=== PATIENT | female | born 1955 | race Caucasian/White ===

== ENCOUNTER 2017-12-18 09:02 | Emergency (ER) | payer MEDICARE, OTHER ==
[2017-12-18 09:17] VITALS: BP 136/88; PULSE 81; RESP 20; TEMP 98.7; O2SAT 99; BMI 30.2
[2017-12-18] MEDS ORDERED: Naproxen 550 mg Tab PO STA (09:41)
--- NOTE | 2017-12-18 09:44 | C.PDOC ---
History Of Present Illness 62 year old female presents to the ED for evaluation of muscle tenderness to her right medial scapular area for 1 week. She has been applying heat to the area and taking hot showers, which been worsening her symptoms. Patient denies falls or recent trauma/injury to the affected area. Time Seen by Provider: 12/18/17 09:29 Chief Complaint (Nursing): Back Pain History Per: Patient History/Exam Limitations: no limitations Onset/Duration Of Symptoms: Other (1 week) Current Symptoms Are (Timing): Still Present Quality Of Discomfort: "Pain" Additional History Per: Patient Past Medical History Reviewed: Historical Data, Nursing Documentation, Vital Signs Vital Signs: Last Vital Signs Temp 98.7 F 12/18/17 09:11 Pulse 81 12/18/17 09:11 Resp 20 12/18/17 09:11 BP 136/88 12/18/17 09:11 Pulse Ox 99 12/18/17 10:46 - Medical History PMH: Anxiety, Depression, HTN, Osteoporosis, Sleep Apnea (SCHEDULED FOR SLEEP STUDY) Denies: Chronic Kidney Disease Surgical History: No Surg Hx - [facility] Procedures ENDOSC POLYPECTOMY OF LG INTEST (08/25/14) Family History: States: Unknown Family Hx - Social History Hx Tobacco Use: No Hx Alcohol Use: No Hx Substance Use: No - Immunization History Hx Tetanus Toxoid Vaccination: No Hx Influenza Vaccination: No Hx Pneumococcal Vaccination: No Review Of Systems Musculoskeletal: Positive for: Other (muscle tenderness to right medial scapular area) Physical Exam - Physical Exam Appears: Non-toxic, No Acute Distress Skin: Normal Color, Warm, Dry Neck: Supple Back: Other (mild tenderness and swelling to right medial scapular region ) Extremity: Normal ROM, Capillary Refill (less than 2 seconds ) Neurological/Psych: Oriented x3, Normal Speech, Normal Cognition, Normal Sensation Gait: Steady ED Course And Treatment O2 Sat by Pulse Oximetry: 99 (on RA) Pulse Ox Interpretation: Normal Progress Note: Naproxen PO and Motrin PO administered. Medical Decision Making Medical Decision Making: thoracic paraspinal trapezius strain no s/s of onc process worse with prior heat therapies. ibuprofen makes her feel tired, so naproxyn- better tolerated. Disposition Doctor Will See Patient In The: Office Counseled Patient/Family Regarding: Studies Performed - Disposition Referrals: Brad Whittaker MD [Staff Provider] - Disposition: HOME/ ROUTINE Disposition Time: 09:44 Condition: GOOD Additional Instructions: [place]ols[place] de hielo 1/2 hora por hora, nada caliente, no gary caliente Naproxyn 550 mg cada 12 horas ramiro necessario Sigue con [facility]- pide MRI si no esta mejor en 2 semanas. Prescriptions: Naproxen [Naprosyn] 1 tab PO BID PRN #25 tab PRN Reason: Pain Instructions: Musculoskeletal Pain (ED) Forms: [employer] (Yoruba) Print Language: POLISH - Clinical Impression Clinical Impression: Thoracic back sprain - Scribe Statement The provider has reviewed the documentation as recorded by the Scribe (Marni Dahl) Provider Attestation: All medical record entries made by the Scribe were at my direction and personally dictated by me. I have reviewed the chart and agree that the record accurately reflects my personal performance of the history, physical exam, medical decision making, and the department course for this patient. I have also personally directed, reviewed, and agree with the discharge instructions and disposition.
[2017-12-18] MEDS ORDERED: Naproxen 550 mg Tab PO ONE (09:51)
== END 2017-12-18 10:10 | disposition home or self-care (01) ==
LOC: C.ER 09:02
DX: S23.3XXA Sprain of ligaments of thoracic spine, initial encounter (principal); X58.XXXA Exposure to other specified factors, initial encounter; Y92.9 Unspecified place or not applicable

== ENCOUNTER 2018-04-28 14:39 | Emergency (ER) | payer MEDICARE, OTHER ==
[2018-04-28 14:39] VITALS: BMI 29.2
[2018-04-28 14:54] VITALS: RESP 18
[2018-04-28] MEDS ORDERED: Sodium Chloride 0.9% 1,000 ML IV ONE (15:19)
[2018-04-28 15:43] LABS: BASO % 0.4 % (0.0-2.0); EOS % 0.2 % (0.0-4.0); HEMOGLOBIN 13.2 g/dL (11.0-16.0); LYMPH # 1.3 K/uL (1.0-4.3); LYMPH % 10.3 % (20.0-40.0); MEAN CELL VOLUME 85.6 fL (81.0-99.0); MEAN CORPUSCULAR HEMOGLOBIN 28.5 pg (27.0-31.0); MEAN CORPUSCULAR HGB CONC 33.3 g/dL (33.0-37.0); MEAN PLATELET VOLUME 7.2 fL (7.2-11.7); MONO # 1.6 K/uL (0.0-0.8); MONO % 12.6 % (0.0-10.0); NEUT % 76.5 % (50.0-75.0); RBC 4.62 Mil/uL (3.80-5.20); RED CELL DISTRIBUTION WIDTH 14.4 % (11.5-14.5); WHITE BLOOD COUNT 13.1 K/uL (4.8-10.8)
[2018-04-28] MEDS ORDERED: Sodium Chloride 0.9% 1,000 ML ONE (15:43)
[2018-04-28 16:00] LABS: ALB/GLOB RATIO 1.1 (1.0-2.1); CALCIUM 8.9 mg/dl (8.6-10.4); GFR AFRICAN-AMERICAN > 60; GFR NON-AFRICAN AMERICAN > 60; LIPASE 84 U/L (23-300)
[2018-04-28 16:04] LABS: ALT/SGPT 20 U/L (9-52); AST/SGOT 33 U/L (14-36); BLOOD UREA NITROGEN 10 mg/dL (7-17)
[2018-04-28] MEDS ORDERED: Iohexol 300 100 ML IJ ONE (16:22)
--- NOTE | 2018-04-28 17:35 | CT ---
PROCEDURE: CT Abdomen and Pelvis with contrast HISTORY: abd pain COMPARISON: None. TECHNIQUE: Following the intravenous administration of iodinated contrast material, a CT examination of the abdomen and pelvis performed from the domes of the diaphragms to the symphysis pubis with reformatted datasets provided not only axial but also sagittal and coronal planes. Oral contrast was not administered as per referring physician request. Contrast dose: Omnipaque 300, 100 cc Radiation dose: Total exam DLP = 643.46 mGy-cm. This CT exam was performed using one or more of the following dose reduction techniques: Automated exposure control, adjustment of the mA and/or kV according to patient size, and/or use of iterative reconstruction technique. FINDINGS: LOWER THORAX: Cardiomegaly Trace bilateral basilar dependent atelectasis identified. LIVER: Diffusely diminished attenuation is seen throughout the liver without focal mass or biliary tree dilatation, compatible hepatic steatosis. Liver also appears upper limits normal size. GALLBLADDER AND BILE DUCTS: Unremarkable. PANCREAS: Unremarkable. No gross lesion or ductal dilatation. SPLEEN: Unremarkable. ADRENALS: Unremarkable. No mass. KIDNEYS AND URETERS: Unremarkable. No hydronephrosis. No solid mass. VASCULATURE: Unremarkable. No aortic aneurysm. BOWEL: Stomach is decompressed as well as the vast majority of small bowel. No bowel obstruction is evident. Limited fecal loading is seen in various large-bowel segments. A tiny cecal diverticulum is evident as well as a few proximal sigmoid diverticula, without diverticulitis. APPENDIX: Not identified. Consider prior possible prior appendectomy. Nevertheless, no acute right lower quadrant changes are identified. PERITONEUM: Unremarkable. No free fluid. No free air. LYMPH NODES: Unremarkable. No enlarged lymph nodes. BLADDER: Unremarkable. REPRODUCTIVE: Questionable prior hysterectomy. The correlate further. BONES: No acute fracture. OTHER FINDINGS: None. IMPRESSION: 1. Hepatic steatosis and borderline hepatomegaly. 2. Infrequent colonic diverticular without acute changes. 3. No bowel obstruction, measure edema, ascites or free intraperitoneal gas appreciable. 4. Questionable prior hysterectomy. Clinically correlate.
[2018-04-28 18:13] VITALS: O2SAT 97
--- NOTE | 2018-04-28 18:16 | C.PDOC ---
History Of Present Illness 62 y/o female presents to ED with c/o abdominal pain associated with nausea and vomiting since last night. At ED patient is febrile and reports pain is worse of epigastric area. Patient denies diarrhea, dysuria, hematuria, back pain or any other complaints at this time. Time Seen by Provider: 04/28/18 14:47 Chief Complaint (Nursing): Abdominal Pain History Per: Patient History/Exam Limitations: no limitations Onset/Duration Of Symptoms: Days Current Symptoms Are (Timing): Still Present Location Of Pain/Discomfort: Epigastric Radiation Of Pain To:: None Quality Of Discomfort: "Pain" Past Medical History Reviewed: Historical Data, Nursing Documentation, Vital Signs Vital Signs: Last Vital Signs Temp 99.7 F H 04/28/18 18:54 Pulse 102 H 04/28/18 18:54 Resp 18 04/28/18 18:54 BP 111/66 04/28/18 18:54 Pulse Ox 97 04/28/18 20:11 - Medical History PMH: Anxiety, Depression, HTN, Osteoporosis, Chronic Kidney Disease, Sleep Apnea (SCHEDULED FOR SLEEP STUDY) Surgical History: No Surg Hx - [facility] Procedures ENDOSC POLYPECTOMY OF LG INTEST (08/25/14) Family History: States: No Known Family Hx - Social History Hx Tobacco Use: No Hx Alcohol Use: No Hx Substance Use: No - Immunization History Hx Tetanus Toxoid Vaccination: No Hx Influenza Vaccination: No Hx Pneumococcal Vaccination: No Review Of Systems Constitutional: Negative for: Fever, Chills Gastrointestinal: Positive for: Abdominal Pain. Negative for: Nausea, Vomiting , Diarrhea, Constipation Genitourinary: Negative for: Dysuria, Hematuria Musculoskeletal: Negative for: Back Pain Skin: Negative for: Rash Neurological: Negative for: Weakness, Numbness Physical Exam - Physical Exam Appears: Non-toxic, No Acute Distress Skin: Warm, Dry, No Rash Head: Atraumatic, Normacephalic Eye(s): bilateral: Normal Inspection Oral Mucosa: Moist Neck: Normal ROM, Supple Cardiovascular: Rhythm Regular Respiratory: Normal Breath Sounds, No Rales, No Rhonchi, No Wheezing Gastrointestinal/Abdominal: Soft, Tenderness (Epigastric), No Guarding, No Rebound Extremity: Normal ROM, Capillary Refill (<2 seconds) Neurological/Psych: Oriented x3, Normal Speech, Normal Cognition ED Course And Treatment - Laboratory Results Result Diagrams: 04/28/18 15:33 04/28/18 15:33 O2 Sat by Pulse Oximetry: 97 (RA) Pulse Ox Interpretation: Normal Medical Decision Making Medical Decision Making: ro gastroenteitits, gastritis, pud, gallbladder disease ct neg. mild non specific luekoctyosis. bedsdie us neg for cholecystitis. pt states she feels well for dc. tolerating po bedside. abd soft no ttp. b/p incorrectly documented 86 systolci. immediate subsequent b/p 107 systolci. Disposition - Disposition Referrals: [facility] [Outside] [facility] [Outside] Doris Loya [Staff Provider] - Disposition: HOME/ ROUTINE Disposition Time: 20:00 Condition: STABLE Additional Instructions: please follow up with your doctor. return to er with worsening symptoms or concerns. Prescriptions: Famotidine [Pepcid] 20 mg PO DAILY #20 tab Instructions: Nausea and Vomiting, Adult, Viral Gastroenteritis, Adult (DC) Forms: [employer] (Slovak) - Clinical Impression Clinical Impression: Abdominal pain - Scribe Statement The provider has reviewed the documentation as recorded by the Scribkerry Lebron All medical record entries made by the Scribe were at my direction and personally dictated by me. I have reviewed the chart and agree that the record accurately reflects my personal performance of the history, physical exam, medical decision making, and the department course for this patient. I have also personally directed, reviewed, and agree with the discharge instructions and disposition.
[2018-04-28 18:18] LABS: SQUAMOUS EPITHIAL 1 /hpf (0-5); URINE BILIRUBIN NEGATIVE (NEGATIVE); URINE BLOOD 1+ (NEGATIVE); URINE CLARITY Clear (Clear); URINE COLOR Straw (YELLOW); URINE GLUCOSE (UA) NORMAL (Normal); URINE LEUKOCYTE ESTERASE TRACE Leu/uL (Negative); URINE PROTEIN NEGATIVE (NEGATIVE); URINE UROBILINOGEN NORMAL mg/dL (0.2-1.0)
[2018-04-28 18:21] LABS: URINE BACTERIA RARE (<OCC)
[2018-04-28 18:55] VITALS: BP 111/66; PULSE 102; TEMP 99.7
== END 2018-04-28 18:55 | disposition home or self-care (01) ==
LOC: C.ER 14:39
DX: R10.9 Unspecified abdominal pain (principal); I12.9 Hypertensive chronic kidney disease with stage 1 through stage 4 chronic kidney disease, or unspecified chronic kidney disease; N18.9 Chronic kidney disease, unspecified
CPT/HCPCS: 74177; 80053; 81001; 83690; 85025; 96361; 96374; 96375; 99285; C9113; J2405; J7030; Q9967

== ENCOUNTER 2018-07-07 15:20 | Inpatient (IN) | payer MEDICARE, OTHER ==
[2018-07-07 15:21] VITALS: BMI 29.2
--- NOTE | 2018-07-07 15:39 | C.PDOC ---
History Of Present Illness <Felicitas Swartz - Last Filed: 07/07/18 15:38> <Caridad Brewster - Last Filed: 07/07/18 16:58> 62 year old female presents to ED complaining of fever associated with nausea, vomiting, and chills since 04:00 today. Patient reports she had something similar to this a few months ago and went to a hospital and got a work up. Patient is a poor historian and does not remember what hospital she went to, or what the diagnosis was. Patient offers no other medical complaints at this time. (Ney,Caridad) <Felicitas Swartz - Last Filed: 07/07/18 15:38> History Per: Patient History/Exam Limitations: no limitations Onset/Duration Of Symptoms: Hrs Current Symptoms Are (Timing): Still Present <Caridad Brewster - Last Filed: 07/07/18 16:58> Time Seen by Provider: 07/07/18 15:37 Chief Complaint (Nursing): Abdominal Pain Past Medical History - Medical History PMH: Anxiety, Depression, HTN, Osteoporosis, Chronic Kidney Disease, Sleep Apnea (SCHEDULED FOR SLEEP STUDY) - Social History Hx Tobacco Use: No Hx Alcohol Use: No Hx Substance Use: No - Immunization History Hx Tetanus Toxoid Vaccination: No Hx Influenza Vaccination: No Hx Pneumococcal Vaccination: No <Felicitas Swartz - Last Filed: 07/07/18 15:38> Reviewed: Historical Data, Nursing Documentation, Vital Signs Surgical History: No Surg Hx Family History: States: No Known Family Hx <Caridad Brewster - Last Filed: 07/07/18 16:58> Vital Signs: Last Vital Signs Temp 102.8 F H 07/07/18 15:27 Pulse 110 H 07/07/18 15:27 Resp 21 07/07/18 15:27 BP 147/90 07/07/18 15:27 Pulse Ox 98 07/07/18 15:39 - [facility] Procedures ENDOSC POLYPECTOMY OF LG INTEST (08/25/14) Review Of Systems Except As Marked, All Systems Reviewed And Found Negative. Constitutional: Positive for: Fever, Chills Gastrointestinal: Positive for: Nausea, Vomiting Neurological: Negative for: Weakness, Numbness <Caridad Brewster - Last Filed: 07/07/18 16:58> Physical Exam - Physical Exam Appears: Well, Non-toxic, No Acute Distress Skin: Warm, Dry Head: Atraumatic, Normacephalic Eye(s): bilateral: Normal Inspection Oral Mucosa: Moist Neck: Supple Chest: Symmetrical Cardiovascular: Rhythm Regular (tachycardic) Respiratory: Normal Breath Sounds, No Rales, No Rhonchi, No Wheezing Gastrointestinal/Abdominal: Soft, Tenderness (epigastric), No Guarding, No Rebound Neurological/Psych: Oriented x3 Gait: Steady <Cairdad Brewster - Last Filed: 07/07/18 16:58> ED Course And Treatment O2 Sat by Pulse Oximetry: 98 <Felicitas Swartz - Last Filed: 07/07/18 15:38> - Laboratory Results Result Diagrams: 07/07/18 16:03 07/07/18 16:03 O2 Sat by Pulse Oximetry: 98 (RA) Pulse Ox Interpretation: Normal <Caridad Brewster - Last Filed: 07/07/18 16:58> Disposition <Felicitas Swartz - Last Filed: 07/07/18 15:38> <Caridad Brewster - Last Filed: 07/07/18 16:58> - Disposition Forms: [employer] (Monegasque)
[2018-07-07] MEDS ORDERED: Sodium Chloride 0.9% 1,000 ML IV STA (15:43)
[2018-07-07 16:12] LABS: BASO % 0.4 % (0.0-2.0); EOS % 0.3 % (0.0-4.0); HEMOGLOBIN 12.6 g/dL (11.0-16.0); LYMPH # 1.7 K/uL (1.0-4.3); LYMPH % 18.3 % (20.0-40.0); MEAN CELL VOLUME 84.1 fL (81.0-99.0); MEAN CORPUSCULAR HEMOGLOBIN 28.2 pg (27.0-31.0); MEAN CORPUSCULAR HGB CONC 33.5 g/dL (33.0-37.0); MEAN PLATELET VOLUME 7.2 fL (7.2-11.7); MONO # 0.9 K/uL (0.0-0.8); MONO % 10.2 % (0.0-10.0); NEUT # 6.4 K/uL (1.8-7.0); NEUT % 70.8 % (50.0-75.0); NRBC % 0.2 % (0.0-2.0); RBC 4.46 Mil/uL (3.80-5.20); WHITE BLOOD COUNT 9.1 K/uL (4.8-10.8)
[2018-07-07 16:14] LABS: SQUAMOUS EPITHIAL 16 /hpf (0-5); URINE BACTERIA RARE (<OCC); URINE BILIRUBIN NEGATIVE (NEGATIVE); URINE BLOOD 1+ (NEGATIVE); URINE CLARITY Hazy (Clear); URINE COLOR Yellow (YELLOW); URINE GLUCOSE (UA) NORMAL (Normal); URINE LEUKOCYTE ESTERASE 3+ Leu/uL (Negative); URINE PROTEIN NEGATIVE (NEGATIVE); URINE UROBILINOGEN NORMAL mg/dL (0.2-1.0)
[2018-07-07 16:22] LABS: ALB/GLOB RATIO 1.3 (1.0-2.1); ALBUMIN 4.2 g/dL (3.5-5.0); ALT/SGPT 35 U/L (9-52); AST/SGOT 24 U/L (14-36); BLOOD UREA NITROGEN 10 mg/dL (7-17); CALCIUM 9.2 mg/dl (8.6-10.4); GFR AFRICAN-AMERICAN > 60; GFR NON-AFRICAN AMERICAN > 60; LIPASE 81 U/L (23-300)
--- NOTE | 2018-07-07 16:24 | RAD ---
Date of service: 07/07/2018 PROCEDURE: CHEST RADIOGRAPH, 1 VIEW HISTORY: abd pain, fever COMPARISON: Chest radiographs 12/06/2015. FINDINGS: LUNGS: Reticular markings are somewhat increased at the bases appears unclear with this is a function of crowding of bronchovascular markings from limited inspiratory volume or possible early bibasilar interstitial pneumonitis. Consider possible reactive airways disease or other infectious or inflammatory process. PLEURA: No pneumothorax or pleural fluid seen. CARDIOVASCULAR: Stable cardiomediastinal silhouette. No pulmonary vascular congestion. OSSEOUS STRUCTURES: No significant abnormalities. VISUALIZED UPPER ABDOMEN: Normal. OTHER FINDINGS: None. IMPRESSION: Potential limited interstitial pneumonitis of the bilateral bases though this is not definite. Pattern may be a function of crowding of bronchovascular markings do through diminished inspiratory volume. No alveolitis, pleural effusion or pneumothorax bilaterally. Stable prominent cardiac silhouette.
--- NOTE | 2018-07-07 17:03 | C.PDOC ---
History Of Present Illness 62 year old female presents to ED complaining of fever associated with nausea, vomiting, and chills since 04:00 today. Patient reports she had something similar to this a few months ago and went to a hospital and got a work up. Patient is a poor historian and does not remember what hospital she went to, or what the diagnosis was. Patient offers no other medical complaints at this time. Time Seen by Provider: 07/07/18 15:37 Chief Complaint (Nursing): Abdominal Pain History Per: Patient History/Exam Limitations: no limitations Onset/Duration Of Symptoms: Hrs Current Symptoms Are (Timing): Still Present Associated Symptoms: Fever, Chills, Nausea, Vomiting Recent travel outside of the [place]: No Past Medical History Reviewed: Historical Data, Nursing Documentation, Vital Signs Vital Signs: Last Vital Signs Temp 100.2 F H 07/07/18 17:03 Pulse 111 H 07/07/18 17:03 Resp 20 07/07/18 17:03 BP 116/79 07/07/18 17:03 Pulse Ox 98 07/07/18 17:57 - Medical History PMH: Anxiety, Depression, HTN, Osteoporosis, Chronic Kidney Disease, Sleep Apnea (SCHEDULED FOR SLEEP STUDY) Surgical History: No Surg Hx - [facility] Procedures ENDOSC POLYPECTOMY OF LG INTEST (08/25/14) Family History: States: No Known Family Hx - Social History Hx Tobacco Use: No Hx Alcohol Use: No Hx Substance Use: No - Immunization History Hx Tetanus Toxoid Vaccination: No Hx Influenza Vaccination: No Hx Pneumococcal Vaccination: No Review Of Systems Constitutional: Positive for: Fever, Chills Gastrointestinal: Positive for: Nausea, Vomiting Neurological: Negative for: Weakness, Numbness Physical Exam - Physical Exam Appears: Well, Non-toxic, No Acute Distress Skin: Warm, Dry Head: Atraumatic, Normacephalic Eye(s): bilateral: Normal Inspection Neck: Supple Chest: Symmetrical Cardiovascular: Rhythm Regular (tachycardic) Respiratory: Normal Breath Sounds, No Rales, No Rhonchi, No Wheezing Gastrointestinal/Abdominal: Soft, Tenderness (epigastric ), No Guarding, No Rebound Neurological/Psych: Oriented x3 Gait: Steady ED Course And Treatment - Laboratory Results Result Diagrams: 07/07/18 16:03 07/07/18 16:03 O2 Sat by Pulse Oximetry: 98 (RA) Pulse Ox Interpretation: Normal - Other Rad CXR X-Ray: Read By Radiologist Interpretation: FINDINGS: LUNGS: Reticular markings are somewhat increased at the bases appears unclear with this is a function of crowding of bronchovascular markings from limited inspiratory volume or possible early bibasilar interstitial pneumonitis. Consider possible reactive airways disease or other infectious or inflammatory process. PLEURA: No pneumothorax or pleural fluid seen. CARDIOVASCULAR: Stable cardiomediastinal silhouette. No pulmonary vascular congestion. OSSEOUS STRUCTURES: No significant abnormalities. VISUALIZED UPPER ABDOMEN: Normal. OTHER FINDINGS: None. IMPRESSION: Potential limited interstitial pneumonitis of the bilateral bases though this is not definite. Pattern may be a function of crowding of bronchovascular markings do through diminished inspiratory volume. No alveolitis , pleural effusion or pneumothorax bilaterally. Stable prominent cardiac silhouette. - CT Scan/US US Abdomen Other Rad Studies (CT/US): Radiology Report Reviewed CT/US Interpretation: FINDINGS: LIVER: Measures 17.8 cm in length. Hepatopedal blood flow. Fatty infiltration manifest ultrasonographically as increased echogenicity of the liver parenchyma. No mass. No intrahepatic bile duct dilatation. GALLBLADDER: Unremarkable. No gallstones. COMMON BILE DUCT: Measures 4.2 mm. No stones. No dilatation. PANCREAS: Unremarkable as visualized. No mass. No ductal dilatation. RIGHT KIDNEY: Measures 4 x 10.5 cm in length. Normal echogenicity. No calculus, mass, or hydronephrosis. AORTA: No aneurysmal dilatation. IVC: Unremarkable. OTHER FINDINGS: None . IMPRESSION: No acute findings related to/accounting for the clinical presentation. Additional benign and/or incidental findings described above. Progress Note: Labs, US of abdomen ordered. Patient given tylenol 975 mg PO, zofran, and IV fluids. Case was d/w who requested CT abdomen with po and IV contrast and accepted patient to [place] for observation. Disposition - Disposition Disposition: HOSPITALIZED Disposition Time: 18:36 Condition: FAIR Forms: [facility] (Belarusian) - Clinical Impression Clinical Impression: Vomiting, Abdominal pain, UTI (urinary tract infection), Pneumonitis - PA / WELFARE ANALYST / Resident Statement MD/DO has reviewed & agrees with the documentation as recorded. - Scribe Statement The provider has reviewed the documentation as recorded by the Romarioibe Venkatesh Ludwig All medical record entries made by the Hany were at my direction and personally dictated by me. I have reviewed the chart and agree that the record accurately reflects my personal performance of the history, physical exam, medical decision making, and the department course for this patient. I have also personally directed, reviewed, and agree with the discharge instructions and disposition. Decision To Admit - Pt Status Changed To: Hospital Disposition Of: Observation - . Bed Request Type: Regular Admitting Physician: Jamarcus Hudson Patient Diagnosis: Vomiting, Abdominal pain, UTI (urinary tract infection), Pneumonitis
--- NOTE | 2018-07-07 17:15 | US ---
Date of service: 07/07/2018 HISTORY: epigastric pain/fever COMPARISON: None. TECHNIQUE: Sonographic evaluation of the right upper quadrant of the abdomen. FINDINGS: LIVER: Measures 17.8 cm in length. Hepatopedal blood flow. Fatty infiltration manifest ultrasonographically as increased echogenicity of the liver parenchyma. No mass. No intrahepatic bile duct dilatation. GALLBLADDER: Unremarkable. No gallstones. COMMON BILE DUCT: Measures 4.2 mm. No stones. No dilatation. PANCREAS: Unremarkable as visualized. No mass. No ductal dilatation. RIGHT KIDNEY: Measures 4 x 10.5 cm in length. Normal echogenicity. No calculus, mass, or hydronephrosis. AORTA: No aneurysmal dilatation. IVC: Unremarkable. OTHER FINDINGS: None . IMPRESSION: No acute findings related to/accounting for the clinical presentation. Additional benign and/or incidental findings described above.
[2018-07-07] MEDS ORDERED: cefTRIAXone IV 1 gm in Dextros 50 ML IVPB ONE (17:59)
[2018-07-07] MEDS ORDERED: Iohexol 240 (50 ml) PO STA (18:33)
[2018-07-07] MEDS ORDERED: Iohexol 240 (50 ml) ONE (18:41)
[2018-07-07] MEDS ORDERED: Iohexol 300 100 ML IJ ONE (19:03)
[2018-07-07 22:11] LABS: SQUAMOUS EPITHIAL 5 /hpf (0-5); URINE BILIRUBIN NEGATIVE (NEGATIVE); URINE BLOOD 1+ (NEGATIVE); URINE CLARITY Clear (Clear); URINE COLOR Yellow (YELLOW); URINE GLUCOSE (UA) NORMAL (Normal); URINE LEUKOCYTE ESTERASE 3+ Leu/uL (Negative); URINE PROTEIN NEGATIVE (NEGATIVE); URINE UROBILINOGEN NORMAL mg/dL (0.2-1.0)
--- NOTE | 2018-07-07 23:03 | CP.PCM.HP ---
<Delfina Morales - Last Filed: 07/07/18 23:19> History of Present Illness - History of Present Illness History of Present Illness: CC: Abdominal pain HPI: Patient is a 62 year old female with past medical history of hypertension, depression, gastritis, arthritis, osteoporosis, sleep apnea ( on Bipap at home), who presents to the ED with complaint of epigastric pain> lower abdominal pain with associated symptoms of subjective fever, nausea, non- bilious vomiting(x2) and urinary frequency x1-2 days. Patient reports that she was diagnosed with UTI 3 months ago and was seen by a Urologist, who prescribed a course of antibiotics for 10 days. Patient was suppose to follow up with the urologist but she never did. Patient admits to subjective fever, chills, nausea , vomiting, abdominal pain (epigastric> lower region), urinary frequency but denies hematuria, hematochezia, recent sickness, sick contact. Code Status: Full code PMD: Dr. Whittaker PMHx: hypertension, depression, gastritis, arthritis, osteoporosis, sleep apnea ( on Bipap at home) PSHx: X1, Hysterectomy and Fibroid removal FHx: Father ( alive, cardiomyopathy), Paternal Uncle ( Cardiomyopathy), Mother ( alive, lymphoma, DM and Osteoporosis) Medications: Atenolol 50mg PO daily, Alendronate 150mg PO daily, Ca2+ Carbonate 150mg PO QD, Protonix 40mg PO daily Allergies: NKDA Social Hx: Lives alone on disability. Denies current or former use of tobacco, ETOH and illicit drugs Present on Admission - Present on Admission Any Indicators Present on Admission: No Review of Systems - Constitutional Constitutional: Chills, Fever, Weakness. absent: Excessive Sweating, Headache, Increased Appetite, Night Sweats - EENT Eyes: absent: Blurred Vision, Change in Vision Ears: absent: Ear Discharge, Dizziness Nose/Mouth/Throat: absent: Nasal Congestion, Nasal Discharge - Cardiovascular Cardiovascular: absent: Chest Pain, Diaphoresis, Dyspnea, Dyspnea on Exertion, Lightheadedness, Palpitations - Respiratory Respiratory: absent: Dyspnea - Gastrointestinal Gastrointestinal: Abdominal Pain, Nausea, Vomiting. absent: Bloating, Change in Stool Character, Cramping, Dysphagia, Fecal Incontinence - Genitourinary Genitourinary: Flank Pain, Nocturia, Urinary Frequency. absent: Difficulty Urinating, Dysuria, Hematuria, Pyuria - Reproductive: Female Reproductive:Female: S/P Hysterectomy - Musculoskeletal Musculoskeletal: Back Pain. absent: Arthralgias, Limited Range of Motion, Numbness, Tingling - Integumentary Integumentary: absent: Rash - Neurological Neurological: absent: Dizziness, Headaches, Tingling, Weakness - Psychiatric Psychiatric: Change in Appetite - Endocrine Endocrine: absent: Fatigue, Palpitations Past Patient History - Past Medical History & Family History Past Medical History?: Yes - Past Social History Smoking Status: Never Smoked - CARDIAC Hx Hypertension: Yes - PULMONARY Hx Sleep Apnea: Yes (SCHEDULED FOR SLEEP STUDY) - NEUROLOGICAL Hx Neurological Disorder: No - HEENT Hx HEENT Problems: Yes Hx Glaucoma: Yes - RENAL Hx Chronic Kidney Disease: Yes - ENDOCRINE/METABOLIC Hx Endocrine Disorders: No - HEMATOLOGICAL/ONCOLOGICAL Hx Blood Disorders: No - INTEGUMENTARY Hx Dermatological Problems: No - MUSCULOSKELETAL/RHEUMATOLOGICAL Hx Osteoporosis: Yes - GASTROINTESTINAL Hx Gastrointestinal Disorders: Yes Hx Gastroesophageal Reflux: Yes - GENITOURINARY/GYNECOLOGICAL Hx Genitourinary Disorders: No - PSYCHIATRIC Hx Anxiety: Yes Hx Depression: Yes Hx Substance Use: No - SURGICAL HISTORY Hx Surgeries: Yes Hx Eye Surgery: Yes Hx Hysterectomy: Yes - ANESTHESIA Hx Anesthesia: Yes Hx Anesthesia Reactions: No Hx Malignant Hyperthermia: No Meds Allergies/Adverse Reactions: Allergies Allergy/AdvReac Type Severity Reaction Status Date / Time No Known Allergies Allergy Verified 07/07/18 15:32 Physical Exam - Constitutional Appears: No Acute Distress - Head Exam Head Exam: ATRAUMATIC, NORMAL INSPECTION - Eye Exam Eye Exam: EOMI, Normal appearance, PERRL Pupil Exam: NORMAL ACCOMODATION - ENT Exam ENT Exam: Mucous Membranes Moist - Respiratory Exam Respiratory Exam: Clear to Auscultation Bilateral, NORMAL BREATHING PATTERN. absent: Decreased Breath Sounds, Prolonged Expiratory Phase, Rhonchi, Wheezes - Cardiovascular Exam Cardiovascular Exam: REGULAR RHYTHM, +S1, +S2. absent: Tachycardia - GI/Abdominal Exam GI & Abdominal Exam: Normal Bowel Sounds, Soft, Tenderness Additional comments: Epigastric tenderness and lower abdominal pressure on palpation - Extremities Exam Extremities exam: Positive for: normal inspection. Negative for: calf tenderness, pedal edema, tenderness - Back Exam Back exam: CVA tenderness (R). absent: CVA tenderness (L), NORMAL INSPECTION - Neurological Exam Neurological exam: Alert, Oriented x3, Reflexes Normal - Psychiatric Exam Psychiatric exam: Normal Affect - Skin Skin Exam: Normal Color Results - Vital Signs Recent Vital Signs: Last Vital Signs Temp 98.7 F 07/07/18 22:42 Pulse 101 H 07/07/18 22:42 Resp 18 07/07/18 22:42 BP 128/82 07/07/18 22:42 Pulse Ox 98 07/07/18 22:42 - Labs Result Diagrams: 07/07/18 16:03 07/07/18 16:03 Labs: Laboratory Results - last 24 hr 07/07/18 07/07/18 07/07/18 16:03 16:03 16:03 WBC 9.1 RBC 4.46 Hgb 12.6 Hct 37.5 MCV 84.1 MCH 28.2 MCHC 33.5 RDW 14.0 Plt Count 255 MPV 7.2 Neut % (Auto) 70.8 Lymph % (Auto) 18.3 L [place] % (Auto) 10.2 H Eos % (Auto) 0.3 Baso % (Auto) 0.4 Neut # (Auto) 6.4 Lymph # (Auto) 1.7 [place] # (Auto) 0.9 H Eos # (Auto) 0.0 Baso # (Auto) 0.0 Sodium 141 Potassium 4.0 Chloride 105 Carbon Dioxide 22 Anion Gap 18 BUN 10 Creatinine 0.6 L Est GFR ( Amer) > 60 Est GFR (Non-Af Amer) > 60 Random Glucose 119 H Lactic Acid 2.2 H Calcium 9.2 Total Bilirubin 0.7 AST 24 ALT 35 Alkaline Phosphatase 61 Total Protein 7.5 Albumin 4.2 Globulin 3.3 Albumin/Globulin Ratio 1.3 Lipase 81 Urine Color Urine Clarity Urine pH Ur Specific [place] Urine Protein Urine Glucose (UA) Urine Ketones Urine Blood Urine Nitrate Urine Bilirubin Urine Urobilinogen Ur Leukocyte Esterase Urine WBC (Auto) Urine RBC (Auto) Ur Squamous Epith Cells Urine Bacteria 07/07/18 07/07/18 16:04 22:00 WBC RBC Hgb Hct MCV MCH MCHC RDW Plt Count MPV Neut % (Auto) Lymph % (Auto) [place] % (Auto) Eos % (Auto) Baso % (Auto) Neut # (Auto) Lymph # (Auto) [place] # (Auto) Eos # (Auto) Baso # (Auto) Sodium Potassium Chloride Carbon Dioxide Anion Gap BUN Creatinine Est GFR ( Amer) Est GFR (Non-Af Amer) Random Glucose Lactic Acid Calcium Total Bilirubin AST ALT Alkaline Phosphatase Total Protein Albumin Globulin Albumin/Globulin Ratio Lipase Urine Color Yellow Yellow Urine Clarity Hazy Clear Urine pH 5.0 5.0 Ur Specific [place] 1.015 > 1.060 H Urine Protein Negative Negative Urine Glucose (UA) Normal Normal Urine Ketones Negative Negative Urine Blood 1+ H 1+ H Urine Nitrate Negative Negative Urine Bilirubin Negative Negative Urine Urobilinogen Normal Normal Ur Leukocyte Esterase 3+ H 3+ H Urine WBC (Auto) 22 H 32 H Urine RBC (Auto) 4 H 13 H Ur Squamous Epith Cells 16 H 5 Urine Bacteria Rare Assessment & Plan (1) Sepsis Assessment and Plan: Secondary to UTI On admission: Tmax: 102.8 HR: 110 UA: ( 3+ LE) and Urine WBC: 3 Chest X-ray (07/07/18): Potential limited interstitial pneumonitis of the bilateral bases though this is not definite. Pattern may be a function of crowding of bronchovascular markings do through diminished inspiratory volume. No alveolitis, pleural effusion or pneumothorax bilaterally. Stable prominent cardiac silhouette. Management: * NS @ 100mls/hr * Tylenol 650mg PO Q6H PRN (Fever> 100.6) * Rocephin 1gm IV daily * Florastor 250mg PO BID * F/u urine culture and sensitivity, blood culture Status: Acute (2) UTI (urinary tract infection) Assessment and Plan: On admission: Tmax: 102.8 HR: 110 UA: ( 3+ LE) and Urine WBC: 3 Imaging: Abdomen/Pelvis CT: F/u official report Management: * NS @ 100mls/hr * Tylenol 650mg PO Q6H PRN (Fever> 100.6) * Rocephin 1gm IV daily * Florastor 250mg PO BID * F/u urine culture and sensitivity Status: Acute (3) Abdominal pain Assessment and Plan: Resolving Imaging: * Abdomen US (07/07/18): No acute findings related to/accounting for the clinical presentation. Additional benign and/or incidental findings described above. Measures 17.8 cm in length. Hepatopedal blood flow. Fatty infiltration manifest ultrasonographically as increased echogenicity of the liver parenchyma. No mass. No intrahepatic bile duct dilatation. * Abdomen/Pelvis CT: F/u official report Status: Acute (4) History of gastritis Assessment and Plan: Protonix 40mg IV daily Status: Acute (5) Vomiting Assessment and Plan: Zofran 4mg IV Q6H PRN Status: Acute (6) History of osteoporosis Assessment and Plan: Continue home medications: * Alendronate 150mg PO daily ( Held, due to possible GI side effects with patient's present presentation of epigastric pain) * Calcium Carbonate 1 tab PO BID Status: Acute (7) History of hypertension Assessment and Plan: Continue home medication: * Atenolol 50mg PO QD Status: Acute (8) Prophylactic measure Assessment and Plan: GI: Protonix 40mg IV daily DVT: Score of 2 (Age < 61 and BMI > 30): SCDs and Lovenox 40mg SC daily All plans and management discussed with Dr. Hudson Status: Acute <Jamarcus Hudson - Last Filed: 07/08/18 02:18> Results - Vital Signs Recent Vital Signs: Last Vital Signs Temp 99.2 F 07/07/18 23:00 Pulse 100 H 07/08/18 00:58 Resp 20 07/07/18 23:00 BP 129/82 07/07/18 23:00 Pulse Ox 98 07/08/18 00:01 - Labs Result Diagrams: 07/07/18 16:03 07/07/18 16:03 Labs: Laboratory Results - last 24 hr 07/07/18 07/07/18 07/07/18 16:03 16:03 16:03 WBC 9.1 RBC 4.46 Hgb 12.6 Hct 37.5 MCV 84.1 MCH 28.2 MCHC 33.5 RDW 14.0 Plt Count 255 MPV 7.2 Neut % (Auto) 70.8 Lymph % (Auto) 18.3 L [place] % (Auto) 10.2 H Eos % (Auto) 0.3 Baso % (Auto) 0.4 Neut # (Auto) 6.4 Lymph # (Auto) 1.7 [place] # (Auto) 0.9 H Eos # (Auto) 0.0 Baso # (Auto) 0.0 Sodium 141 Potassium 4.0 Chloride 105 Carbon Dioxide 22 Anion Gap 18 BUN 10 Creatinine 0.6 L Est GFR ( Amer) > 60 Est GFR (Non-Af Amer) > 60 Random Glucose 119 H Lactic Acid 2.2 H Calcium 9.2 Total Bilirubin 0.7 AST 24 ALT 35 Alkaline Phosphatase 61 Total Protein 7.5 Albumin 4.2 Globulin 3.3 Albumin/Globulin Ratio 1.3 Lipase 81 Urine Color Urine Clarity Urine pH Ur Specific [place] Urine Protein Urine Glucose (UA) Urine Ketones Urine Blood Urine Nitrate Urine Bilirubin Urine Urobilinogen Ur Leukocyte Esterase Urine WBC (Auto) Urine RBC (Auto) Ur Squamous Epith Cells Urine Bacteria 07/07/18 07/07/18 16:04 22:00 WBC RBC Hgb Hct MCV MCH MCHC RDW Plt Count MPV Neut % (Auto) Lymph % (Auto) [place] % (Auto) Eos % (Auto) Baso % (Auto) Neut # (Auto) Lymph # (Auto) [place] # (Auto) Eos # (Auto) Baso # (Auto) Sodium Potassium Chloride Carbon Dioxide Anion Gap BUN Creatinine Est GFR ( Amer) Est GFR (Non-Af Amer) Random Glucose Lactic Acid Calcium Total Bilirubin AST ALT Alkaline Phosphatase Total Protein Albumin Globulin Albumin/Globulin Ratio Lipase Urine Color Yellow Yellow Urine Clarity Hazy Clear Urine pH 5.0 5.0 Ur Specific [place] 1.015 > 1.060 H Urine Protein Negative Negative Urine Glucose (UA) Normal Normal Urine Ketones Negative Negative Urine Blood 1+ H 1+ H Urine Nitrate Negative Negative Urine Bilirubin Negative Negative Urine Urobilinogen Normal Normal Ur Leukocyte Esterase 3+ H 3+ H Urine WBC (Auto) 22 H 32 H Urine RBC (Auto) 4 H 13 H Ur Squamous Epith Cells 16 H 5 Urine Bacteria Rare Attending/Attestation - Attestation I have personally seen and examined this patient.: Yes I have fully participated in the care of the patient.: Yes I have reviewed all pertinent clinical information: Yes Notes (Text): 07/08/18 02:14 Patient presented with epigastric pain and fever for 1.5 days, temp spike noted in ER, no urinary symptoms but abnormal infected looking picture. Epigasrium tender. CT as per radiology no acute changes, no clear separation noticed between duodenal wall and pancreas, suspecious for some inflammation and fat stranding. Exposure to Motrin for OA. Plan NPO except meds ICE chips GI consult for probably endoscopy PPI iv. Counselled about NSAIDS. Gi/dvt prophylaxis See orders for detail.
[2018-07-07] MEDS: Sodium Chloride 0.9% 1,000 ML IV SCH (23:10)
[2018-07-08 08:40] LABS: BASO % 0.7 % (0.0-2.0); EOS % 0.7 % (0.0-4.0); HEMOGLOBIN 12.3 g/dL (11.0-16.0); LYMPH # 1.3 K/uL (1.0-4.3); LYMPH % 32.2 % (20.0-40.0); MEAN CELL VOLUME 84.1 fL (81.0-99.0); MEAN CORPUSCULAR HEMOGLOBIN 29.3 pg (27.0-31.0); MEAN CORPUSCULAR HGB CONC 34.9 g/dL (33.0-37.0); MEAN PLATELET VOLUME 7.2 fL (7.2-11.7); MONO # 0.3 K/uL (0.0-0.8); MONO % 8.8 % (0.0-10.0); NEUT # 2.3 K/uL (1.8-7.0); NEUT % 57.6 % (50.0-75.0); RBC 4.2 Mil/uL (3.80-5.20); RED CELL DISTRIBUTION WIDTH 14.3 % (11.5-14.5)
[2018-07-08 08:58] LABS: ALB/GLOB RATIO 1.4 (1.0-2.1); ALBUMIN 4.1 g/dL (3.5-5.0); ALT/SGPT 28 U/L (9-52); AST/SGOT 21 U/L (14-36); BLOOD UREA NITROGEN 6 mg/dL (7-17); CALCIUM 8.8 mg/dl (8.6-10.4); GFR AFRICAN-AMERICAN > 60; GFR NON-AFRICAN AMERICAN > 60
--- NOTE | 2018-07-08 09:20 | CT ---
Date of service: 07/07/2018 PROCEDURE: CT Abdomen and Pelvis without intravenous contrast HISTORY: pain, nausea, fever COMPARISON: Ultrasound dated 07/07/2018 TECHNIQUE: Multiple contiguous axial images were performed through the abdomen and pelvis with the use of intravenous contrast. Subsequently, sagittal and coronal reformatted images were obtained. Radiation dose: Total exam DLP = 739 mGy-cm. This CT exam was performed using one or more of the following dose reduction techniques: Automated exposure control, adjustment of the mA and/or kV according to patient size, and/or use of iterative reconstruction technique. FINDINGS: LOWER THORAX: Atelectasis at the lung bases. LIVER: Fatty infiltration of the liver. GALLBLADDER AND BILE DUCTS: Unremarkable. PANCREAS: Unremarkable. No gross lesion or ductal dilatation. SPLEEN: Unremarkable. ADRENALS: Unremarkable. No mass. KIDNEYS AND URETERS: Punctate hypodensity in the midpole of the right kidney, too small to adequately characterize. VASCULATURE: Atherosclerotic disease in the aorta. BOWEL: Diverticulosis in the colon without evidence of diverticulitis. APPENDIX: Unremarkable. Normal appendix. PERITONEUM: Unremarkable. No free fluid. No free air. LYMPH NODES: Unremarkable. No enlarged lymph nodes. BLADDER: Unremarkable. REPRODUCTIVE: Unremarkable. BONES: No acute fracture. OTHER FINDINGS: None. IMPRESSION: Negative acute. Additional findings as above. These findings were preliminarily reported at 8:17 p.m. on 07/07/[address] Chaz Villatoro from [facility].
[2018-07-08] MEDS: Enoxaparin 30 mg Syringe SC SCH (09:39)
[2018-07-08] MEDS: Saccharomyces Boulardi 250 mg Cap PO SCH ×2 (09:39→18:00)
[2018-07-08] MEDS: Calcium-Vit D 250 mg-125 Units Tab UD PO SCH ×2 (09:39→18:00)
[2018-07-08] MEDS: Sodium Chloride 0.9% 1,000 ML IV SCH (09:40)
[2018-07-08] MEDS ORDERED: ALENDRONATE PO SCH (10:00)
[2018-07-08] MEDS ORDERED: Pantoprazole 40 mg EC Tab PO SCH (10:00)
[2018-07-08] MEDS ORDERED: Propofol 10 mg/ml Inj (20 ML) ONE (12:01)
[2018-07-08] MEDS ORDERED: Albuterol-Ipratrop 3 mg / 0.5 (3 ml) UD INH STA (12:26)
[2018-07-08] MEDS ORDERED: Albuterol-Ipratrop 3 mg / 0.5 (3 ml) UD ONE (12:39)
--- NOTE | 2018-07-08 13:17 | CP.PCM.PN ---
<Bouchra Haywood - Last Filed: 07/08/18 15:00> Subjective - Date & Time of Evaluation Date of Evaluation: 07/08/18 Time of Evaluation: 08:50 - Subjective Subjective: PGY-1 Bouchra Haywood D.O. Medicine service note for Dr. Antonio Batista's service : Patient seen and examined this morning. She was not in any acute distress. With the help of a sign artist, we explained to her that the CT was normal and we were pending further evaluation by GI. She was complaining of some mild epigastric pain. ?Possibly her diet is contributing to severe gastritis. Later in the day, patient underwent EGD by GI showing gastric polyp. Pending colonoscopy for tomorrow. Objective - Vital Signs/Intake and Output Vital Signs (last 24 hours): Temp Pulse Resp BP Pulse Ox 98.0 F 89 18 150/91 H 96 07/08/18 11:54 07/08/18 11:54 07/08/18 11:54 07/08/18 11:54 07/08/18 11:54 Intake and Output: 07/08/18 07/08/18 06:59 18:59 Intake Total 900 200 Balance 900 200 - Medications Medications: Current Medications Acetaminophen (Tylenol 325mg Tab) 650 mg PO Q6 PRN PRN Reason: Fever >100.4 F Atenolol (Tenormin) 50 mg PO DAILY [facility] Last Admin: 07/08/18 09:39 Dose: 50 mg Bisacodyl (Dulcolax) 10 mg PO ONCE ONE Stop: 07/08/18 17:01 Calcium/Vitamin D (Oscal-D 250 Mg-125 Units Tab) 1 tab PO BID [facility] Last Admin: 07/08/18 09:39 Dose: 1 tab Enoxaparin Sodium (Lovenox) 30 mg SC DAILY [facility] Last Admin: 07/08/18 09:39 Dose: 30 mg Sodium Chloride (Sodium Chloride 0.9%) 1,000 mls @ 100 mls/hr IV .Q10H [facility] Last Admin: 07/08/18 09:40 Dose: 100 mls/hr Ceftriaxone Sodium 1 gm/ (Sodium Chloride) 100 mls @ 100 mls/hr IVPB DAILY [facility] PRN Reason: Protocol Last Admin: 07/08/18 09:39 Dose: 100 mls/hr Metoclopramide HCl (Reglan) 5 mg IVP Q6H [facility] Ondansetron HCl (Zofran Inj) 4 mg IVP Q6H PRN PRN Reason: Nausea/Vomiting Pantoprazole Sodium (Protonix Inj) 40 mg IVP DAILY [facility] Last Admin: 07/08/18 09:39 Dose: 40 mg Polyethylene Glycol/Electrolytes (Golytely) 4,000 ml PO ONCE ONE Stop: 07/08/18 14:01 Saccharomyces Boulardii (Florastor) 250 mg PO BID [facility] Last Admin: 07/08/18 09:39 Dose: 250 mg - Labs Labs: 07/08/18 08:34 07/08/18 08:34 - Constitutional Appears: Well, No Acute Distress - Head Exam Head Exam: ATRAUMATIC, NORMAL INSPECTION, NORMOCEPHALIC - Eye Exam Eye Exam: EOMI, Normal appearance - ENT Exam ENT Exam: Mucous Membranes Moist, Normal Exam - Neck Exam Neck Exam: Full ROM, Normal Inspection - Respiratory Exam Respiratory Exam: Clear to Ausculation Bilateral, NORMAL BREATHING PATTERN - Cardiovascular Exam Cardiovascular Exam: REGULAR RHYTHM, +S1, +S2 - GI/Abdominal Exam GI & Abdominal Exam: Tenderness (mild, epigastric), Normal Bowel Sounds. absent : Guarding - Rectal Exam Rectal Exam: Deferred - Extremities Exam Extremities Exam: Full ROM, Normal Inspection - Back Exam Back Exam: NORMAL INSPECTION. absent: tenderness - Neurological Exam Neurological Exam: Alert, Awake, Oriented x3 - Psychiatric Exam Psychiatric exam: Anxious - Skin Skin Exam: Dry, Intact, Normal Color, Warm Assessment and Plan - Assessment and Plan (Free Text) Assessment: (1) Sepsis- 2/2 UTI 07/08: Not in any acute distress. Continuing IV Rocephin. Pending blood and urine cultures. BP and HR stable. Not having elevated temperatures at this time. On admission: Tmax: 102.8 HR: 110 UA: (3+ LE) and Urine WBC: 3 Chest X-ray (07/07/18): Potential limited interstitial pneumonitis of the bilateral bases though this is not definite. Pattern may be a function of crowding of bronchovascular markings do through diminished inspiratory volume. No alveolitis, pleural effusion or pneumothorax bilaterally. Stable prominent cardiac silhouette. Management: NS @ 100mls/hr Tylenol 650mg PO Q6H PRN (Fever> 100.6) Rocephin 1gm IV daily Florastor 250mg PO BID F/u urine culture and sensitivity, blood culture Status: Acute (2) UTI (urinary tract infection) 07/08: Continue with Rocephin. Pending cultures. Will repeat UA and urine culture tomorrow. Assessment and Plan: On admission: Tmax: 102.8 HR: 110 UA: ( 3+ LE) and Urine WBC: 3 Imaging: Abdomen/Pelvis CT: F/u official report Management: NS @ 100mls/hr Tylenol 650mg PO Q6H PRN (Fever> 100.6) Rocephin 1gm IV daily Florastor 250mg PO BID F/u urine culture and sensitivity Status: Acute (3) Abdominal pain 07/08: Patient is s/p EGD by GI showing a large gastric polyp. Pending colonoscopy for tomorrow. On bowel prep tonight. Assessment and Plan: Resolving Imaging: Abdomen US (07/07/18): No acute findings related to/accounting for the clinical presentation. Additional benign and/or incidental findings described above. Measures 17.8 cm in length. Hepatopedal blood flow. Fatty infiltration manifest ultrasonographically as increased echogenicity of the liver parenchyma. No mass. No intrahepatic bile duct dilatation. Abdomen/Pelvis CT: F/u official report Status: Acute (4) History of gastritis 07/08: S/p EGD, pending biopsies. EGD showed gastric polyp. Assessment and Plan: Protonix 40mg IV daily Status: Acute (5) Vomiting Assessment and Plan: Zofran 4mg IV Q6H PRN Status: Acute (6) History of osteoporosis Assessment and Plan: Continue home medications: Alendronate 150mg PO daily (Held, due to possible GI side effects with patient's present presentation of epigastric pain) Calcium Carbonate 1 tab PO BID (7) History of hypertension- stable Assessment and Plan: Continue home medication: Atenolol 50mg PO QD (8) Prophylactic measure Assessment and Plan: GI: Protonix 40mg IV daily DVT: Score of 2 (Age < 61 and BMI > 30): SCDs and Lovenox 40mg SC daily <Antonio Batista - Last Filed: 07/08/18 16:55> Objective - Vital Signs/Intake and Output Vital Signs (last 24 hours): Temp Pulse Resp BP Pulse Ox 98.3 F 81 20 138/82 95 07/08/18 15:14 07/08/18 15:14 07/08/18 15:14 07/08/18 15:14 07/08/18 15:14 Intake and Output: 07/08/18 07/08/18 06:59 18:59 Intake Total 900 200 Balance 900 200 - Medications Medications: Current Medications Acetaminophen (Tylenol 325mg Tab) 650 mg PO Q6 PRN PRN Reason: Fever >100.4 F Alprazolam (Xanax) 0.5 mg PO BID PRN PRN Reason: Anxiety Atenolol (Tenormin) 50 mg PO DAILY [facility] Last Admin: 07/08/18 09:39 Dose: 50 mg Bisacodyl (Dulcolax) 10 mg PO ONCE ONE Stop: 07/08/18 17:01 Calcium/Vitamin D (Oscal-D 250 Mg-125 Units Tab) 1 tab PO BID [facility] Last Admin: 07/08/18 09:39 Dose: 1 tab Enoxaparin Sodium (Lovenox) 30 mg SC DAILY [facility] Last Admin: 07/08/18 09:39 Dose: 30 mg Sodium Chloride (Sodium Chloride 0.9%) 1,000 mls @ 100 mls/hr IV .Q10H [facility] Last Admin: 07/08/18 09:40 Dose: 100 mls/hr Ceftriaxone Sodium 1 gm/ (Sodium Chloride) 100 mls @ 100 mls/hr IVPB DAILY [facility] PRN Reason: Protocol Last Admin: 07/08/18 09:39 Dose: 100 mls/hr Metoclopramide HCl (Reglan) 5 mg IVP Q6H [facility] Last Admin: 07/08/18 14:18 Dose: 5 mg Ondansetron HCl (Zofran Inj) 4 mg IVP Q6H PRN PRN Reason: Nausea/Vomiting Pantoprazole Sodium (Protonix Inj) 40 mg IVP DAILY [facility] Last Admin: 07/08/18 09:39 Dose: 40 mg Saccharomyces Boulardii (Florastor) 250 mg PO BID [facility] Last Admin: 07/08/18 09:39 Dose: 250 mg - Labs Labs: 07/08/18 08:34 07/08/18 08:34 Attending/Attestation - Attestation I have personally seen and examined this patient.: Yes I have fully participated in the care of the patient.: Yes I have reviewed all pertinent clinical information, including history, physical exam and plan: Yes Notes (Text): 07/08/18 16:53 Medical attending: Patient was seen and examined by me. Agree with the above note by the resident The patient was not in any acute distress when I came and saw her. She had a CT scan last night which was stable. GI later in the day did an EGD which was suggestive of a gastric polyp and area planning colonscopy tommorrow. Also continue with the IV rocpehin for the time being until further urine studies return Antonio Batista 07/08/18 16:54
--- NOTE | 2018-07-08 13:24 | CP.PCM.CON ---
History of Present Illness - History of Present Illness History of Present Illness: PGY-4 GI Fellow Consult Note Pt is a 62 yo Hisp Female with Gastritis, HTN, Depression, OA, ADRIANA presenting with abdominal pain. She states over the last few days has had some generalized abdominal pain, worse in epigastrum than lower abd, associated with N/V. Emesis is nb/nb emesis. She also reported some polyruria and fever. She reports having a colonoscopy about 6-7 years ago but does not recall results; she reports it was done here but there are no records in [place]. States that she normally has yellowish stool nearly every day but states might be going more frequently. She also reports that she has been on antibiotics in the last few months for a UTI. Denies any hematemesis, melena, hematochezia, change in diet or sick contacts. 12 point ROS negative other than stated above PMHx: hypertension, depression, gastritis, arthritis, osteoporosis, sleep apnea (on Bipap at home) PSHx: X1, Hysterectomy and Fibroid removal Medications: Atenolol 50mg PO daily, Alendronate 150mg PO daily, Ca2+ Carbonate 150mg PO QD, Protonix 40mg PO daily FHx: Father ( alive, cardiomyopathy), Paternal Uncle (Cardiomyopathy), Mother ( alive, lymphoma, DM and Osteoporosis) SocHx: Denied etoh, tob, ill Allergies: NKDA Past Patient History - Past Medical History & Family History Past Medical History?: Yes - Past Social History Smoking Status: Never Smoked - CARDIAC Hx Hypertension: Yes - PULMONARY Hx Sleep Apnea: Yes (SCHEDULED FOR SLEEP STUDY) - NEUROLOGICAL Hx Neurological Disorder: No - HEENT Hx HEENT Problems: Yes Hx Glaucoma: Yes - RENAL Hx Chronic Kidney Disease: Yes - ENDOCRINE/METABOLIC Hx Endocrine Disorders: No - HEMATOLOGICAL/ONCOLOGICAL Hx Blood Disorders: No - INTEGUMENTARY Hx Dermatological Problems: No - MUSCULOSKELETAL/RHEUMATOLOGICAL Hx Osteoporosis: Yes - GASTROINTESTINAL Hx Gastrointestinal Disorders: Yes Hx Gastroesophageal Reflux: Yes - GENITOURINARY/GYNECOLOGICAL Hx Genitourinary Disorders: No - PSYCHIATRIC Hx Anxiety: Yes Hx Depression: Yes Hx Substance Use: No - SURGICAL HISTORY Hx Surgeries: Yes Hx Eye Surgery: Yes Hx Hysterectomy: Yes - ANESTHESIA Hx Anesthesia: Yes Hx Anesthesia Reactions: No Hx Malignant Hyperthermia: No Meds Allergies/Adverse Reactions: Allergies Allergy/AdvReac Type Severity Reaction Status Date / Time No Known Allergies Allergy Verified 07/07/18 15:32 - Medications Medications: Current Medications Acetaminophen (Tylenol 325mg Tab) 650 mg PO Q6 PRN PRN Reason: Fever >100.4 F Atenolol (Tenormin) 50 mg PO DAILY [facility] Last Admin: 07/08/18 09:39 Dose: 50 mg Bisacodyl (Dulcolax) 10 mg PO ONCE ONE Stop: 07/08/18 17:01 Calcium/Vitamin D (Oscal-D 250 Mg-125 Units Tab) 1 tab PO BID [facility] Last Admin: 07/08/18 09:39 Dose: 1 tab Enoxaparin Sodium (Lovenox) 30 mg SC DAILY [facility] Last Admin: 07/08/18 09:39 Dose: 30 mg Sodium Chloride (Sodium Chloride 0.9%) 1,000 mls @ 100 mls/hr IV .Q10H [facility] Last Admin: 07/08/18 09:40 Dose: 100 mls/hr Ceftriaxone Sodium 1 gm/ (Sodium Chloride) 100 mls @ 100 mls/hr IVPB DAILY [facility] PRN Reason: Protocol Last Admin: 07/08/18 09:39 Dose: 100 mls/hr Metoclopramide HCl (Reglan) 5 mg IVP Q6H [facility] Ondansetron HCl (Zofran Inj) 4 mg IVP Q6H PRN PRN Reason: Nausea/Vomiting Pantoprazole Sodium (Protonix Inj) 40 mg IVP DAILY [facility] Last Admin: 07/08/18 09:39 Dose: 40 mg Polyethylene Glycol/Electrolytes (Golytely) 4,000 ml PO ONCE ONE Stop: 07/08/18 14:01 Saccharomyces Boulardii (Florastor) 250 mg PO BID [facility] Last Admin: 07/08/18 09:39 Dose: 250 mg Physical Exam - Constitutional Appears: Well, Non-toxic, No Acute Distress - Head Exam Head Exam: ATRAUMATIC, NORMAL INSPECTION - Eye Exam Eye Exam: Conjunctival injection, EOMI. absent: Scleral icterus - ENT Exam ENT Exam: Mucous Membranes Moist, Normal External Ear Exam. absent: Mucous Membranes Dry - Neck Exam Neck exam: Positive for: Normal Inspection Additional comments: large neck - Respiratory Exam Respiratory Exam: Clear to Auscultation Bilateral, NORMAL BREATHING PATTERN - Cardiovascular Exam Cardiovascular Exam: REGULAR RHYTHM. absent: Systolic Murmur - GI/Abdominal Exam GI & Abdominal Exam: Normal Bowel Sounds, Soft, Tenderness (mild, in epigastrum w/o guarding). absent: Bruit, Diminished Bowel Sounds, Distended, Firm, Guarding, Hernia, Hyperactive Bowel Sounds, Hypoactive Bowel Sounds, Mass, Organomegaly, Pulsatile Mass, Rebound, Rigid - Rectal Exam Rectal Exam: Deferred - Extremities Exam Extremities exam: Positive for: normal inspection, pedal pulses present - Neurological Exam Neurological exam: Alert, CN II-XII Intact, Oriented x3 - Psychiatric Exam Psychiatric exam: Anxious, Normal Affect - Skin Skin Exam: Normal Color, Warm Results - Vital Signs Recent Vital Signs: Last Vital Signs Temp 98.0 F 07/08/18 11:54 Pulse 89 07/08/18 11:54 Resp 18 07/08/18 11:54 BP 150/91 H 07/08/18 11:54 Pulse Ox 96 07/08/18 11:54 - Labs Result Diagrams: 07/08/18 08:34 07/08/18 08:34 Labs: Laboratory Results - last 24 hr 07/07/18 07/07/18 07/07/18 16:03 16:03 16:03 WBC 9.1 RBC 4.46 Hgb 12.6 Hct 37.5 MCV 84.1 MCH 28.2 MCHC 33.5 RDW 14.0 Plt Count 255 MPV 7.2 Neut % (Auto) 70.8 Lymph % (Auto) 18.3 L [place] % (Auto) 10.2 H Eos % (Auto) 0.3 Baso % (Auto) 0.4 Neut # (Auto) 6.4 Lymph # (Auto) 1.7 [place] # (Auto) 0.9 H Eos # (Auto) 0.0 Baso # (Auto) 0.0 Sodium 141 Potassium 4.0 Chloride 105 Carbon Dioxide 22 Anion Gap 18 BUN 10 Creatinine 0.6 L Est GFR ( Amer) > 60 Est GFR (Non-Af Amer) > 60 Random Glucose 119 H Lactic Acid 2.2 H Calcium 9.2 Total Bilirubin 0.7 AST 24 ALT 35 Alkaline Phosphatase 61 Total Protein 7.5 Albumin 4.2 Globulin 3.3 Albumin/Globulin Ratio 1.3 Lipase 81 Urine Color Urine Clarity Urine pH Ur Specific [place] Urine Protein Urine Glucose (UA) Urine Ketones Urine Blood Urine Nitrate Urine Bilirubin Urine Urobilinogen Ur Leukocyte Esterase Urine WBC (Auto) Urine RBC (Auto) Ur Squamous Epith Cells Urine Bacteria C. difficile Ag & Toxin 07/07/18 07/07/18 07/08/18 16:04 22:00 05:20 WBC RBC Hgb Hct MCV MCH MCHC RDW Plt Count MPV Neut % (Auto) Lymph % (Auto) [place] % (Auto) Eos % (Auto) Baso % (Auto) Neut # (Auto) Lymph # (Auto) [place] # (Auto) Eos # (Auto) Baso # (Auto) Sodium Potassium Chloride Carbon Dioxide Anion Gap BUN Creatinine Est GFR ( Amer) Est GFR (Non-Af Amer) Random Glucose Lactic Acid Calcium Total Bilirubin AST ALT Alkaline Phosphatase Total Protein Albumin Globulin Albumin/Globulin Ratio Lipase Urine Color Yellow Yellow Urine Clarity Hazy Clear Urine pH 5.0 5.0 Ur Specific [place] 1.015 > 1.060 H Urine Protein Negative Negative Urine Glucose (UA) Normal Normal Urine Ketones Negative Negative Urine Blood 1+ H 1+ H Urine Nitrate Negative Negative Urine Bilirubin Negative Negative Urine Urobilinogen Normal Normal Ur Leukocyte Esterase 3+ H 3+ H Urine WBC (Auto) 22 H 32 H Urine RBC (Auto) 4 H 13 H Ur Squamous Epith Cells 16 H 5 Urine Bacteria Rare C. difficile Ag & Toxin Negative 07/08/18 07/08/18 07/08/18 08:34 08:34 11:24 WBC 4.0 L D RBC 4.20 Hgb 12.3 Hct 35.3 MCV 84.1 MCH 29.3 MCHC 34.9 RDW 14.3 Plt Count 236 MPV 7.2 Neut % (Auto) 57.6 Lymph % (Auto) 32.2 [place] % (Auto) 8.8 Eos % (Auto) 0.7 Baso % (Auto) 0.7 Neut # (Auto) 2.3 Lymph # (Auto) 1.3 [place] # (Auto) 0.3 Eos # (Auto) 0.0 Baso # (Auto) 0.0 Sodium 142 Potassium 4.0 Chloride 108 H Carbon Dioxide 26 Anion Gap 13 BUN 6 L Creatinine 0.6 L Est GFR ( Amer) > 60 Est GFR (Non-Af Amer) > 60 Random Glucose 134 H Lactic Acid 1.0 Calcium 8.8 Total Bilirubin 0.6 AST 21 ALT 28 Alkaline Phosphatase 60 Total Protein 7.0 Albumin 4.1 Globulin 2.9 Albumin/Globulin Ratio 1.4 Lipase Urine Color Urine Clarity Urine pH Ur Specific [place] Urine Protein Urine Glucose (UA) Urine Ketones Urine Blood Urine Nitrate Urine Bilirubin Urine Urobilinogen Ur Leukocyte Esterase Urine WBC (Auto) Urine RBC (Auto) Ur Squamous Epith Cells Urine Bacteria C. difficile Ag & Toxin Assessment & Plan - Assessment and Plan (Free Text) Assessment: 62 yo Hisp Female presenting with Abd pain. # Abd Pain: Perhaps related to patients gastritis as some seen on EGD today. Also had large gastric polyp (nearly 2 cm, see EGD report) which could contribute though less likely. Symptoms also could be related to UTI. Of note , pt did become hypoxic shortly after administration of anesthesia and procedure commencement requiring intubation for oxygenation support. Fortunately, pt was only intubated for few minutes for procedure completion and was awake, alert, conversive post procedure. Plan: - Plan for Colonoscopy tomorrow, prep tonight, NPO at [place] (other than prep and meds) - F/u stomach biopsies - Cont PPI for now - Trt of UTI per primary Pt seen and examined with Dr. Loya. See his note for further recs/changes.
[2018-07-08] MEDS ORDERED: Peg-Electrolyte Oral Soln 4L (Golytely) PO ONE (14:00)
[2018-07-08] MEDS ORDERED: Bisacodyl 5mg EC Tab PO ONE (17:00)
[2018-07-09 07:38] LABS: ALB/GLOB RATIO 1.1 (1.0-2.1); ALBUMIN 3.7 g/dL (3.5-5.0); ALT/SGPT 26 U/L (9-52); AST/SGOT 49 U/L (14-36); BLOOD UREA NITROGEN 5 mg/dL (7-17); CALCIUM 8.4 mg/dl (8.6-10.4); GFR AFRICAN-AMERICAN > 60; GFR NON-AFRICAN AMERICAN > 60
[2018-07-09] MEDS: Calcium-Vit D 250 mg-125 Units Tab UD PO SCH ×2 (09:20→17:37)
[2018-07-09] MEDS: Saccharomyces Boulardi 250 mg Cap PO SCH ×2 (09:20→17:36)
[2018-07-09] MEDS: Enoxaparin 30 mg Syringe SC SCH (09:23)
[2018-07-09 09:38] LABS: SQUAMOUS EPITHIAL 1 /hpf (0-5); URINE BACTERIA RARE (<OCC); URINE BILIRUBIN NEGATIVE (NEGATIVE); URINE BLOOD NEGATIVE (NEGATIVE); URINE CLARITY Clear (Clear); URINE COLOR Straw (YELLOW); URINE GLUCOSE (UA) NORMAL (Normal); URINE LEUKOCYTE ESTERASE 1+ Leu/uL (Negative); URINE PROTEIN NEGATIVE (NEGATIVE); URINE UROBILINOGEN NORMAL mg/dL (0.2-1.0)
[2018-07-09] MEDS ORDERED: Lactated Ringer's 1,000 ML IV ONE (11:21)
[2018-07-09] MEDS ORDERED: Propofol 10 mg/ml Inj (20 ML) ONE (11:31)
[2018-07-09] MEDS ORDERED: Midazolam 2 MG/2 ML VIAL ONE (11:32)
[2018-07-09 11:42] LABS: BASO % 0.5 % (0.0-2.0); EOS % 0.5 % (0.0-4.0); LYMPH # 1.5 K/uL (1.0-4.3); LYMPH % 30.1 % (20.0-40.0); MEAN CELL VOLUME 84.6 fL (81.0-99.0); MEAN CORPUSCULAR HGB CONC 34.2 g/dL (33.0-37.0); MEAN PLATELET VOLUME 7.5 fL (7.2-11.7); MONO # 0.4 K/uL (0.0-0.8); MONO % 7.2 % (0.0-10.0); NEUT # 3.1 K/uL (1.8-7.0); NEUT % 61.7 % (50.0-75.0); NRBC % 0.4 % (0.0-2.0); RBC 4.15 Mil/uL (3.80-5.20)
--- NOTE | 2018-07-09 12:14 | CP.PCM.PN ---
<Bouchra Haywood - Last Filed: 07/09/18 16:22> Subjective - Date & Time of Evaluation Date of Evaluation: 07/09/18 Time of Evaluation: 09:30 - Subjective Subjective: PGY-1 Bouchra Haywood D.O. Medicine service note for Dr. Antonio Batista's service : Patient seen and examined this morning. She was not in any acute distress. She still complains of some mild epigastric and L-sided abdominal tenderness. She is NPO and completed bowel prep for colonoscopy later today. Patient continues to be very anxious about potential GI pathologies. Patient was repeatedly reassured that nothing is emergently problematic thus far. Gastric polyp was biopsied yesterday and pathology has not yet resulted. Denies N/V. Endorses diarrhea, but likely 2/2 NPO and bowel prep at this time. Denies fevers at this time. Denies urinary symptoms. Objective - Vital Signs/Intake and Output Vital Signs (last 24 hours): Temp Pulse Resp BP Pulse Ox 98.5 F 83 18 143/85 94 L 07/09/18 07:40 07/09/18 07:40 07/09/18 07:40 07/09/18 07:40 07/09/18 07:40 - Medications Medications: Current Medications Acetaminophen (Tylenol 325mg Tab) 650 mg PO Q6 PRN PRN Reason: Fever >100.4 F Last Admin: 07/08/18 20:33 Dose: 650 mg Alprazolam (Xanax) 0.5 mg PO BID PRN PRN Reason: Anxiety Last Admin: 07/08/18 22:01 Dose: 0.5 mg Atenolol (Tenormin) 50 mg PO DAILY [facility] Last Admin: 07/09/18 09:20 Dose: Not Given Calcium/Vitamin D (Oscal-D 250 Mg-125 Units Tab) 1 tab PO BID [facility] Last Admin: 07/09/18 09:20 Dose: Not Given Enoxaparin Sodium (Lovenox) 30 mg SC DAILY [facility] Last Admin: 07/09/18 09:23 Dose: Not Given Sodium Chloride (Sodium Chloride 0.9%) 1,000 mls @ 100 mls/hr IV .Q10H [facility] Last Admin: 07/08/18 09:40 Dose: 100 mls/hr Ceftriaxone Sodium 1 gm/ (Sodium Chloride) 100 mls @ 100 mls/hr IVPB DAILY [facility] PRN Reason: Protocol Last Admin: 07/09/18 09:15 Dose: 100 mls/hr Metoclopramide HCl (Reglan) 5 mg IVP Q6H [facility] Last Admin: 07/09/18 06:22 Dose: 5 mg Ondansetron HCl (Zofran Inj) 4 mg IVP Q6H PRN PRN Reason: Nausea/Vomiting Pantoprazole Sodium (Protonix Inj) 40 mg IVP DAILY [facility] Last Admin: 07/09/18 09:18 Dose: 40 mg Saccharomyces Boulardii (Florastor) 250 mg PO BID [facility] Last Admin: 07/09/18 09:20 Dose: Not Given - Labs Labs: 07/09/18 11:33 07/09/18 06:21 - Constitutional Appears: Well, No Acute Distress - Head Exam Head Exam: ATRAUMATIC, NORMAL INSPECTION, NORMOCEPHALIC - Eye Exam Eye Exam: EOMI, Normal appearance - ENT Exam ENT Exam: Mucous Membranes Moist, Normal Exam - Neck Exam Neck Exam: Normal Inspection. absent: Lymphadenopathy - Respiratory Exam Respiratory Exam: Clear to Ausculation Bilateral, NORMAL BREATHING PATTERN. absent: Rhonchi, Wheezes - Cardiovascular Exam Cardiovascular Exam: REGULAR RHYTHM. absent: Murmur - GI/Abdominal Exam GI & Abdominal Exam: Tenderness (L-sided, mild), Normal Bowel Sounds. absent: Mass, Rebound - Rectal Exam Rectal Exam: Deferred - Extremities Exam Extremities Exam: Normal Inspection - Back Exam Back Exam: NORMAL INSPECTION - Neurological Exam Neurological Exam: Alert, Awake, CN II-XII Intact, Oriented x3 - Psychiatric Exam Psychiatric exam: Anxious - Skin Skin Exam: Dry, Intact, Normal Color, Warm Assessment and Plan - Assessment and Plan (Free Text) Assessment: Patient is a 62 yo female with past medical history of hypertension, depression, gastritis, arthritis, osteoporosis, sleep apnea on Bipap who presented with epigastric/lower abdominal pain with associated symptoms of fever , nausea, non-bilious vomiting, diarrhea, and urinary frequency x1-2 days. EGD found gastric polyp. Colonoscopy revealed colitis and spastic colon. Plan: Sepsis, acute, resolved- 2/2 gastritis/colitis - On admission: temp 102.8, HR 110 - Most recent fever 101.2 on 07/08 @ 8:30 PM - Repeat clean catch UA negative - Tylenol 650mg PO q6hrs PRN - Discontinue Rocephin 1gm IV- no UTI - Start Cipro 400 mg IV BID (07/09) - Start Flagyl 500 mg IV q8hrs (07/09) - Urine Cx- contaminants - Blood Cx negative >24 hrs - F/u stool Cx - CT A/P 07/07: no acute findings Gastritis and colitis, acute - EGD 07/08: Bx gastric polyp negative for H. pylori - Colonoscopy 07/09: colitis, spastic colon - Reglan 5 mg IV q6hrs - Start Cipro 400 mg IV BID (07/09) - Start Flagyl 500 mg IV q8hrs (07/09) Vomiting, acute, resolved - Zofran 4mg IV Q6H PRN - NS @ 100 mL/hr Osteoporosis, chronic, stable - Continue home Calcium Carbonate 1 tab PO BID - Hold Alendronate 150mg PO daily due to possible GI side effects HTN, chronic, stable - Continue home Atenolol 50mg PO daily IVF: NS @ 100 GI ppx: Protonix 40mg IV daily VTE ppx: SCDs and Lovenox 40mg SC daily Diet: heart healthy Code status: full code <Antonio Batista H - Last Filed: 07/09/18 17:38> Objective - Vital Signs/Intake and Output Vital Signs (last 24 hours): Temp Pulse Resp BP Pulse Ox 99 F 86 20 145/89 95 07/09/18 15:40 07/09/18 15:40 07/09/18 15:40 07/09/18 15:40 07/09/18 15:40 - Medications Medications: Current Medications Acetaminophen (Tylenol 325mg Tab) 650 mg PO Q6 PRN PRN Reason: Fever >100.4 F Last Admin: 07/08/18 20:33 Dose: 650 mg Alprazolam (Xanax) 0.5 mg PO BID PRN PRN Reason: Anxiety Last Admin: 07/08/18 22:01 Dose: 0.5 mg Atenolol (Tenormin) 50 mg PO DAILY [facility] Last Admin: 07/09/18 09:20 Dose: Not Given Calcium/Vitamin D (Oscal-D 250 Mg-125 Units Tab) 1 tab PO BID [facility] Last Admin: 08/09/18 09:20 Dose: Not Given Enoxaparin Sodium (Lovenox) 30 mg SC DAILY [facility] Last Admin: 07/09/18 09:23 Dose: Not Given Sodium Chloride (Sodium Chloride 0.9%) 1,000 mls @ 100 mls/hr IV .Q10H [facility] Last Admin: 07/09/18 14:25 Dose: Not Given Ciprofloxacin (Cipro 400mg/200ml Dsw) 400 mg in 200 mls @ 133 mls/hr IVPB Q12H [facility] PRN Reason: Protocol Metronidazole (Flagyl) 500 mg in 100 mls @ 100 mls/hr IVPB Q8H [facility] PRN Reason: Protocol Metoclopramide HCl (Reglan) 5 mg IVP Q6H [facility] Last Admin: 07/09/18 13:27 Dose: 5 mg Ondansetron HCl (Zofran Inj) 4 mg IVP Q6H PRN PRN Reason: Nausea/Vomiting Pantoprazole Sodium (Protonix Inj) 40 mg IVP DAILY [facility] Last Admin: 07/09/18 09:18 Dose: 40 mg Saccharomyces Boulardii (Florastor) 250 mg PO BID [facility] Last Admin: 07/09/18 09:20 Dose: Not Given - Labs Labs: 07/09/18 11:33 07/09/18 06:21 Attending/Attestation - Attestation I have personally seen and examined this patient.: Yes I have fully participated in the care of the patient.: Yes I have reviewed all pertinent clinical information, including history, physical exam and plan: Yes Notes (Text): 07/09/18 17:36 Medical attending: Patient was seen and evaluated by me with the medical laboratory technicians before the patient went to colonscopy today. She was feeling well this morning with minimal abdominal discomfort. The patient later had colonscopy and it suggested she probabbly has colitis as well as a spastic colon. For the time being will place on short course of Cipro and Flagyll continue to see how she is doing. Her diet was advanced to heart healthy after procedure today Antonio Batista
[2018-07-09] MEDS: Sodium Chloride 0.9% 1,000 ML IV SCH (14:25)
[2018-07-09] MEDS: Ciprofloxacin 400mg/200ml D5W 400 MG/200 ML BAG IVPB SCH (17:35)
[2018-07-09] MEDS: metroNIDAZOLE IV 500 mg/100 ml 500 MG/100 ML BAG IVPB SCH (21:08)
[2018-07-10] MEDS: metroNIDAZOLE IV 500 mg/100 ml 500 MG/100 ML BAG IVPB SCH ×3 (05:26→21:40)
[2018-07-10] MEDS: Ciprofloxacin 400mg/200ml D5W 400 MG/200 ML BAG IVPB SCH ×2 (06:30→17:42)
--- NOTE | 2018-07-10 07:16 | CP.PCM.PN ---
<Bouchra Haywood - Last Filed: 07/10/18 18:00> Subjective - Date & Time of Evaluation Date of Evaluation: 07/10/18 Time of Evaluation: 10:20 - Subjective Subjective: PGY-1 Bouchra Haywood D.O. Medicine service note for Dr. Antonio Batista's service : Patient seen and examined this morning. She was not in any acute distress. With the help of a personal fitness trainer, we explained to her that the biopsy of the gastric poly was negative, but we are consulting general surgery to remove the polyp due to its size (2 cm). Patient reports mild epigastric pain. She also states she feels gassy. She says her stools are loose but more formed than before. She states she occasionally feels feverish- patient has been noted to have low grade fevers rectally that resolve with Tylenol (patient states she does not like the oral thermometer). She denies nausea and vomiting. Objective - Vital Signs/Intake and Output Vital Signs (last 24 hours): Temp Pulse Resp BP Pulse Ox 99 F 87 20 148/90 96 07/10/18 04:00 07/10/18 04:00 07/10/18 04:00 07/10/18 04:00 07/10/18 04:00 - Medications Medications: Current Medications Acetaminophen (Tylenol 325mg Tab) 650 mg PO Q6 PRN PRN Reason: Fever >100.4 F Last Admin: 07/09/18 17:36 Dose: 650 mg Alprazolam (Xanax) 0.5 mg PO BID PRN PRN Reason: Anxiety Last Admin: 07/09/18 21:08 Dose: 0.5 mg Atenolol (Tenormin) 50 mg PO DAILY [facility] Last Admin: 07/09/18 09:20 Dose: Not Given Calcium/Vitamin D (Oscal-D 250 Mg-125 Units Tab) 1 tab PO BID [facility] Last Admin: 07/09/18 17:37 Dose: 1 tab Enoxaparin Sodium (Lovenox) 30 mg SC DAILY [facility] Last Admin: 07/09/18 09:23 Dose: Not Given Sodium Chloride (Sodium Chloride 0.9%) 1,000 mls @ 100 mls/hr IV .Q10H [facility] Last Admin: 07/09/18 14:25 Dose: Not Given Ciprofloxacin (Cipro 400mg/200ml Dsw) 400 mg in 200 mls @ 133 mls/hr IVPB Q12H [facility] PRN Reason: Protocol Last Admin: 07/10/18 06:30 Dose: 133 mls/hr Metronidazole (Flagyl) 500 mg in 100 mls @ 100 mls/hr IVPB Q8H [facility] PRN Reason: Protocol Last Admin: 07/10/18 05:26 Dose: 100 mls/hr Metoclopramide HCl (Reglan) 5 mg IVP Q6H [facility] Last Admin: 07/10/18 06:00 Dose: 5 mg Ondansetron HCl (Zofran Inj) 4 mg IVP Q6H PRN PRN Reason: Nausea/Vomiting Pantoprazole Sodium (Protonix Inj) 40 mg IVP DAILY [facility] Last Admin: 07/09/18 09:18 Dose: 40 mg Saccharomyces Boulardii (Florastor) 250 mg PO BID [facility] Last Admin: 07/09/18 17:36 Dose: 250 mg - Labs Labs: 07/09/18 11:33 07/09/18 06:21 - Constitutional Appears: Well, No Acute Distress - Head Exam Head Exam: ATRAUMATIC, NORMAL INSPECTION, NORMOCEPHALIC - Eye Exam Eye Exam: EOMI, Normal appearance - ENT Exam ENT Exam: Mucous Membranes Moist, Normal Exam - Neck Exam Neck Exam: Normal Inspection - Respiratory Exam Respiratory Exam: Clear to Ausculation Bilateral, NORMAL BREATHING PATTERN - Cardiovascular Exam Cardiovascular Exam: REGULAR RHYTHM, +S1, +S2 - GI/Abdominal Exam GI & Abdominal Exam: Soft, Normal Bowel Sounds - Rectal Exam Rectal Exam: Deferred - Extremities Exam Extremities Exam: Full ROM, Normal Inspection - Back Exam Back Exam: NORMAL INSPECTION - Neurological Exam Neurological Exam: Alert, Awake, Oriented x3 - Psychiatric Exam Psychiatric exam: Anxious - Skin Skin Exam: Dry, Intact, Normal Color, Warm Assessment and Plan - Assessment and Plan (Free Text) Assessment: Patient is a 62 yo female with past medical history of hypertension, depression, gastritis, arthritis, osteoporosis, sleep apnea on Bipap who presented with epigastric/lower abdominal pain with associated symptoms of fever , nausea, non-bilious vomiting, diarrhea, and urinary frequency x1-2 days. EGD found gastric polyp. Colonoscopy revealed colitis and spastic colon. Plan: Gastric polyp- 2 cm - Biopsied during EGD- negative, no H. pylori - Gen surg consulted (Dr. Velazquez)- polypectomy scheduled for Friday 07/13 Gastritis and colitis, acute - EGD 07/08: Bx gastric polyp negative for H. pylori - Colonoscopy 07/09: colitis, spastic colon - Reglan 5 mg IV q6hrs - Simethicone 80 mg PO QID - Start Cipro 400 mg IV BID (07/09) - Start Flagyl 500 mg IV q8hrs (07/09) Sepsis, acute, resolved- 2/2 gastritis/colitis - On admission: temp 102.8, HR 110 - Most recent fever 101.2 on 07/08 @ 8:30 PM - Repeat clean catch UA negative - Tylenol 650mg PO q6hrs PRN - Discontinue Rocephin 1gm IV- no UTI - Start Cipro 400 mg IV BID (07/09) - Start Flagyl 500 mg IV q8hrs (07/09) - Urine Cx- contaminants - Blood Cx negative >48 hrs - Stool Cx negative - CT A/P 07/07: no acute findings Vomiting, acute, resolved - Zofran 4mg IV Q6H PRN - NS @ 100 mL/hr Osteoporosis, chronic, stable - Continue home Calcium Carbonate 1 tab PO BID - Hold Alendronate 150mg PO daily due to possible GI side effects HTN, chronic, stable - Continue home Atenolol 50mg PO daily Anxiety - Trintellix 10 mg PO qhs - Xanax 0.5 mg BID prn IVF: NS @ 100 GI ppx: Protonix 40mg IV daily, Florastor 250 mg PO BID VTE ppx: SCDs and Lovenox 40mg SC daily Diet: heart healthy Code status: full code <BatistaAntonio ovalle H - Last Filed: 07/10/18 19:35> Objective - Vital Signs/Intake and Output Vital Signs (last 24 hours): Temp Pulse Resp BP Pulse Ox 99.4 F 75 20 172/99 H 96 07/10/18 15:00 07/10/18 15:00 07/10/18 15:00 07/10/18 15:00 07/10/18 15:00 - Medications Medications: Current Medications Acetaminophen (Tylenol 325mg Tab) 650 mg PO Q6 PRN PRN Reason: Fever >100.4 F Last Admin: 07/10/18 11:32 Dose: 650 mg Alprazolam (Xanax) 0.5 mg PO BID PRN PRN Reason: Anxiety Last Admin: 07/09/18 21:08 Dose: 0.5 mg Atenolol (Tenormin) 50 mg PO DAILY [facility] Last Admin: 07/10/18 09:18 Dose: 50 mg Calcium/Vitamin D (Oscal-D 250 Mg-125 Units Tab) 1 tab PO BID [facility] Last Admin: 07/10/18 17:43 Dose: 1 tab Enoxaparin Sodium (Lovenox) 30 mg SC DAILY [facility] Last Admin: 07/10/18 09:21 Dose: 30 mg Home Med (Patient's Own Medication) 1 tab PO Q24H [facility] Last Admin: 07/10/18 17:42 Dose: 1 tab Sodium Chloride (Sodium Chloride 0.9%) 1,000 mls @ 100 mls/hr IV .Q10H [facility] Last Admin: 07/10/18 11:26 Dose: Not Given Ciprofloxacin (Cipro 400mg/200ml Dsw) 400 mg in 200 mls @ 133 mls/hr IVPB Q12H [facility] PRN Reason: Protocol Last Admin: 07/10/18 17:42 Dose: 133 mls/hr Metronidazole (Flagyl) 500 mg in 100 mls @ 100 mls/hr IVPB Q8H [facility] PRN Reason: Protocol Last Admin: 07/10/18 13:56 Dose: 100 mls/hr Metoclopramide HCl (Reglan) 5 mg IVP Q6H [facility] Last Admin: 07/10/18 17:46 Dose: 5 mg Ondansetron HCl (Zofran Inj) 4 mg IVP Q6H PRN PRN Reason: Nausea/Vomiting Pantoprazole Sodium (Protonix Inj) 40 mg IVP DAILY [facility] Last Admin: 07/10/18 09:21 Dose: 40 mg Saccharomyces Boulardii (Florastor) 250 mg PO BID [facility] Last Admin: 07/10/18 17:43 Dose: 250 mg Simethicone (Mylicon Chew Tab) 80 mg PO QID [facility] Last Admin: 07/10/18 17:43 Dose: 80 mg - Labs Labs: 07/10/18 07:41 07/10/18 07:41 Attending/Attestation - Attestation I have personally seen and examined this patient.: Yes I have fully participated in the care of the patient.: Yes I have reviewed all pertinent clinical information, including history, physical exam and plan: Yes Notes (Text): 07/10/18 19:31 Medical attending: Patient was seen and examined by me. Agree with the above note by the resident The patient was not in any acute distress. As previously mentioned daniel she has undergone a EGD as well as colonscopy. Per the advice of GI the size of the the gastric polyup is 2 cm in size and likley is contributing to her abdominal discomfort. Lab work is stable today. Hgb is 11.7 The patient was also evaluated by surgery later today as well. Hopefully there are plans for intervention this comming Friday. Antonio Batista 07/10/18 19:34 07/10/18 19:34
[2018-07-10 07:52] LABS: BASO # 0.1 K/uL (0.0-0.2); BASO % 1.7 % (0.0-2.0); EOS % 0.5 % (0.0-4.0); HEMOGLOBIN 11.7 g/dL (11.0-16.0); LYMPH # 1.2 K/uL (1.0-4.3); MEAN CELL VOLUME 84.5 fL (81.0-99.0); MEAN CORPUSCULAR HEMOGLOBIN 29.3 pg (27.0-31.0); MEAN CORPUSCULAR HGB CONC 34.7 g/dL (33.0-37.0); MEAN PLATELET VOLUME 7.1 fL (7.2-11.7); MONO # 0.4 K/uL (0.0-0.8); MONO % 7.8 % (0.0-10.0); NEUT # 3.1 K/uL (1.8-7.0); NRBC % 0.2 % (0.0-2.0); RBC 4.01 Mil/uL (3.80-5.20); RED CELL DISTRIBUTION WIDTH 14.1 % (11.5-14.5); WHITE BLOOD COUNT 4.8 K/uL (4.8-10.8)
[2018-07-10 08:07] LABS: BLOOD UREA NITROGEN 3 mg/dL (7-17); CALCIUM 8.8 mg/dl (8.6-10.4); GFR AFRICAN-AMERICAN > 60; GFR NON-AFRICAN AMERICAN > 60
[2018-07-10] MEDS: Calcium-Vit D 250 mg-125 Units Tab UD PO SCH ×2 (09:18→17:43)
[2018-07-10] MEDS: Saccharomyces Boulardi 250 mg Cap PO SCH ×2 (09:18→17:43)
[2018-07-10] MEDS: Enoxaparin 30 mg Syringe SC SCH (09:21)
[2018-07-10] MEDS: Sodium Chloride 0.9% 1,000 ML IV SCH ×2 (11:26→21:31)
--- NOTE | 2018-07-10 13:59 | CP.PCM.PN ---
Subjective - Date & Time of Evaluation Date of Evaluation: 07/10/18 Time of Evaluation: 12:35 - Subjective Subjective: PGY-4 GI Fellow Prog Note Pt lying in bed when seen this afternoon. Still with some abd pain. Anxious about gastric polyp. Reassured her that it is highly unlikely to be malignant. 5 point ROS negative other than stated above Objective - Vital Signs/Intake and Output Vital Signs (last 24 hours): Temp Pulse Resp BP Pulse Ox 100.5 F H 75 18 162/91 H 97 07/10/18 11:32 07/10/18 07:25 07/10/18 07:25 07/10/18 07:25 07/10/18 07:25 Intake and Output: 07/10/18 07/10/18 06:59 18:59 Intake Total 1000 Output Total 800 Balance 200 - Medications Medications: Current Medications Acetaminophen (Tylenol 325mg Tab) 650 mg PO Q6 PRN PRN Reason: Fever >100.4 F Last Admin: 07/10/18 11:32 Dose: 650 mg Alprazolam (Xanax) 0.5 mg PO BID PRN PRN Reason: Anxiety Last Admin: 07/09/18 21:08 Dose: 0.5 mg Atenolol (Tenormin) 50 mg PO DAILY [facility] Last Admin: 07/10/18 09:18 Dose: 50 mg Calcium/Vitamin D (Oscal-D 250 Mg-125 Units Tab) 1 tab PO BID [facility] Last Admin: 07/10/18 09:18 Dose: 1 tab Enoxaparin Sodium (Lovenox) 30 mg SC DAILY [facility] Last Admin: 07/10/18 09:21 Dose: 30 mg Sodium Chloride (Sodium Chloride 0.9%) 1,000 mls @ 100 mls/hr IV .Q10H [facility] Last Admin: 07/10/18 11:26 Dose: Not Given Ciprofloxacin (Cipro 400mg/200ml Dsw) 400 mg in 200 mls @ 133 mls/hr IVPB Q12H [facility] PRN Reason: Protocol Last Admin: 07/10/18 06:30 Dose: 133 mls/hr Metronidazole (Flagyl) 500 mg in 100 mls @ 100 mls/hr IVPB Q8H [facility] PRN Reason: Protocol Last Admin: 07/10/18 05:26 Dose: 100 mls/hr Metoclopramide HCl (Reglan) 5 mg IVP Q6H [facility] Last Admin: 07/10/18 12:22 Dose: 5 mg Ondansetron HCl (Zofran Inj) 4 mg IVP Q6H PRN PRN Reason: Nausea/Vomiting Pantoprazole Sodium (Protonix Inj) 40 mg IVP DAILY [facility] Last Admin: 07/10/18 09:21 Dose: 40 mg Saccharomyces Boulardii (Florastor) 250 mg PO BID [facility] Last Admin: 07/10/18 09:18 Dose: 250 mg - Labs Labs: 07/10/18 07:41 07/10/18 07:41 - Constitutional Appears: Well, Non-toxic - Head Exam Head Exam: ATRAUMATIC, NORMAL INSPECTION - Eye Exam Eye Exam: EOMI. absent: Conjunctival injection, Scleral icterus - Respiratory Exam Respiratory Exam: NORMAL BREATHING PATTERN. absent: Accessory Muscle Use, Respiratory Distress - GI/Abdominal Exam GI & Abdominal Exam: Soft, Tenderness (mildly in epigastrum w/o guarding). absent: Firm, Guarding, Rigid Assessment and Plan - Assessment and Plan (Free Text) Assessment: 62 yo Hisp Female presenting with Abd pain. # Abd Pain: Perhaps related to patients gastritis as some seen on EGD. Also had large gastric polyp (nearly 2 cm, see EGD report) which could contribute though less likely. Symptoms also could be related to UTI. Of note, pt did become hypoxic shortly after administration of anesthesia and procedure commencement requiring intubation for oxygenation support. Fortunately, pt was only intubated for few minutes for procedure completion and was awake, alert, conversive post procedure. CSPY done on 07/09 report not uploaded, biopsies from EGD and CSPY unremarkable. Plan: - Recommend Gen Surg eval of large gastric polyp - Cont PPI for now - Trt of UTI per primary Pt seen and examined with Dr. Loya. See his note for further recs/changes.
[2018-07-10] MEDS ORDERED: Potassium Chloride 20 mEq ER Tab PO ONE (14:15)
[2018-07-10] MEDS: Simethicone 80 mg Chewtab PO SCH ×2 (17:43→21:40)
--- NOTE | 2018-07-10 17:44 | CP.PCM.CON ---
History of Present Illness - History of Present Illness History of Present Illness: GENERAL SURGERY CONSULT NOTE FOR DR. MOSS 62yo F with PMHx of HTN, gastritis, sleep apnea on BIPAP presented to the ED on 07/07 for nausea, vomiting, epigastric pain and fevers. She states over the last few days has had some generalized abdominal pain, worse in epigastrum than lower abd, associated with N/V. Emesis is nb/nb emesis. She also reported some polyruria and fever. She reports having a colonoscopy about 6-7 years ago but does not recall results. States that she normally has yellowish stool nearly every day but states might be going more frequently. She also reports that she has been on antibiotics in the last few months for a UTI. Denies any hematemesis, melena, hematochezia, change in diet or sick contacts. On 07/08, pt had EGD which showed hiatal herina and a single 19mm pedunculated and sessile polyp w/o any bleeding located in the greater curvature of stomach. On 07/09 pt had colonoscopy which showed colitis, diverticulosis and spastic colon. PMHx: hypertension, depression, gastritis, arthritis, osteoporosis, sleep apnea (on Bipap at home) PSHx: X1, Hysterectomy and Fibroid removal Medications: Atenolol, Alendronate, Ca2+ Carbonate, Protonix FHx: Father ( cardiomyopathy), Paternal Uncle (Cardiomyopathy), Mother (lymphoma , DM and Osteoporosis) SocHx: Denied etoh, tob, ill Allergies: NKDA Review of Systems - Review of Systems All systems: reviewed and no additional remarkable complaints except (as per hpi ) Past Patient History - Past Medical History & Family History Past Medical History?: Yes - Past Social History Smoking Status: Never Smoked - CARDIAC Hx Hypertension: Yes - PULMONARY Hx Sleep Apnea: Yes (SCHEDULED FOR SLEEP STUDY) - NEUROLOGICAL Hx Neurological Disorder: No - HEENT Hx HEENT Problems: Yes Hx Glaucoma: Yes - RENAL Hx Chronic Kidney Disease: Yes - ENDOCRINE/METABOLIC Hx Endocrine Disorders: No - HEMATOLOGICAL/ONCOLOGICAL Hx Blood Disorders: No - INTEGUMENTARY Hx Dermatological Problems: No - MUSCULOSKELETAL/RHEUMATOLOGICAL Hx Falls: No Hx Osteoporosis: Yes - GASTROINTESTINAL Hx Gastrointestinal Disorders: Yes Hx Gastroesophageal Reflux: Yes - GENITOURINARY/GYNECOLOGICAL Hx Genitourinary Disorders: No - PSYCHIATRIC Hx Anxiety: Yes Hx Depression: Yes Hx Substance Use: No - SURGICAL HISTORY Hx Surgeries: Yes Hx Eye Surgery: Yes Hx Hysterectomy: Yes - ANESTHESIA Hx Anesthesia: Yes Hx Anesthesia Reactions: No Hx Malignant Hyperthermia: No Meds Allergies/Adverse Reactions: Allergies Allergy/AdvReac Type Severity Reaction Status Date / Time No Known Allergies Allergy Verified 07/07/18 15:32 - Medications Medications: Current Medications Acetaminophen (Tylenol 325mg Tab) 650 mg PO Q6 PRN PRN Reason: Fever >100.4 F Last Admin: 07/10/18 11:32 Dose: 650 mg Alprazolam (Xanax) 0.5 mg PO BID PRN PRN Reason: Anxiety Last Admin: 07/09/18 21:08 Dose: 0.5 mg Atenolol (Tenormin) 50 mg PO DAILY [facility] Last Admin: 07/10/18 09:18 Dose: 50 mg Calcium/Vitamin D (Oscal-D 250 Mg-125 Units Tab) 1 tab PO BID [facility] Last Admin: 07/10/18 09:18 Dose: 1 tab Enoxaparin Sodium (Lovenox) 30 mg SC DAILY [facility] Last Admin: 07/10/18 09:21 Dose: 30 mg Home Med (Patient's Own Medication) 1 tab PO Q24H [facility] Sodium Chloride (Sodium Chloride 0.9%) 1,000 mls @ 100 mls/hr IV .Q10H [facility] Last Admin: 07/10/18 11:26 Dose: Not Given Ciprofloxacin (Cipro 400mg/200ml Dsw) 400 mg in 200 mls @ 133 mls/hr IVPB Q12H [facility] PRN Reason: Protocol Last Admin: 07/10/18 06:30 Dose: 133 mls/hr Metronidazole (Flagyl) 500 mg in 100 mls @ 100 mls/hr IVPB Q8H [facility] PRN Reason: Protocol Last Admin: 07/10/18 13:56 Dose: 100 mls/hr Metoclopramide HCl (Reglan) 5 mg IVP Q6H [facility] Last Admin: 07/10/18 12:22 Dose: 5 mg Ondansetron HCl (Zofran Inj) 4 mg IVP Q6H PRN PRN Reason: Nausea/Vomiting Pantoprazole Sodium (Protonix Inj) 40 mg IVP DAILY [facility] Last Admin: 07/10/18 09:21 Dose: 40 mg Saccharomyces Boulardii (Florastor) 250 mg PO BID [facility] Last Admin: 07/10/18 09:18 Dose: 250 mg Simethicone (Mylicon Chew Tab) 80 mg PO QID [facility] Physical Exam - Constitutional Appears: Non-toxic, No Acute Distress - Head Exam Head Exam: ATRAUMATIC, NORMAL INSPECTION - Eye Exam Eye Exam: EOMI, Normal appearance - Respiratory Exam Respiratory Exam: NORMAL BREATHING PATTERN. absent: Respiratory Distress - Cardiovascular Exam Cardiovascular Exam: +S1, +S2 - GI/Abdominal Exam GI & Abdominal Exam: Soft. absent: Tenderness - Neurological Exam Neurological exam: Alert, CN II-XII Intact, Oriented x3 - Psychiatric Exam Psychiatric exam: Normal Affect, Normal Mood - Skin Skin Exam: Dry, Normal Color, Warm Results - Vital Signs Recent Vital Signs: Last Vital Signs Temp 99.4 F 07/10/18 15:00 Pulse 75 07/10/18 15:00 Resp 20 07/10/18 15:00 BP 172/99 H 07/10/18 15:00 Pulse Ox 96 07/10/18 15:00 - Labs Result Diagrams: 07/10/18 07:41 07/10/18 07:41 Labs: Laboratory Results - last 24 hr 07/10/18 07/10/18 07:41 07:41 WBC 4.8 RBC 4.01 Hgb 11.7 Hct 33.8 L MCV 84.5 MCH 29.3 MCHC 34.7 RDW 14.1 Plt Count 266 MPV 7.1 L Neut % (Auto) 65.0 Lymph % (Auto) 25.0 [place] % (Auto) 7.8 Eos % (Auto) 0.5 Baso % (Auto) 1.7 Neut # (Auto) 3.1 Lymph # (Auto) 1.2 [place] # (Auto) 0.4 Eos # (Auto) 0.0 Baso # (Auto) 0.1 Sodium 143 Potassium 3.5 L Chloride 108 H Carbon Dioxide 23 Anion Gap 15 BUN 3 L Creatinine 0.6 L Est GFR ( Amer) > 60 Est GFR (Non-Af Amer) > 60 Random Glucose 142 H Calcium 8.8 Phosphorus 2.5 Magnesium 1.9 Assessment & Plan - Assessment and Plan (Free Text) Assessment: 62yo F with PMHx of HTN, gastritis, sleep apnea on BIPAP found to have unresectable gastric polyp on EGD - Plan for partial gastrectomy on Friday - Needs medical clearance - Discussed plan with Dr. Caroline Pike PGY-4
[2018-07-11] MEDS: metroNIDAZOLE IV 500 mg/100 ml 500 MG/100 ML BAG IVPB SCH ×3 (05:30→21:21)
[2018-07-11] MEDS: Ciprofloxacin 400mg/200ml D5W 400 MG/200 ML BAG IVPB SCH ×2 (06:50→17:42)
[2018-07-11 07:26] LABS: ALB/GLOB RATIO 1.4 (1.0-2.1); ALBUMIN 4.1 g/dL (3.5-5.0); ALT/SGPT 39 U/L (9-52); AST/SGOT 28 U/L (14-36); BLOOD UREA NITROGEN 4 mg/dL (7-17); GFR AFRICAN-AMERICAN > 60; GFR NON-AFRICAN AMERICAN > 60
[2018-07-11 07:27] LABS: BASO % 0.7 % (0.0-2.0); EOS # 0.1 K/uL (0.0-0.7); EOS % 1.1 % (0.0-4.0); HEMOGLOBIN 12.4 g/dL (11.0-16.0); LYMPH # 1.8 K/uL (1.0-4.3); LYMPH % 29.7 % (20.0-40.0); MEAN CELL VOLUME 84.1 fL (81.0-99.0); MEAN CORPUSCULAR HEMOGLOBIN 29.1 pg (27.0-31.0); MEAN CORPUSCULAR HGB CONC 34.7 g/dL (33.0-37.0); MEAN PLATELET VOLUME 7.2 fL (7.2-11.7); MONO # 0.4 K/uL (0.0-0.8); MONO % 7.4 % (0.0-10.0); NEUT # 3.6 K/uL (1.8-7.0); NEUT % 61.1 % (50.0-75.0); NRBC % 0.2 % (0.0-2.0); RBC 4.27 Mil/uL (3.80-5.20); WHITE BLOOD COUNT 5.9 K/uL (4.8-10.8)
--- NOTE | 2018-07-11 08:15 | CP.PCM.PN ---
Subjective - Date & Time of Evaluation Date of Evaluation: 07/11/18 Time of Evaluation: 08:12 - Subjective Subjective: Pt seen and examined at bedside. Pt laying comfortably. pt complains of a headache overnight. Pt experienced a normal bowel movement. pt denies f/c, n/v, chest pain sob Objective - Vital Signs/Intake and Output Vital Signs (last 24 hours): Temp Pulse Resp BP Pulse Ox 98.5 F 77 20 164/97 H 95 07/10/18 23:40 07/10/18 23:40 07/10/18 23:40 07/10/18 23:40 07/10/18 23:40 Intake and Output: 07/11/18 07/11/18 06:59 18:59 Intake Total 1040 Balance 1040 - Medications Medications: Current Medications Acetaminophen (Tylenol 325mg Tab) 650 mg PO Q6 PRN PRN Reason: Fever >100.4 F Last Admin: 07/10/18 11:32 Dose: 650 mg Alprazolam (Xanax) 0.5 mg PO BID PRN PRN Reason: Anxiety Last Admin: 07/10/18 21:40 Dose: 0.5 mg Atenolol (Tenormin) 50 mg PO DAILY [facility] Last Admin: 07/10/18 09:18 Dose: 50 mg Calcium/Vitamin D (Oscal-D 250 Mg-125 Units Tab) 1 tab PO BID [facility] Last Admin: 07/10/18 17:43 Dose: 1 tab Enoxaparin Sodium (Lovenox) 30 mg SC DAILY [facility] Last Admin: 07/10/18 09:21 Dose: 30 mg Home Med (Patient's Own Medication) 1 tab PO Q24H [facility] Last Admin: 07/10/18 17:42 Dose: 1 tab Ciprofloxacin (Cipro 400mg/200ml Dsw) 400 mg in 200 mls @ 133 mls/hr IVPB Q12H [facility] PRN Reason: Protocol Last Admin: 07/11/18 06:50 Dose: 133 mls/hr Metronidazole (Flagyl) 500 mg in 100 mls @ 100 mls/hr IVPB Q8H [facility] PRN Reason: Protocol Last Admin: 07/11/18 05:30 Dose: 100 mls/hr Metoclopramide HCl (Reglan) 5 mg IVP Q6H [facility] Last Admin: 07/11/18 06:05 Dose: 5 mg Ondansetron HCl (Zofran Inj) 4 mg IVP Q6H PRN PRN Reason: Nausea/Vomiting Last Admin: 07/11/18 07:58 Dose: 4 mg Pantoprazole Sodium (Protonix Inj) 40 mg IVP DAILY [facility] Last Admin: 07/10/18 09:21 Dose: 40 mg Saccharomyces Boulardii (Florastor) 250 mg PO BID [facility] Last Admin: 07/10/18 17:43 Dose: 250 mg Simethicone (Mylicon Chew Tab) 80 mg PO QID [facility] Last Admin: 07/10/18 21:40 Dose: 80 mg - Labs Labs: 07/11/18 07:09 07/11/18 07:09 Assessment and Plan - Assessment and Plan (Free Text) Assessment: - Constitutional Appears: Well, No Acute Distress - Head Exam Head Exam: ATRAUMATIC, NORMAL INSPECTION, NORMOCEPHALIC - Eye Exam Eye Exam: EOMI, Normal appearance - ENT Exam ENT Exam: Mucous Membranes Moist, Normal Exam - Neck Exam Neck Exam: Normal Inspection - Respiratory Exam Respiratory Exam: Clear to Ausculation Bilateral, NORMAL BREATHING PATTERN - Cardiovascular Exam Cardiovascular Exam: REGULAR RHYTHM, +S1, +S2 - GI/Abdominal Exam GI & Abdominal Exam: Soft, Normal Bowel Sounds - Rectal Exam Rectal Exam: Deferred - Extremities Exam Extremities Exam: Full ROM, Normal Inspection - Back Exam Back Exam: NORMAL INSPECTION - Neurological Exam Neurological Exam: Alert, Awake, Oriented x3 - Psychiatric Exam Psychiatric exam: Anxious - Skin Skin Exam: Dry, Intact, Normal Color, Warm Assessment and Plan - Assessment and Plan (Free Text) Assessment: Patient is a 62 yo female with past medical history of hypertension, depression, gastritis, arthritis, osteoporosis, sleep apnea on Bipap who presented with epigastric/lower abdominal pain with associated symptoms of fever , nausea, non-bilious vomiting, diarrhea, and urinary frequency x1-2 days. EGD found gastric polyp. Colonoscopy revealed colitis and spastic colon. Plan: Gastric polyp- 2 cm - Biopsied during EGD- negative, no H. pylori - Gen surg consulted (Dr. Velazquez)- polypectomy scheduled for Friday 07/13 Gastritis and colitis, acute - EGD 07/08: Bx gastric polyp negative for H. pylori - Colonoscopy 07/09: colitis, spastic colon - Reglan 5 mg IV q6hrs - Simethicone 80 mg PO QID - Start Cipro 400 mg IV BID (07/09) - Start Flagyl 500 mg IV q8hrs (07/09) Sepsis, acute, resolved- 2/2 gastritis/colitis - On admission: temp 102.8, HR 110 - Most recent fever 101.2 on 07/08 @ 8:30 PM - Repeat clean catch UA negative - Tylenol 650mg PO q6hrs PRN - Discontinue Rocephin 1gm IV- no UTI - Start Cipro 400 mg IV BID (07/09) - Start Flagyl 500 mg IV q8hrs (07/09) - Urine Cx- contaminants - Blood Cx negative >48 hrs - Stool Cx negative - CT A/P 07/07: no acute findings Vomiting, acute, resolved - Zofran 4mg IV Q6H PRN - NS @ 100 mL/hr Osteoporosis, chronic, stable - Continue home Calcium Carbonate 1 tab PO BID - Hold Alendronate 150mg PO daily due to possible GI side effects HTN, chronic, stable - Continue home Atenolol 50mg PO daily Anxiety - Trintellix 10 mg PO qhs - Xanax 0.5 mg BID prn IVF: NS @ 100 GI ppx: Protonix 40mg IV daily, Florastor 250 mg PO BID VTE ppx: SCDs and Lovenox 40mg SC daily Diet: heart healthy Code status: full code
[2018-07-11] MEDS: Saccharomyces Boulardi 250 mg Cap PO SCH ×2 (09:20→17:42)
[2018-07-11] MEDS: Calcium-Vit D 250 mg-125 Units Tab UD PO SCH ×2 (09:20→17:42)
[2018-07-11] MEDS: Simethicone 80 mg Chewtab PO SCH ×4 (09:21→21:21)
[2018-07-11] MEDS: Enoxaparin 30 mg Syringe SC SCH (09:21)
[2018-07-11] MEDS ORDERED: Potassium Chloride 20 mEq ER Tab PO ONE ×2 (10:25→12:34)
--- NOTE | 2018-07-11 10:29 | CP.PCM.PN ---
Subjective - Date & Time of Evaluation Date of Evaluation: 07/11/18 Time of Evaluation: 07:00 - Subjective Subjective: GENERAL SURGERY PROGRESS NOTE FOR DR. MOSS Patient seen and examined at bedside. Reports mild epigastric pain. Denies nausea or vomiting. Reports feeling "gassy" and "full" so hasn't eaten much. Fever 100.4 this AM. Objective - Vital Signs/Intake and Output Vital Signs (last 24 hours): Temp Pulse Resp BP Pulse Ox 100.4 F H 77 20 164/97 H 95 07/11/18 09:20 07/10/18 23:40 07/10/18 23:40 07/10/18 23:40 07/10/18 23:40 Intake and Output: 07/11/18 07/11/18 06:59 18:59 Intake Total 1040 Balance 1040 - Medications Medications: Current Medications Acetaminophen (Tylenol 325mg Tab) 650 mg PO Q6 PRN PRN Reason: Fever >100.4 F Last Admin: 07/11/18 09:20 Dose: 650 mg Alprazolam (Xanax) 0.5 mg PO BID PRN PRN Reason: Anxiety Last Admin: 07/10/18 21:40 Dose: 0.5 mg Atenolol (Tenormin) 50 mg PO DAILY [facility] Last Admin: 07/11/18 09:20 Dose: 50 mg Calcium/Vitamin D (Oscal-D 250 Mg-125 Units Tab) 1 tab PO BID [facility] Last Admin: 07/11/18 09:20 Dose: 1 tab Enoxaparin Sodium (Lovenox) 30 mg SC DAILY [facility] Last Admin: 07/11/18 09:21 Dose: 30 mg Home Med (Patient's Own Medication) 1 tab PO Q24H [facility] Last Admin: 07/10/18 17:42 Dose: 1 tab Ciprofloxacin (Cipro 400mg/200ml Dsw) 400 mg in 200 mls @ 133 mls/hr IVPB Q12H [facility] PRN Reason: Protocol Last Admin: 07/11/18 06:50 Dose: 133 mls/hr Metronidazole (Flagyl) 500 mg in 100 mls @ 100 mls/hr IVPB Q8H [facility] PRN Reason: Protocol Last Admin: 07/11/18 05:30 Dose: 100 mls/hr Metoclopramide HCl (Reglan) 5 mg IVP Q6H [facility] Last Admin: 07/11/18 06:05 Dose: 5 mg Ondansetron HCl (Zofran Inj) 4 mg IVP Q6H PRN PRN Reason: Nausea/Vomiting Last Admin: 07/11/18 07:58 Dose: 4 mg Pantoprazole Sodium (Protonix Inj) 40 mg IVP DAILY [facility] Last Admin: 07/11/18 09:21 Dose: 40 mg Potassium Chloride (K-Dur 20 Meq Er Tab) 20 meq PO ONCE ONE Stop: 07/11/18 10:26 Saccharomyces Boulardii (Florastor) 250 mg PO BID [facility] Last Admin: 07/11/18 09:20 Dose: 250 mg Simethicone (Mylicon Chew Tab) 80 mg PO QID [facility] Last Admin: 07/11/18 09:21 Dose: 80 mg - Labs Labs: 07/11/18 07:09 07/11/18 07:09 - Constitutional Appears: Non-toxic, No Acute Distress - Head Exam Head Exam: ATRAUMATIC, NORMAL INSPECTION - Respiratory Exam Respiratory Exam: NORMAL BREATHING PATTERN. absent: Respiratory Distress - Cardiovascular Exam Cardiovascular Exam: +S1, +S2 - GI/Abdominal Exam GI & Abdominal Exam: Soft, Tenderness (mild tenderness in epigastric area). absent: Distended, Firm, Guarding, Rigid, Rebound - Neurological Exam Neurological Exam: Alert, Awake, Oriented x3 - Psychiatric Exam Psychiatric exam: Normal Affect, Normal Mood - Skin Skin Exam: Dry, Normal Color, Warm Assessment and Plan - Assessment and Plan (Free Text) Assessment: 62yo F with PMHx of HTN, gastritis, sleep apnea on BIPAP found to have unresectable gastric polyp on EGD - Plan for polypectomy vs partial gastrectomy on Friday - Needs medical clearance - NPO past midnight on Friday - Hold Lovenox Friday AM - Discussed plan with Dr. Caroline Pike PGY-4
[2018-07-11 13:12] LABS: VENOUS BLOOD GAS BASE EXCESS -1.7 mmol/L (0.0-2.0); VENOUS BLOOD GAS PCO2 38 mmHg (40-60); VENOUS BLOOD GAS PO2 44 mm/Hg (30-55); VENOUS BLOOD PH 7.39 (7.32-7.43)
--- NOTE | 2018-07-11 13:24 | PN ---
Copied To: Doris Yin MD Attending MD: Doris Yin MD DATE: 07/11/2018 LOCATION: Room 664, bed B. SUBJECTIVE: This 62-year-old female seen and examined in rounds with a complaint of midepigastric pain believed to be secondary to her large gastric polyp but no reported actual chest pain, palpitation, evidence of active bleeding, chills, or fever. The entire chart is reviewed including but not limited to the most recent lab and radiology study results, current and the previous medication list, current and the previous medical events. This case discussed at length with the staff on daily basis, and the patient reported no diarrhea or active bleeding this morning. PHYSICAL EXAMINATION: GENERAL: A 62-year-old female, awake, alert, and oriented. VITAL SIGNS: Afebrile with pulse of 74, respiratory rate 20 to 22 with blood pressure of 160/90. HEENT: Showed pale, dry oral mucous membranes. Nonicteric sclerae. LUNGS: A few scattered crepitation. Decreased air entry at bases. HEART: Positive S1 and S2. ABDOMEN: Soft with mild generalized tenderness. No mass or organomegaly. No rebound tenderness or guarding. EXTREMITIES: Without edema, clubbing, or cyanosis. NEUROLOGIC: No reported neurological deficits, sensory or motor. IMPRESSION: 1. Large gastric polypoid lesion, most likely benign. It is very hypervascular and very wide base, surgical consultation performed. 2. Recurrent urinary tract infection. 3. Left-sided colitis. SUGGESTIONS: 1. Continue current management. 2. The patient may need repeat upper endoscopy with tattooing the site of the previously seen gastric polyp, that to be discussed at length with the end user consultant team. 3. Due to the patient's recently diagnosed diverticulosis with probably early phase of acute diverticulitis and diarrhea, no seeds to be given. 4. Further recommendation to follow. Doris Yin MD
[2018-07-11 14:50] LABS: SQUAMOUS EPITHIAL 1 /hpf (0-5); URINE BILIRUBIN NEGATIVE (NEGATIVE); URINE BLOOD NEGATIVE (NEGATIVE); URINE CLARITY Clear (Clear); URINE COLOR Yellow (YELLOW); URINE GLUCOSE (UA) NORMAL (Normal); URINE LEUKOCYTE ESTERASE TRACE Leu/uL (Negative); URINE PROTEIN NEGATIVE (NEGATIVE); URINE UROBILINOGEN NORMAL mg/dL (0.2-1.0)
--- NOTE | 2018-07-11 17:22 | CP.PCM.CON ---
History of Present Illness - History of Present Illness History of Present Illness: dictated Past Patient History - Past Medical History & Family History Past Medical History?: Yes - Past Social History Smoking Status: Never Smoked - CARDIAC Hx Hypertension: Yes - PULMONARY Hx Sleep Apnea: Yes (SCHEDULED FOR SLEEP STUDY) - NEUROLOGICAL Hx Neurological Disorder: No - HEENT Hx HEENT Problems: Yes Hx Glaucoma: Yes - RENAL Hx Chronic Kidney Disease: Yes - ENDOCRINE/METABOLIC Hx Endocrine Disorders: No - HEMATOLOGICAL/ONCOLOGICAL Hx Blood Disorders: No - INTEGUMENTARY Hx Dermatological Problems: No - MUSCULOSKELETAL/RHEUMATOLOGICAL Hx Falls: No Hx Osteoporosis: Yes - GASTROINTESTINAL Hx Gastrointestinal Disorders: Yes Hx Gastroesophageal Reflux: Yes - GENITOURINARY/GYNECOLOGICAL Hx Genitourinary Disorders: No - PSYCHIATRIC Hx Anxiety: Yes Hx Depression: Yes Hx Substance Use: No - SURGICAL HISTORY Hx Surgeries: Yes Hx Eye Surgery: Yes Hx Hysterectomy: Yes - ANESTHESIA Hx Anesthesia: Yes Hx Anesthesia Reactions: No Hx Malignant Hyperthermia: No Meds Allergies/Adverse Reactions: Allergies Allergy/AdvReac Type Severity Reaction Status Date / Time No Known Allergies Allergy Verified 07/07/18 15:32 - Medications Medications: Current Medications Acetaminophen (Tylenol 325mg Tab) 650 mg PO Q6 PRN PRN Reason: Fever >100.4 F Last Admin: 07/11/18 09:20 Dose: 650 mg Alprazolam (Xanax) 0.5 mg PO BID PRN PRN Reason: Anxiety Last Admin: 07/10/18 21:40 Dose: 0.5 mg Atenolol (Tenormin) 50 mg PO DAILY [facility] Last Admin: 07/11/18 09:20 Dose: 50 mg Calcium/Vitamin D (Oscal-D 250 Mg-125 Units Tab) 1 tab PO BID [facility] Last Admin: 07/11/18 09:20 Dose: 1 tab Enoxaparin Sodium (Lovenox) 30 mg SC DAILY [facility] Last Admin: 07/11/18 09:21 Dose: 30 mg Home Med (Patient's Own Medication) 1 tab PO Q24H [facility] Last Admin: 07/10/18 17:42 Dose: 1 tab Ciprofloxacin (Cipro 400mg/200ml Dsw) 400 mg in 200 mls @ 133 mls/hr IVPB Q12H [facility] PRN Reason: Protocol Last Admin: 07/11/18 06:50 Dose: 133 mls/hr Metronidazole (Flagyl) 500 mg in 100 mls @ 100 mls/hr IVPB Q8H [facility] PRN Reason: Protocol Last Admin: 07/11/18 13:50 Dose: 100 mls/hr Metoclopramide HCl (Reglan) 5 mg IVP Q6H [facility] Last Admin: 07/11/18 13:50 Dose: 5 mg Ondansetron HCl (Zofran Inj) 4 mg IVP Q6H PRN PRN Reason: Nausea/Vomiting Last Admin: 07/11/18 07:58 Dose: 4 mg Pantoprazole Sodium (Protonix Inj) 40 mg IVP DAILY [facility] Last Admin: 07/11/18 09:21 Dose: 40 mg Saccharomyces Boulardii (Florastor) 250 mg PO BID [facility] Last Admin: 07/11/18 09:20 Dose: 250 mg Simethicone (Mylicon Chew Tab) 80 mg PO QID [facility] Last Admin: 07/11/18 13:50 Dose: 80 mg Results - Vital Signs Recent Vital Signs: Last Vital Signs Temp 98.8 F 07/11/18 15:10 Pulse 67 07/11/18 15:10 Resp 20 07/11/18 15:10 BP 178/103 H 07/11/18 15:10 Pulse Ox 96 07/11/18 15:10 - Labs Result Diagrams: 07/11/18 07:09 07/11/18 07:09 Labs: Laboratory Results - last 24 hr 07/11/18 07/11/18 07/11/18 07:09 07:09 13:09 WBC 5.9 RBC 4.27 Hgb 12.4 Hct 35.9 MCV 84.1 MCH 29.1 MCHC 34.7 RDW 14.0 Plt Count 281 MPV 7.2 Neut % (Auto) 61.1 Lymph % (Auto) 29.7 [place] % (Auto) 7.4 Eos % (Auto) 1.1 Baso % (Auto) 0.7 Neut # (Auto) 3.6 Lymph # (Auto) 1.8 [place] # (Auto) 0.4 Eos # (Auto) 0.1 Baso # (Auto) 0.0 pO2 44 VBG pH 7.39 VBG pCO2 38 L VBG HCO3 23.1 VBG Total CO2 24.2 VBG O2 Sat (Calc) 83.4 H VBG Base Excess -1.7 L VBG Potassium 3.2 L Glucose 124 H Lactate 1.9 Sodium 144 142.0 Potassium 3.5 L Chloride 108 H 109.0 H Carbon Dioxide 24 Anion Gap 16 BUN 4 L Creatinine 0.6 L Est GFR ( Amer) > 60 Est GFR (Non-Af Amer) > 60 Random Glucose 128 H Calcium 9.0 Phosphorus 2.8 Magnesium 1.9 Total Bilirubin 0.7 AST 28 ALT 39 Alkaline Phosphatase 55 Total Protein 7.1 Albumin 4.1 Globulin 3.0 Albumin/Globulin Ratio 1.4 Venous Blood Potassium 3.2 L Urine Color Urine Clarity Urine pH Ur Specific [place] Urine Protein Urine Glucose (UA) Urine Ketones Urine Blood Urine Nitrate Urine Bilirubin Urine Urobilinogen Ur Leukocyte Esterase Urine WBC (Auto) Urine RBC (Auto) Ur Squamous Epith Cells 07/11/18 14:43 WBC RBC Hgb Hct MCV MCH MCHC RDW Plt Count MPV Neut % (Auto) Lymph % (Auto) [place] % (Auto) Eos % (Auto) Baso % (Auto) Neut # (Auto) Lymph # (Auto) [place] # (Auto) Eos # (Auto) Baso # (Auto) pO2 VBG pH VBG pCO2 VBG HCO3 VBG Total CO2 VBG O2 Sat (Calc) VBG Base Excess VBG Potassium Glucose Lactate Sodium Potassium Chloride Carbon Dioxide Anion Gap BUN Creatinine Est GFR ( Amer) Est GFR (Non-Af Amer) Random Glucose Calcium Phosphorus Magnesium Total Bilirubin AST ALT Alkaline Phosphatase Total Protein Albumin Globulin Albumin/Globulin Ratio Venous Blood Potassium Urine Color Yellow Urine Clarity Clear Urine pH 5.0 Ur Specific [place] 1.014 Urine Protein Negative Urine Glucose (UA) Normal Urine Ketones Negative Urine Blood Negative Urine Nitrate Negative Urine Bilirubin Negative Urine Urobilinogen Normal Ur Leukocyte Esterase Trace Urine WBC (Auto) 1 Urine RBC (Auto) 2 Ur Squamous Epith Cells 1
[2018-07-11] MEDS: Nystatin 100,000 Units/ml Oral Susp 5 ml UD PO SCH ×2 (17:46→21:21)
--- NOTE | 2018-07-12 04:39 | CON ---
Copied To: Andie Weems MD Attending MD: Andie Weems MD DATE: 07/11/2018 HISTORY OF PRESENT ILLNESS: The patient is a 62-year-old female. She has a history of hypertension, depression, gastritis, osteoporosis, and sleep apnea. She was admitted with epigastric pain, and also she was vomiting. She came in. She was admitted on 07/07/2018. The patient was admitted with subjective fever, chills, nausea, and vomiting. She had epigastric pain, and she said she was recently treated for UTI. She is Dr. Whittaker's patient. PAST MEDICAL HISTORY: Significant for hypertension, depression, gastritis, arthritis, osteoporosis. She also has sleep apnea and is on a BiPAP machine. SURGICAL HISTORY: Significant for , hysterectomy, and she also had a left hand surgery. She had a fracture and has a jennifer there, and had bilateral cataract surgeries. FAMILY HISTORY: Father has cardiomyopathy, and mother is alive with lymphoma, diabetes mellitus, and osteoporosis. MEDICATIONS: Tylenol, alprazolam, atenolol, calcium, Cipro, and she is on Lovenox. She has some home medications, which I am not sure; metoclopramide. She is on metronidazole. She is on Zofran, Protonix. She is on Florastor and Mylicon, so lot of drugs for her stomach issues at present. ALLERGIES: SHE IS NOT ALLERGIC TO ANY MEDICINE. I am asked to see because she is having low grade temps. She is disabled. She denies any current tobacco, alcohol, or drug abuse. She has been having these low-grade temps this morning, which were 100.5, 100.6, and before that she had 101.2 when she came in, and she was initially on Rocephin. Today, I see she is on Cipro and Flagyl. REVIEW OF SYSTEMS: She denies any chills now. No fever. She denies any nausea or vomiting. She does complain of epigastric pain. She denies any shortness of breath. No cough, no chest pain. She does have abdominal pain. Denies nausea or vomiting. She has lot of gas she says, but she had procedures done. She denies any diarrhea now. She did have diarrhea yesterday, and she has had CAT scans done. She denies any lower leg pains. Denies any urinary symptoms. PHYSICAL EXAMINATION: HEENT: Head is atraumatic. Pupils are reacting to light. Tongue is moist. She does have some thrush, it looks like. GENERAL: She speaks Georgian. LUNGS: Clear. CHEST: Chest wall is symmetrical. No crackles or rales present. HEART: S1, S2 are regular. No murmurs appreciated. ABDOMEN: Soft, nontender. Mild epigastric tenderness. No guarding, no rigidity. EXTREMITIES: Have no edema, clubbing, or cyanosis. LABORATORY DATA: Labs show white count is 5.9, hemoglobin 12.4, hematocrit 35.9, platelet count is 281. She had an ABG done, which is unremarkable, pH 7.39, CO2 of 38, pO2 of 83.4. Lactate level is 1.9. Glucose is 124, sodium 144, potassium 3.5, chloride of 108, CO2 is 24, BUN is 16, creatinine 0.8. Sugars are okay. UA is also negative. Initially, when she came, she had 1+ leukocytes. Now the leukocytes are trace, wbc is only 1, and she had abdominal CT done, and abdominal CT is negative for any acute problems. There is only diverticulosis without evidence of diverticulitis. She underwent a chest x-ray report which is pending at this time. IMPRESSION: Etiology of her fevers are very unclear at this time. She has had antibiotics before. If she continues to have diarrhea, I will do a stool for Clostridium difficile. She is right now on Cipro and Flagyl. I may continue that until blood culture and chest x-ray reports and urine culture report are available. The last blood cultures and urine cultures are negative. At this time, I am just going to put her on some Nystatin as I do see some whitish tongue, and we will follow. She does have some thrush in. I would just make sure I get an HIV test done also if not done in the morning. Andie Weems MD
[2018-07-12] MEDS: metroNIDAZOLE IV 500 mg/100 ml 500 MG/100 ML BAG IVPB SCH ×3 (05:26→21:59)
[2018-07-12] MEDS: Ciprofloxacin 400mg/200ml D5W 400 MG/200 ML BAG IVPB SCH ×2 (06:36→20:06)
--- NOTE | 2018-07-12 08:10 | CP.PCM.PN ---
Subjective - Date & Time of Evaluation Date of Evaluation: 07/12/18 Time of Evaluation: 08:05 - Subjective Subjective: Pt seen and examined at bedside. Pt reports feeling hot overnight. no fevers recorded. Pt otherwise has no complaints. denies n/v sob chest pain Objective - Vital Signs/Intake and Output Vital Signs (last 24 hours): Temp Pulse Resp BP Pulse Ox 98.9 F 79 20 178/103 H 96 07/12/18 06:30 07/12/18 00:00 07/12/18 00:00 07/11/18 15:10 07/12/18 00:00 Intake and Output: 07/12/18 07/12/18 06:59 18:59 Intake Total 1300 Balance 1300 - Medications Medications: Current Medications Acetaminophen (Tylenol 325mg Tab) 650 mg PO Q6 PRN PRN Reason: Fever >100.4 F Last Admin: 07/11/18 09:20 Dose: 650 mg Alprazolam (Xanax) 0.5 mg PO BID PRN PRN Reason: Anxiety Last Admin: 07/11/18 22:23 Dose: 0.5 mg Atenolol (Tenormin) 50 mg PO DAILY [facility] Last Admin: 07/11/18 09:20 Dose: 50 mg Calcium/Vitamin D (Oscal-D 250 Mg-125 Units Tab) 1 tab PO BID [facility] Last Admin: 07/11/18 17:42 Dose: 1 tab Enoxaparin Sodium (Lovenox) 30 mg SC DAILY [facility] Last Admin: 07/11/18 09:21 Dose: 30 mg Home Med (Patient's Own Medication) 1 tab PO Q24H [facility] Last Admin: 07/11/18 17:42 Dose: 1 tab Ciprofloxacin (Cipro 400mg/200ml Dsw) 400 mg in 200 mls @ 133 mls/hr IVPB Q12H [facility] PRN Reason: Protocol Last Admin: 07/12/18 06:36 Dose: 133 mls/hr Metronidazole (Flagyl) 500 mg in 100 mls @ 100 mls/hr IVPB Q8H [facility] PRN Reason: Protocol Last Admin: 07/12/18 05:26 Dose: 100 mls/hr Metoclopramide HCl (Reglan) 5 mg IVP Q6H [facility] Last Admin: 07/12/18 06:05 Dose: 5 mg Nystatin (Nystatin Oral Susp) 5 ml PO QID [facility] Last Admin: 07/11/18 21:21 Dose: 5 ml Ondansetron HCl (Zofran Inj) 4 mg IVP Q6H PRN PRN Reason: Nausea/Vomiting Last Admin: 07/12/18 07:53 Dose: 4 mg Pantoprazole Sodium (Protonix Inj) 40 mg IVP DAILY [facility] Last Admin: 07/11/18 09:21 Dose: 40 mg Saccharomyces Boulardii (Florastor) 250 mg PO BID [facility] Last Admin: 07/11/18 17:42 Dose: 250 mg Simethicone (Mylicon Chew Tab) 80 mg PO QID [facility] Last Admin: 07/11/18 21:21 Dose: 80 mg - Labs Labs: 07/11/18 07:09 07/11/18 07:09 Assessment and Plan - Assessment and Plan (Free Text) Assessment: - Constitutional Appears: Well, No Acute Distress - Head Exam Head Exam: ATRAUMATIC, NORMAL INSPECTION, NORMOCEPHALIC - Eye Exam Eye Exam: EOMI, Normal appearance - ENT Exam ENT Exam: Mucous Membranes Moist, Normal Exam - Neck Exam Neck Exam: Normal Inspection - Respiratory Exam Respiratory Exam: Clear to Ausculation Bilateral, NORMAL BREATHING PATTERN - Cardiovascular Exam Cardiovascular Exam: REGULAR RHYTHM, +S1, +S2 - GI/Abdominal Exam GI & Abdominal Exam: Soft, Normal Bowel Sounds - Rectal Exam Rectal Exam: Deferred - Extremities Exam Extremities Exam: Full ROM, Normal Inspection - Back Exam Back Exam: NORMAL INSPECTION - Neurological Exam Neurological Exam: Alert, Awake, Oriented x3 - Psychiatric Exam Psychiatric exam: Anxious - Skin Skin Exam: Dry, Intact, Normal Color, Warm Assessment and Plan - Assessment and Plan (Free Text) Assessment: Patient is a 62 yo female with past medical history of hypertension, depression, gastritis, arthritis, osteoporosis, sleep apnea on Bipap who presented with epigastric/lower abdominal pain with associated symptoms of fever , nausea, non-bilious vomiting, diarrhea, and urinary frequency x1-2 days. EGD found gastric polyp. Colonoscopy revealed colitis and spastic colon. Plan: Gastric polyp- 2 cm - Biopsied during EGD- negative, no H. pylori - Gen surg consulted (Dr. Velazquez)- polypectomy scheduled for Friday 07/13 Gastritis and colitis, acute - EGD 07/08: Bx gastric polyp negative for H. pylori - Colonoscopy 07/09: colitis, spastic colon - Reglan 5 mg IV q6hrs - Simethicone 80 mg PO QID - Start Cipro 400 mg IV BID (07/09) - Start Flagyl 500 mg IV q8hrs (07/09) Sepsis, acute, resolved- 2/2 gastritis/colitis - On admission: temp 102.8, HR 110 - Most recent fever 101.2 on 07/08 @ 8:30 PM - Repeat clean catch UA negative - Tylenol 650mg PO q6hrs PRN - Discontinue Rocephin 1gm IV- no UTI - Start Cipro 400 mg IV BID (07/09) - Start Flagyl 500 mg IV q8hrs (07/09) - Urine Cx- contaminants - Blood Cx negative >48 hrs - Stool Cx negative - CT A/P 07/07: no acute findings Vomiting, acute, resolved - Zofran 4mg IV Q6H PRN - NS @ 100 mL/hr Osteoporosis, chronic, stable - Continue home Calcium Carbonate 1 tab PO BID - Hold Alendronate 150mg PO daily due to possible GI side effects HTN, chronic, stable - Continue home Atenolol 50mg PO daily Anxiety - Trintellix 10 mg PO qhs - Xanax 0.5 mg BID prn IVF: NS @ 100 GI ppx: Protonix 40mg IV daily, Florastor 250 mg PO BID VTE ppx: SCDs and Lovenox 40mg SC daily Diet: heart healthy Code status: full code
--- NOTE | 2018-07-12 08:30 | CP.PCM.PN ---
Subjective - Date & Time of Evaluation Date of Evaluation: 07/12/18 Time of Evaluation: 07:10 - Subjective Subjective: general surgery progress note for Dr. Orantes Patient seen and examined this am at bedside. No acute events overnight per nursing. patient states that she did have some mild nausea last night with dinner but denies f/c/v and abdominal pain. Objective - Vital Signs/Intake and Output Vital Signs (last 24 hours): Temp Pulse Resp BP Pulse Ox 98.9 F 79 20 178/103 H 96 07/12/18 06:30 07/12/18 00:00 07/12/18 00:00 07/11/18 15:10 07/12/18 00:00 Intake and Output: 07/12/18 07/12/18 06:59 18:59 Intake Total 1300 Balance 1300 - Medications Medications: Current Medications Acetaminophen (Tylenol 325mg Tab) 650 mg PO Q6 PRN PRN Reason: Fever >100.4 F Last Admin: 07/11/18 09:20 Dose: 650 mg Alprazolam (Xanax) 0.5 mg PO BID PRN PRN Reason: Anxiety Last Admin: 07/11/18 22:23 Dose: 0.5 mg Atenolol (Tenormin) 50 mg PO DAILY [facility] Last Admin: 07/11/18 09:20 Dose: 50 mg Calcium/Vitamin D (Oscal-D 250 Mg-125 Units Tab) 1 tab PO BID [facility] Last Admin: 07/11/18 17:42 Dose: 1 tab Enoxaparin Sodium (Lovenox) 30 mg SC DAILY [facility] Last Admin: 07/11/18 09:21 Dose: 30 mg Home Med (Patient's Own Medication) 1 tab PO Q24H [facility] Last Admin: 07/11/18 17:42 Dose: 1 tab Ciprofloxacin (Cipro 400mg/200ml Dsw) 400 mg in 200 mls @ 133 mls/hr IVPB Q12H [facility] PRN Reason: Protocol Last Admin: 07/12/18 06:36 Dose: 133 mls/hr Metronidazole (Flagyl) 500 mg in 100 mls @ 100 mls/hr IVPB Q8H [facility] PRN Reason: Protocol Last Admin: 07/12/18 05:26 Dose: 100 mls/hr Metoclopramide HCl (Reglan) 5 mg IVP Q6H [facility] Last Admin: 07/12/18 06:05 Dose: 5 mg Nystatin (Nystatin Oral Susp) 5 ml PO QID [facility] Last Admin: 07/11/18 21:21 Dose: 5 ml Ondansetron HCl (Zofran Inj) 4 mg IVP Q6H PRN PRN Reason: Nausea/Vomiting Last Admin: 07/12/18 07:53 Dose: 4 mg Pantoprazole Sodium (Protonix Inj) 40 mg IVP DAILY [facility] Last Admin: 07/11/18 09:21 Dose: 40 mg Saccharomyces Boulardii (Florastor) 250 mg PO BID [facility] Last Admin: 07/11/18 17:42 Dose: 250 mg Simethicone (Mylicon Chew Tab) 80 mg PO QID [facility] Last Admin: 07/11/18 21:21 Dose: 80 mg - Labs Labs: 07/11/18 07:09 07/11/18 07:09 - Constitutional Appears: Well, Non-toxic, No Acute Distress - ENT Exam ENT Exam: Mucous Membranes Moist - Respiratory Exam Respiratory Exam: NORMAL BREATHING PATTERN - Cardiovascular Exam Cardiovascular Exam: +S1, +S2 - GI/Abdominal Exam GI & Abdominal Exam: Soft, Tenderness. absent: Distended, Firm, Guarding, Rigid , Rebound Additional comments: mild epigastric tenderness - Neurological Exam Neurological Exam: Alert, Awake, Oriented x3 - Psychiatric Exam Psychiatric exam: Normal Affect, Normal Mood - Skin Skin Exam: Dry, Intact, Normal Color, Warm Assessment and Plan - Assessment and Plan (Free Text) Assessment: 62 yr old female with large gastric polyp Plan: - pt to be NPO after midnight - CBC, CMP, PT, PTT INR ordered - to OR in AM - d/w Dr. Orantes, all further recs per him Sofy Browne, PGY 1
[2018-07-12 08:42] LABS: BASO # 0.1 K/uL (0.0-0.2); EOS # 0.1 K/uL (0.0-0.7); LYMPH # 1.8 K/uL (1.0-4.3); LYMPH % 25.5 % (20.0-40.0); MEAN CELL VOLUME 83.7 fL (81.0-99.0); MEAN CORPUSCULAR HEMOGLOBIN 29.7 pg (27.0-31.0); MEAN CORPUSCULAR HGB CONC 35.5 g/dL (33.0-37.0); MEAN PLATELET VOLUME 7.2 fL (7.2-11.7); MONO # 0.4 K/uL (0.0-0.8); MONO % 6.5 % (0.0-10.0); NEUT # 4.6 K/uL (1.8-7.0); NRBC % 0.2 % (0.0-2.0); RBC 4.37 Mil/uL (3.80-5.20); RED CELL DISTRIBUTION WIDTH 14.2 % (11.5-14.5); WHITE BLOOD COUNT 6.9 K/uL (4.8-10.8)
[2018-07-12 09:05] LABS: ALB/GLOB RATIO 1.4 (1.0-2.1); ALBUMIN 4.2 g/dL (3.5-5.0); ALT/SGPT 47 U/L (9-52); AST/SGOT 40 U/L (14-36); BLOOD UREA NITROGEN 7 mg/dL (7-17); CALCIUM 9.3 mg/dl (8.6-10.4); GFR AFRICAN-AMERICAN > 60; GFR NON-AFRICAN AMERICAN > 60
[2018-07-12] MEDS: Enoxaparin 30 mg Syringe SC SCH (10:08)
[2018-07-12] MEDS: Calcium-Vit D 250 mg-125 Units Tab UD PO SCH ×3 (10:09→21:59)
[2018-07-12] MEDS: Nystatin 100,000 Units/ml Oral Susp 5 ml UD PO SCH ×4 (10:09→21:59)
[2018-07-12] MEDS: Simethicone 80 mg Chewtab PO SCH ×4 (10:09→21:58)
[2018-07-12] MEDS: Saccharomyces Boulardi 250 mg Cap PO SCH ×2 (10:09→18:33)
--- NOTE | 2018-07-12 17:01 | RAD ---
Date of service: 07/11/2018 HISTORY: fever COMPARISON: Chest radiograph dated 07/07/2018 TECHNIQUE: Chest PA and lateral FINDINGS: LUNGS: No active pulmonary disease. PLEURA: No significant pleural effusion identified. No pneumothorax apparent. CARDIOVASCULAR: Cardiomediastinal silhouette stably enlarged. OSSEOUS STRUCTURES: Unchanged. VISUALIZED UPPER ABDOMEN: Normal. OTHER FINDINGS: None. IMPRESSION: No active disease.
[2018-07-12] MEDS: Promethazine 6.25 MG/5 ML CUP PO SCH (17:30)
[2018-07-13 05:14] LABS: BASO # 0.1 K/uL (0.0-0.2); BASO % 0.8 % (0.0-2.0); EOS # 0.1 K/uL (0.0-0.7); EOS % 1.2 % (0.0-4.0); HEMOGLOBIN 13.1 g/dL (11.0-16.0); LYMPH # 2.3 K/uL (1.0-4.3); LYMPH % 24.1 % (20.0-40.0); MEAN CELL VOLUME 83.4 fL (81.0-99.0); MEAN CORPUSCULAR HEMOGLOBIN 28.5 pg (27.0-31.0); MEAN CORPUSCULAR HGB CONC 34.2 g/dL (33.0-37.0); MONO # 0.7 K/uL (0.0-0.8); MONO % 7.8 % (0.0-10.0); NEUT # 6.2 K/uL (1.8-7.0); NEUT % 66.1 % (50.0-75.0); NRBC % 0.2 % (0.0-2.0); RBC 4.59 Mil/uL (3.80-5.20); RED CELL DISTRIBUTION WIDTH 14.2 % (11.5-14.5); WHITE BLOOD COUNT 9.4 K/uL (4.8-10.8)
[2018-07-13 05:30] LABS: INR 1.2; PROTHROMBIN TIME 13.5 SECONDS (9.7-12.2)
[2018-07-13 06:38] LABS: ALB/GLOB RATIO 1.3 (1.0-2.1); ALT/SGPT 55 U/L (9-52); AST/SGOT 45 U/L (14-36); BLOOD UREA NITROGEN 9 mg/dL (7-17); CALCIUM 9.4 mg/dl (8.6-10.4); GFR AFRICAN-AMERICAN > 60; GFR NON-AFRICAN AMERICAN > 60
[2018-07-13] MEDS: Promethazine 6.25 MG/5 ML CUP PO SCH ×3 (07:38→18:09)
[2018-07-13] MEDS ORDERED: Midazolam 2 MG/2 ML VIAL ONE (07:49)
[2018-07-13] MEDS ORDERED: Propofol 10 mg/ml Inj (20 ML) ONE (07:49)
[2018-07-13] MEDS ORDERED: Lactated Ringer's 1,000 ML IV ONE ×2 (08:00)
--- NOTE | 2018-07-13 08:39 | PN ---
Copied To: Doris Yin MD Attending MD: Doris Yin MD DATE: 07/12/2018 LOCATION: 664, bed B. SUBJECTIVE: This is a 62-year-old female, seen and examined in rounds without significant clinical changes with intermittent period of abdominal pain. The patient is seen and fully examined and the entire chart is reviewed. Case discussed at length with the cardiovascular surgical tech, Dr. Velazquez. Today's lab is still pending and the most recent lab result showed low potassium of 3.5 with low BUN and creatinine, but blood glucose level of 128. PHYSICAL EXAMINATION: GENERAL: A 62-year-old female, awake, alert and oriented. VITAL SIGNS: Afebrile with pulse of 74, respiratory rate 20 to 22, blood pressure 170/94. HEENT: Showed pale, dry oral mucous membrane. Nonicteric sclerae. LUNGS: Few scattered crepitation. Decreased air entry at bases. HEART: Positive S1 and S2 with increased rate. ABDOMEN: Generalized mild tenderness. No mass or organomegaly. No rebound tenderness or guarding. The patient denied any episodes of diarrhea post-colonoscopy so far. EXTREMITIES: Without significant clubbing, cyanosis or edema. IMPRESSION: 1. Gastritis with large gastric polyp, for potential surgery at a.m. with upper endoscopy. 2. Recurrent urinary tract infection by recent history. 3. Episodes of hypertension recently. 4. Diverticulosis with recurrent diverticulitis diagnosed by recent colonoscopy. SUGGESTIONS: 1. Continue current management. 2. The patient for upper endoscopy at a.m. in the OR, discussed with Dr. Velazquez. We will follow up closely with you. Doris Yin MD
[2018-07-13] MEDS ORDERED: Succinylcholine Chloride 20 mg/ml Syr (5 ml) IV ONE (09:18)
[2018-07-13] MEDS ORDERED: Neostigmine Methylsulfate 3mg/3ml Syringe IV ONE (09:18)
[2018-07-13] MEDS ORDERED: Rocuronium 10 mg/ml (5 ml) ONE (09:18)
[2018-07-13] MEDS: Calcium-Vit D 250 mg-125 Units Tab UD PO SCH ×2 (10:00→18:10)
[2018-07-13] MEDS: Nystatin 100,000 Units/ml Oral Susp 5 ml UD PO SCH ×4 (10:00→21:17)
[2018-07-13] MEDS: Saccharomyces Boulardi 250 mg Cap PO SCH ×2 (10:00→18:10)
[2018-07-13] MEDS: Simethicone 80 mg Chewtab PO SCH ×4 (10:00→21:17)
--- NOTE | 2018-07-13 10:05 | PCM.SURG1 ---
Surgeon's Initial Post Op Note - Surgeon's Notes Surgeon: Caroline Hand Baseball Sewer: Matt PGY4, Shahzad Pgy4 Type of Anesthesia: General Endo Pre-Operative Diagnosis: Gastric polyp Operative Findings: pedunculated gastric polyp Post-Operative Diagnosis: same Operation Performed: EGD with gastric wedge resection Specimen/Specimens Removed: gastric wall/polyp Estimated Blood Loss: EBL {In ML}: 20 Blood Products Given: N/A Drains Used: No Drains Post-Op Condition: Good Date of Surgery/Procedure: 07/13/18 Time of Surgery/Procedure: 10:05
[2018-07-13] MEDS ORDERED: Lactated Ringer's 1,000 ML IV SCH (10:15)
[2018-07-13] MEDS: HYDROmorphone 0.5 mg/0.5 ml ISec IVP PRN ×4 (11:05→21:17)
--- NOTE | 2018-07-13 12:17 | CP.PCM.CON ---
History of Present Illness - History of Present Illness History of Present Illness: Jose Murphy, PGY1 Cardiology Consult Note for Dr. Toscano Patient is a 62 y/o female with PMHX of HTN, depression, gastritis, arthritis, obesity, osteoporosis, ADRIANA (bipap at home) who presented to the ED c/ o epigastric pain with fever, nausea, non-bilious vomiting (x2), urinary frequency for 1-2 days. Patient was diagnosed with UTI 3 months before, given antibiotics, but did not follow up with her urologist. On recent admission, patient received endoscopy and colonoscopy. Endoscopy showed medium sized hiatal hernia and a single 2 cm polyp at the greater curvature of stomach. Patient's polyp is likely contributing to her abdominal symptoms. Colonoscopy indicated diverticulosis, internal hemorrhoids, and colitis. Surgery consulted for gastric wedge resection. As per surgery team, patient was characterized as low risk for the procedure. Gastric polyp was removed without complications. Patient assessed by cardiology team in recovery phase in the PACU. Patient was not complaining of chest pain, shortness of breath, dizziness, lightheadedness. Patient still had epigastric tenderness as she had just undergone the procedure. Vital signs noted to be stable during time of interview. Patient is to be transferred back to the floor. A Full 12 point ROS was conducted and unremarkable except as stated above. From prior charting: Code Status: Full code PMD: Dr. Whittaker PMHx: hypertension, depression, gastritis, arthritis, osteoporosis, obesity, ADRIANA (on Bipap at home) PSHx: X1, Hysterectomy and Fibroid removal FHx: Father (alive, cardiomyopathy), Paternal Uncle ( Cardiomyopathy), Mother ( alive, lymphoma, DM and Osteoporosis) Medications: Atenolol 50mg PO daily, Alendronate 150mg PO daily, Ca2+ Carbonate 150mg PO QD, Protonix 40mg PO daily Allergies: NKDA Review of Systems - Review of Systems All systems: reviewed and no additional remarkable complaints except (as per HPI.) Past Patient History - Past Medical History & Family History Past Medical History?: Yes - Past Social History Smoking Status: Never Smoked - CARDIAC Hx Hypertension: Yes - PULMONARY Hx Sleep Apnea: Yes (SCHEDULED FOR SLEEP STUDY) - NEUROLOGICAL Hx Neurological Disorder: No - HEENT Hx HEENT Problems: Yes Hx Glaucoma: Yes - RENAL Hx Chronic Kidney Disease: Yes - ENDOCRINE/METABOLIC Hx Endocrine Disorders: No - HEMATOLOGICAL/ONCOLOGICAL Hx Blood Disorders: No - INTEGUMENTARY Hx Dermatological Problems: No - MUSCULOSKELETAL/RHEUMATOLOGICAL Hx Falls: No Hx Osteoporosis: Yes - GASTROINTESTINAL Hx Gastrointestinal Disorders: Yes Hx Gastroesophageal Reflux: Yes - GENITOURINARY/GYNECOLOGICAL Hx Genitourinary Disorders: No - PSYCHIATRIC Hx Anxiety: Yes Hx Depression: Yes Hx Substance Use: No - SURGICAL HISTORY Hx Surgeries: Yes Hx Eye Surgery: Yes Hx Hysterectomy: Yes - ANESTHESIA Hx Anesthesia: Yes Hx Anesthesia Reactions: No Hx Malignant Hyperthermia: No Meds Allergies/Adverse Reactions: Allergies Allergy/AdvReac Type Severity Reaction Status Date / Time No Known Allergies Allergy Verified 07/07/18 15:32 - Medications Medications: Current Medications Acetaminophen (Tylenol 325mg Tab) 650 mg PO Q6 PRN PRN Reason: Fever >100.4 F Last Admin: 07/11/18 09:20 Dose: 650 mg Alprazolam (Xanax) 0.5 mg PO BID PRN PRN Reason: Anxiety Last Admin: 07/12/18 21:59 Dose: 0.5 mg Amlodipine Besylate (Norvasc) 5 mg PO DAILY [facility] Last Admin: 07/13/18 10:00 Dose: Not Given Atenolol (Tenormin) 50 mg PO DAILY [facility] Last Admin: 07/13/18 11:50 Dose: Not Given Calcium/Vitamin D (Oscal-D 250 Mg-125 Units Tab) 1 tab PO BID [facility] Last Admin: 07/13/18 10:00 Dose: Not Given Enoxaparin Sodium (Lovenox) 30 mg SC DAILY [facility] Last Admin: 07/12/18 10:08 Dose: 30 mg Home Med (Patient's Own Medication) 1 tab PO Q24H [facility] Last Admin: 07/12/18 14:07 Dose: 1 tab Hydromorphone HCl (Dilaudid) 0.25 mg IVP Q10M PRN PRN Reason: Pain, moderate (4-7) Stop: 07/13/18 12:10 Last Admin: 07/13/18 11:35 Dose: 0.25 mg Lactated Ringer's (Lactated Ringer's) 1,000 mls @ 120 mls/hr IV .Q8H20M [facility] Metoclopramide HCl (Reglan) 5 mg IVP Q6H [facility] Last Admin: 07/13/18 06:14 Dose: 5 mg Nystatin (Nystatin Oral Susp) 5 ml PO QID [facility] Last Admin: 07/13/18 10:00 Dose: Not Given Ondansetron HCl (Zofran Inj) 4 mg IVP Q6H PRN PRN Reason: Nausea/Vomiting Last Admin: 07/12/18 07:53 Dose: 4 mg Pantoprazole Sodium (Protonix Inj) 40 mg IVP DAILY [facility] Last Admin: 07/13/18 10:00 Dose: Not Given Promethazine HCl (Phenergan Syrup) 6.25 mg PO TIDAC [facility] Last Admin: 07/13/18 11:50 Dose: Not Given Saccharomyces Boulardii (Florastor) 250 mg PO BID [facility] Last Admin: 07/13/18 10:00 Dose: Not Given Simethicone (Mylicon Chew Tab) 80 mg PO QID [facility] Last Admin: 07/13/18 10:00 Dose: Not Given Physical Exam - Constitutional Appears: Well, No Acute Distress - Head Exam Head Exam: ATRAUMATIC, NORMAL INSPECTION, NORMOCEPHALIC - Eye Exam Eye Exam: EOMI, Normal appearance, PERRL - ENT Exam ENT Exam: Mucous Membranes Moist, Normal Exam Additional comments: NG Tube in place s/p EGD with gastric wedge resection (2 cm gastric polyp). - Neck Exam Neck exam: Positive for: Normal Inspection - Respiratory Exam Respiratory Exam: Clear to Auscultation Bilateral, NORMAL BREATHING PATTERN. absent: Accessory Muscle Use, Chest Wall Tenderness, Rales, Rhonchi, Wheezes, Respiratory Distress - Cardiovascular Exam Cardiovascular Exam: REGULAR RHYTHM, +S1, +S2 - GI/Abdominal Exam GI & Abdominal Exam: Normal Bowel Sounds, Soft, Tenderness. absent: Distended, Firm, Guarding - Extremities Exam Extremities exam: Positive for: normal inspection - Back Exam Back exam: NORMAL INSPECTION - Neurological Exam Neurological exam: Alert, Oriented x3 - Skin Skin Exam: Dry, Intact, Normal Color, Warm Results - Vital Signs Recent Vital Signs: Last Vital Signs Temp 97.3 F L 07/13/18 11:35 Pulse 73 07/13/18 11:45 Resp 26 H 07/13/18 11:45 BP 150/89 07/13/18 11:45 Pulse Ox 100 07/13/18 11:45 - Labs Result Diagrams: 07/13/18 05:10 07/13/18 05:10 Labs: Laboratory Results - last 24 hr 07/12/18 07/13/18 07/13/18 08:28 05:10 05:10 WBC 9.4 RBC 4.59 Hgb 13.1 Hct 38.2 MCV 83.4 MCH 28.5 MCHC 34.2 RDW 14.2 Plt Count 288 MPV 7.0 L Neut % (Auto) 66.1 Lymph % (Auto) 24.1 Barren % (Auto) 7.8 Eos % (Auto) 1.2 Baso % (Auto) 0.8 Neut # (Auto) 6.2 Lymph # (Auto) 2.3 Barren # (Auto) 0.7 Eos # (Auto) 0.1 Baso # (Auto) 0.1 PT INR APTT Sodium 142 Potassium 3.6 Chloride 104 Carbon Dioxide 28 Anion Gap 14 BUN 9 Creatinine 0.7 Est GFR ( Amer) > 60 Est GFR (Non-Af Amer) > 60 Random Glucose 122 H Calcium 9.4 Phosphorus 4.1 Magnesium 1.9 Total Bilirubin 0.7 AST 45 H ALT 55 H Alkaline Phosphatase 60 Total Protein 7.0 Albumin 4.0 Globulin 3.0 Albumin/Globulin Ratio 1.3 HIV 1&2 Antibody Screen Negative Blood Type Blood Type Confirm Antibody Screen 07/13/18 07/13/18 05:10 05:10 WBC RBC Hgb Hct MCV MCH MCHC RDW Plt Count MPV Neut % (Auto) Lymph % (Auto) Barren % (Auto) Eos % (Auto) Baso % (Auto) Neut # (Auto) Lymph # (Auto) Barren # (Auto) Eos # (Auto) Baso # (Auto) PT 13.5 H INR 1.2 APTT 30 Sodium Potassium Chloride Carbon Dioxide Anion Gap BUN Creatinine Est GFR ( Amer) Est GFR (Non-Af Amer) Random Glucose Calcium Phosphorus Magnesium Total Bilirubin AST ALT Alkaline Phosphatase Total Protein Albumin Globulin Albumin/Globulin Ratio HIV 1&2 Antibody Screen Blood Type A NEGATIVE Blood Type Confirm A NEGATIVE Antibody Screen Negative Assessment & Plan - Assessment and Plan (Free Text) Assessment: Patient is a 62 y/o female with PMHX of HTN, depression, gastritis, arthritis, obesity, osteoporosis, ADRIANA (bipap at home) who presented to the ED c/ o epigastric pain with fever, nausea, non-bilious vomiting (x2), urinary frequency for 1-2 days. Endoscopy revealed medium sized hiatal hernia and a single 2 cm polyp at the greater curvature of stomach likely contributing to patient's GI complaints. Surgery consulted for removal of gastric polyp, in which they deemed patient was low risk for procedure. Patient tolerated procedure well with no complications. Jacinto-operative evaluation by the cardiology team was conducted in the PACU. Plan: Epigastric pain likely 2/2 Gastric Polyp - Endoscopy: medium sized hiatal hernia. Single 2cm polyp at the greater curvature of stomach. Negative H. Pylori; Bx during EGD (likely benign). - Patient tolerated gastric wedge resection (2 cm polyp removal) well; as deemed by surgery, low risk procedure. - Assessed by Cardiology team jacinto-operatively in PACU - As per ACC/AHA Pre-operative cardiac risk guidelines, patient is at low- intermediate risk. However, patient does have risk factors (HTN, obesity, ADRIANA, advanced age), and requires echo and ekg for further evaluation. - f/u ECHO - f/u EKG - c/w antibiotic coverage HTN - c/w home medications - c/w Atenolol 50 mg PO daily - Monitor BP on the floor; maintain normal BP - Maintain MAP > 65 ADRIANA - c/w BiPAP at night - Maintain SaO2 > 92% GI ppx: Protonix 40mg IV daily, Florastor 250 mg PO BID DVT ppx: SCDs and Lovenox 40mg SC daily Dispo: Patient doing well s/p gastric wedge resection (2 cm gastric polyp removal). Continue to monitor on the floor. Case was discussed and reviewed with Rv Service Technician Dr. Toscano.
[2018-07-13] MEDS: Lactated Ringer's 1,000 ML IV SCH ×2 (13:11→21:16)
--- NOTE | 2018-07-13 14:35 | CP.PCM.PN ---
Subjective - Date & Time of Evaluation Date of Evaluation: 07/13/18 Time of Evaluation: 12:00 - Subjective Subjective: PGY-1 Bouchra Haywood D.O. Medicine service note for Dr. Powers's service: Patient seen and examined post-op. She was not in any acute distress. She states she is having abdominal pain. She has an NGT in place. Discussed with surgeon, Dr. Velazquez- procedure went well, gastric wedge resection was done, frozen section of polyp was benign (hyperplastic). Objective - Vital Signs/Intake and Output Vital Signs (last 24 hours): Temp Pulse Resp BP Pulse Ox 97.5 F L 70 20 161/93 H 96 07/13/18 12:44 07/13/18 12:44 07/13/18 12:44 07/13/18 12:44 07/13/18 12:44 Intake and Output: 07/13/18 07/13/18 06:59 18:59 Output Total 5 Balance -5 - Medications Medications: Current Medications Acetaminophen (Tylenol 325mg Tab) 650 mg PO Q6 PRN PRN Reason: Fever >100.4 F Last Admin: 07/11/18 09:20 Dose: 650 mg Alprazolam (Xanax) 0.5 mg PO BID PRN PRN Reason: Anxiety Last Admin: 07/12/18 21:59 Dose: 0.5 mg Amlodipine Besylate (Norvasc) 5 mg PO DAILY [facility] Last Admin: 07/13/18 13:10 Dose: 5 mg Atenolol (Tenormin) 50 mg PO DAILY [facility] Last Admin: 07/13/18 11:50 Dose: Not Given Calcium/Vitamin D (Oscal-D 250 Mg-125 Units Tab) 1 tab PO BID [facility] Last Admin: 07/13/18 10:00 Dose: Not Given Enoxaparin Sodium (Lovenox) 30 mg SC DAILY [facility] Last Admin: 07/12/18 10:08 Dose: 30 mg Home Med (Patient's Own Medication) 1 tab PO Q24H [facility] Last Admin: 07/13/18 13:10 Dose: 1 tab Hydromorphone HCl (Dilaudid) 0.5 mg IVP Q4H PRN PRN Reason: Pain, moderate (4-7) Last Admin: 07/13/18 13:27 Dose: 0.5 mg Lactated Ringer's (Lactated Ringer's) 1,000 mls @ 120 mls/hr IV .Q8H20M [facility] Last Admin: 07/13/18 13:11 Dose: 120 mls/hr Metoclopramide HCl (Reglan) 5 mg IVP Q6H [facility] Last Admin: 07/13/18 13:07 Dose: Not Given Nystatin (Nystatin Oral Susp) 5 ml PO QID [facility] Last Admin: 07/13/18 13:14 Dose: 5 ml Ondansetron HCl (Zofran Inj) 4 mg IVP Q6H PRN PRN Reason: Nausea/Vomiting Last Admin: 07/12/18 07:53 Dose: 4 mg Pantoprazole Sodium (Protonix Inj) 40 mg IVP DAILY [facility] Last Admin: 07/13/18 10:00 Dose: Not Given Promethazine HCl (Phenergan Syrup) 6.25 mg PO TIDAC [facility] Last Admin: 07/13/18 11:50 Dose: Not Given Saccharomyces Boulardii (Florastor) 250 mg PO BID [facility] Last Admin: 07/13/18 10:00 Dose: Not Given Simethicone (Mylicon Chew Tab) 80 mg PO QID [facility] Last Admin: 07/13/18 13:14 Dose: 80 mg - Labs Labs: 07/13/18 05:10 07/13/18 05:10 PT 13.5 SECONDS (9.7-12.2) H 07/13/18 05:10 INR 1.2 07/13/18 05:10 APTT 30 SECONDS (21-34) 07/13/18 05:10 - Constitutional Appears: Well, Non-toxic, No Acute Distress - Head Exam Head Exam: ATRAUMATIC, NORMAL INSPECTION, NORMOCEPHALIC - Eye Exam Eye Exam: EOMI, Normal appearance - ENT Exam ENT Exam: Mucous Membranes Moist, Normal Exam Additional comments: NGT in place in left nare - Neck Exam Neck Exam: Normal Inspection - Respiratory Exam Respiratory Exam: Clear to Ausculation Bilateral, NORMAL BREATHING PATTERN - Cardiovascular Exam Cardiovascular Exam: REGULAR RHYTHM. absent: Murmur - GI/Abdominal Exam GI & Abdominal Exam: Hypoactive Bowel Sounds Additional comments: bandages above umbilicus s/p gastric wedge resection/polypectomy - Rectal Exam Rectal Exam: Deferred - Extremities Exam Extremities Exam: Normal Capillary Refill, Normal Inspection. absent: Pedal Edema, Tenderness - Back Exam Back Exam: NORMAL INSPECTION - Neurological Exam Neurological Exam: Alert, Awake, Oriented x3 - Psychiatric Exam Psychiatric exam: Normal Affect, Normal Mood - Skin Skin Exam: Dry, Intact, Normal Color, Warm Assessment and Plan - Assessment and Plan (Free Text) Assessment: Patient is a 62 yo female with past medical history of hypertension, depression, gastritis, arthritis, osteoporosis, sleep apnea on Bipap who presented with epigastric/lower abdominal pain with associated symptoms of fever , nausea, non-bilious vomiting, diarrhea, and urinary frequency x1-2 days. EGD found gastric polyp. Colonoscopy revealed colitis and spastic colon. Patient s/ p gastric wedge resection/polypectomy (07/13/18). Plan: Gastric polyp s/p gastric wedge resection/polypectomy- 2 cm, hyperplastic - Biopsied during EGD- negative, no H. pylori - Gen surg consulted (Dr. Velazquez)- gastric wedge resection/polypectomy done Friday 07/13 - NGT- low intermittent suctioning - Dilaudid 0.5 mg IV q4hrs PRN - PT consult Gastritis and colitis, acute - EGD 07/08: Bx gastric polyp negative for H. pylori - Colonoscopy 07/09: colitis, spastic colon - C diff neg - Stool leukocytes neg - Stool O&P neg - HIV neg - Reglan 5 mg IV q6hrs - Simethicone 80 mg PO QID - Discontinue Cipro and Flagyl - Start Nystatin 5 mL QID for oral thrush - ID consulted (Dr. Weems) Sepsis, acute, resolved- 2/2 gastritis/colitis - On admission: temp 102.8, HR 110 - Most recent fever 100.4 on 07/11 @ 9:20 AM - Repeat clean catch UA negative - Tylenol 650mg PO q6hrs PRN - Discontinue Rocephin, cipro, Flagyl - Blood Cx negative >5 days - Stool Cx negative - CT A/P 07/07: no acute findings Vomiting, acute, resolved - Zofran 4mg IV Q6H PRN - NS @ 100 mL/hr Osteoporosis, chronic, stable - Continue home Calcium Carbonate 1 tab PO BID - Hold Alendronate 150mg PO daily due to possible GI side effects HTN, chronic, stable - Vitals q4hrs - Continue home Atenolol 50mg PO daily - Cardio consuled ([facility]) - F/u echo Anxiety - Trintellix 10 mg PO qhs - Xanax 0.5 mg BID prn IVF: LR @ 120 GI ppx: Protonix 40mg IV daily, Florastor 250 mg PO BID VTE ppx: SCDs, Lovenox 30mg SC daily Diet: NPO Code status: full code
--- NOTE | 2018-07-13 18:59 | OP ---
PROCEDURE DATE: 07/13/2018 PREOPERATIVE DIAGNOSIS: Gastric polyp. POSTOPERATIVE DIAGNOSIS: Gastric polyp, hyperplastic on frozen section. PROCEDURE: Partial gastrectomy/wedge resection of lesser curvature. SURGEON: Allan Velazquez Jr, MD ACCESS REPRESENTATIVE: Job Gutierrez DO and Angela Pike DO. ANESTHESIOLOGIST: Elmer Coreas MD INDICATION FOR PROCEDURE: The patient is an older middle-aged woman with variety of medical problems, presenting found to have a large gastric polyp. concern was raised regarding endoscopic removal. OPERATIVE FINDINGS: Dr. Loya performed an endoscopy at the beginning of the procedure after the abdomen was open and confirmed that the lesion was a palpable lesion on the lesser curvature. we then placed the marking suture here. We then opened the stomach in a longitudinal fashion, excised the adjacent area and then stapled the shunt with a GA30 stapler. The rest of the abdominal exploration did not show anything of any particular abnormalities. We then closed the abdomen with running suture of _ PDS, closed the skin with skin clips. Dr. Ribeiro, the pathologist, reviewed the specimen and felt that this represented a hyperplastic polyp. The procedure was then terminated. The abdomen was closed. An NG tube was left in the stomach. OPERATION CARRIED OUT: Partial gastrostomy/wedge resection of the stomach. Allan Velazquez Jr., MD [facility]DM[facility]
--- NOTE | 2018-07-13 21:20 | CP.PCM.PN ---
Subjective - Date & Time of Evaluation Date of Evaluation: 07/13/18 Time of Evaluation: 19:00 - Subjective Subjective: dictated Objective - Vital Signs/Intake and Output Vital Signs (last 24 hours): Temp Pulse Resp BP Pulse Ox 98.3 F 71 20 151/90 H 95 07/13/18 15:49 07/13/18 15:49 07/13/18 15:49 07/13/18 15:49 07/13/18 15:49 Intake and Output: 07/13/18 07/14/18 18:59 06:59 Intake Total 480 Output Total 5 100 Balance -5 380 - Medications Medications: Current Medications Acetaminophen (Tylenol 325mg Tab) 650 mg PO Q6 PRN PRN Reason: Fever >100.4 F Last Admin: 07/11/18 09:20 Dose: 650 mg Alprazolam (Xanax) 0.5 mg PO BID PRN PRN Reason: Anxiety Last Admin: 07/12/18 21:59 Dose: 0.5 mg Amlodipine Besylate (Norvasc) 5 mg PO DAILY [facility] Last Admin: 07/13/18 13:10 Dose: 5 mg Atenolol (Tenormin) 50 mg PO DAILY [facility] Last Admin: 07/13/18 11:50 Dose: Not Given Calcium/Vitamin D (Oscal-D 250 Mg-125 Units Tab) 1 tab PO BID [facility] Last Admin: 07/13/18 18:10 Dose: 1 tab Enoxaparin Sodium (Lovenox) 30 mg SC DAILY [facility] Last Admin: 07/12/18 10:08 Dose: 30 mg Home Med (Patient's Own Medication) 1 tab PO Q24H [facility] Last Admin: 07/13/18 13:10 Dose: 1 tab Hydromorphone HCl (Dilaudid) 0.5 mg IVP Q4H PRN PRN Reason: Pain, moderate (4-7) Last Admin: 07/13/18 21:17 Dose: 0.5 mg Lactated Ringer's (Lactated Ringer's) 1,000 mls @ 120 mls/hr IV .Q8H20M [facility] Last Admin: 07/13/18 21:16 Dose: 120 mls/hr Metoclopramide HCl (Reglan) 5 mg IVP Q6H [facility] Last Admin: 07/13/18 18:10 Dose: 5 mg Nystatin (Nystatin Oral Susp) 5 ml PO QID [facility] Last Admin: 07/13/18 21:17 Dose: 5 ml Ondansetron HCl (Zofran Inj) 4 mg IVP Q6H PRN PRN Reason: Nausea/Vomiting Last Admin: 07/12/18 07:53 Dose: 4 mg Pantoprazole Sodium (Protonix Inj) 40 mg IVP DAILY [facility] Last Admin: 07/13/18 10:00 Dose: Not Given Promethazine HCl (Phenergan Syrup) 6.25 mg PO TIDAC [facility] Last Admin: 07/13/18 18:09 Dose: 6.25 mg Saccharomyces Boulardii (Florastor) 250 mg PO BID [facility] Last Admin: 07/13/18 18:10 Dose: 250 mg Simethicone (Mylicon Chew Tab) 80 mg PO QID [facility] Last Admin: 07/13/18 21:17 Dose: 80 mg - Labs Labs: 07/13/18 05:10 07/13/18 05:10 PT 13.5 SECONDS (9.7-12.2) H 07/13/18 05:10 INR 1.2 07/13/18 05:10 APTT 30 SECONDS (21-34) 07/13/18 05:10
--- NOTE | 2018-07-13 22:58 | PN ---
Copied To: Andie Weems MD Attending MD: Andie Weems MD DATE: 07/13/2018 SUBJECTIVE: The patient had a surgery done today. She had a pedunculated gastric polyp. They did an EGD with gastric wedge resection. I went to see her. She was lying postop with NG tube, and she was n.p.o. The patient denied any pains and was not in any distress. She had an NG tube in place, and she has a dressing on the abdominal wall which appeared with some blood tinged on the dressing. PHYSICAL EXAMINATION: VITAL SIGNS: On examination now, I find her T-max was 98.3 right now, pulse 71, blood pressure was 151/90, respirations are 20. HEENT: Head is atraumatic, normocephalic. NG tube present. Tongue was dry. NECK: Supple. JVP flat. LUNGS: Clear. No crackles or rales heard. No wheezing present. No rhonchi. HEART: S1, S2 are regular. No murmurs present. ABDOMEN: Had a midline dressing present. It was some blood tinged on there. EXTREMITIES: Had no edema, clubbing, or cyanosis present. LABORATORY DATA: Labs were noted. Labs show white count 9.4, hemoglobin 13.1, hematocrit 38.2, platelet count is 288. She denied any fevers for the last two to three days. Sodium was 142, potassium 3.6, chlorides are 104, BUN is 9, and creatinine 0.7. Micro santo, urine culture was negative, blood cultures x2 were negative from 07/11/2018. Most of the cultures are negative. ASSESSMENT AND PLAN: It was unclear why she was having fevers. She is on Lovenox and she is on Dilaudid, Ringer's lactate, Reglan, nystatin, calcium, and atenolol. She is off antibiotics at this time. We will follow. Andie Weems MD
[2018-07-14] MEDS: Lactated Ringer's 1,000 ML IV SCH ×3 (02:45→11:41)
[2018-07-14 08:25] LABS: BASO % 0.3 % (0.0-2.0); EOS % 0.3 % (0.0-4.0); HEMOGLOBIN 13.1 g/dL (11.0-16.0); LYMPH # 2.1 K/uL (1.0-4.3); LYMPH % 19.2 % (20.0-40.0); MEAN CELL VOLUME 84.3 fL (81.0-99.0); MEAN CORPUSCULAR HEMOGLOBIN 29.7 pg (27.0-31.0); MEAN CORPUSCULAR HGB CONC 35.2 g/dL (33.0-37.0); MEAN PLATELET VOLUME 7.4 fL (7.2-11.7); MONO % 9.1 % (0.0-10.0); NEUT # 7.7 K/uL (1.8-7.0); NEUT % 71.1 % (50.0-75.0); NRBC % 0.1 % (0.0-2.0); RBC 4.43 Mil/uL (3.80-5.20); RED CELL DISTRIBUTION WIDTH 14.4 % (11.5-14.5); WHITE BLOOD COUNT 10.8 K/uL (4.8-10.8)
[2018-07-14] MEDS: Promethazine 6.25 MG/5 ML CUP PO SCH ×3 (08:30→16:31)
[2018-07-14 08:34] LABS: ALB/GLOB RATIO 1.3 (1.0-2.1); ALBUMIN 4.1 g/dL (3.5-5.0); ALT/SGPT 54 U/L (9-52); AST/SGOT 38 U/L (14-36); BLOOD UREA NITROGEN 9 mg/dL (7-17); CALCIUM 9.1 mg/dl (8.6-10.4); GFR AFRICAN-AMERICAN > 60; GFR NON-AFRICAN AMERICAN > 60
[2018-07-14] MEDS: Saccharomyces Boulardi 250 mg Cap PO SCH ×2 (09:24→17:47)
[2018-07-14] MEDS: Calcium-Vit D 250 mg-125 Units Tab UD PO SCH ×2 (09:24→17:47)
[2018-07-14] MEDS: Enoxaparin 30 mg Syringe SC SCH (09:25)
[2018-07-14] MEDS: Simethicone 80 mg Chewtab PO SCH ×4 (09:25→21:12)
[2018-07-14] MEDS: HYDROmorphone 0.5 mg/0.5 ml ISec IVP PRN ×3 (09:28→19:23)
--- NOTE | 2018-07-14 09:31 | CP.PCM.PN ---
Subjective - Date & Time of Evaluation Date of Evaluation: 07/14/18 Time of Evaluation: 09:20 - Subjective Subjective: PGY-1 Bouchra Haywood D.O. Medicine service note for Dr. Powers's service: Patient was seen and examined this morning. She is POD1. Surgery removed the NGT. Patient is still NPO because she has not yet had flatus or BM. Patient is complaining of a sore throat and abdominal pain. Patient also expresses anxiety about going home too soon. Discussed with patient that her procedure went well and her recovery plan will be thoroughly explained to her prior to discharge. Patient has Pace cath in place. Apparently she had urinary retention following surgery and had to have straight cath x2. Surgery would like to leave in Pace x24 hrs. Patient's BP has been elevated- likely 2/2 to a combination of pain, Dilaudid, and anxiety. Objective - Vital Signs/Intake and Output Vital Signs (last 24 hours): Temp Pulse Resp BP Pulse Ox 98.9 F 88 20 167/104 H 96 07/14/18 07:00 07/14/18 07:00 07/14/18 07:00 07/14/18 07:00 07/14/18 07:00 Intake and Output: 07/14/18 07/14/18 06:59 18:59 Intake Total 2400 Output Total 1450 Balance 950 - Medications Medications: Current Medications Acetaminophen (Tylenol 325mg Tab) 650 mg PO Q6 PRN PRN Reason: Fever >100.4 F Last Admin: 07/11/18 09:20 Dose: 650 mg Alprazolam (Xanax) 0.5 mg PO BID PRN PRN Reason: Anxiety Last Admin: 07/12/18 21:59 Dose: 0.5 mg Amlodipine Besylate (Norvasc) 5 mg PO DAILY [facility] Last Admin: 07/13/18 13:10 Dose: 5 mg Atenolol (Tenormin) 50 mg PO DAILY [facility] Last Admin: 07/13/18 11:50 Dose: Not Given Benzocaine/Menthol (Cepacol Sore Throat) 1 angel [place]uis [place] Q4H PRN PRN Reason: Sore Throat Calcium/Vitamin D (Oscal-D 250 Mg-125 Units Tab) 1 tab PO BID [facility] Last Admin: 07/13/18 18:10 Dose: 1 tab Enoxaparin Sodium (Lovenox) 30 mg SC DAILY [facility] Last Admin: 07/12/18 10:08 Dose: 30 mg Home Med (Patient's Own Medication) 1 tab PO Q24H [facility] Last Admin: 07/13/18 13:10 Dose: 1 tab Hydromorphone HCl (Dilaudid) 0.5 mg IVP Q4H PRN PRN Reason: Pain, moderate (4-7) Last Admin: 07/13/18 21:17 Dose: 0.5 mg Lactated Ringer's (Lactated Ringer's) 1,000 mls @ 120 mls/hr IV .Q8H20M [facility] Last Admin: 07/14/18 06:41 Dose: 120 mls/hr Metoclopramide HCl (Reglan) 5 mg IVP Q6H [facility] Last Admin: 07/14/18 07:45 Dose: 5 mg Nystatin (Nystatin Oral Susp) 5 ml PO QID [facility] Last Admin: 07/13/18 21:17 Dose: 5 ml Ondansetron HCl (Zofran Inj) 4 mg IVP Q6H PRN PRN Reason: Nausea/Vomiting Last Admin: 07/12/18 07:53 Dose: 4 mg Pantoprazole Sodium (Protonix Inj) 40 mg IVP DAILY [facility] Last Admin: 07/13/18 10:00 Dose: Not Given Promethazine HCl (Phenergan Syrup) 6.25 mg PO TIDAC [facility] Last Admin: 07/13/18 18:09 Dose: 6.25 mg Saccharomyces Boulardii (Florastor) 250 mg PO BID [facility] Last Admin: 07/13/18 18:10 Dose: 250 mg Simethicone (Mylicon Chew Tab) 80 mg PO QID [facility] Last Admin: 07/13/18 21:17 Dose: 80 mg - Labs Labs: 07/14/18 08:15 07/14/18 08:15 PT 13.5 SECONDS (9.7-12.2) H 07/13/18 05:10 INR 1.2 07/13/18 05:10 APTT 30 SECONDS (21-34) 07/13/18 05:10 - Constitutional Appears: Well, No Acute Distress - Head Exam Head Exam: ATRAUMATIC, NORMAL INSPECTION, NORMOCEPHALIC - Eye Exam Eye Exam: EOMI, Normal appearance - ENT Exam ENT Exam: Mucous Membranes Moist, Normal Exam Additional comments: oral thrush on tongue - Neck Exam Neck Exam: Normal Inspection - Respiratory Exam Respiratory Exam: Clear to Ausculation Bilateral, NORMAL BREATHING PATTERN - Cardiovascular Exam Cardiovascular Exam: REGULAR RHYTHM, +S1, +S2. absent: Murmur - GI/Abdominal Exam GI & Abdominal Exam: Soft, Tenderness, Hypoactive Bowel Sounds Additional comments: bandages above umbilicus s/p gastric wedge resection/polypectomy - Rectal Exam Rectal Exam: Deferred - Extremities Exam Extremities Exam: Normal Capillary Refill, Normal Inspection. absent: Pedal Edema - Back Exam Back Exam: NORMAL INSPECTION - Neurological Exam Neurological Exam: Alert, Awake, Oriented x3 - Psychiatric Exam Psychiatric exam: Anxious - Skin Skin Exam: Dry, Intact, Normal Color, Warm Assessment and Plan - Assessment and Plan (Free Text) Assessment: Patient is a 62 yo female with past medical history of hypertension, depression, gastritis, arthritis, osteoporosis, sleep apnea on Bipap who presented with epigastric/lower abdominal pain with associated symptoms of fever , nausea, non-bilious vomiting, diarrhea, and urinary frequency x1-2 days. EGD found gastric polyp. Colonoscopy revealed colitis and spastic colon. Patient s/ p gastric wedge resection/polypectomy (07/13/18). Plan: Gastric polyp s/p gastric wedge resection/polypectomy (2 cm, hyperplastic)- POD1 - Biopsied during EGD- negative, no H. pylori - Gen surg consulted (Dr. Velazquez)- gastric wedge resection/polypectomy done Friday 07/13 - NGT removed - NPO- no flatus or BM yet - Dilaudid 0.5 mg IV q4hrs PRN - PT consult- rec TCU Urinary retention, acute- post anesthesia - Straight cath x2- 1000 mL, 350 mL - Pace cath x24hrs- 1500 mL HTN, chronic, worsening- suspect 2/2 pain, Dilaudid, anxiety - Vitals q4hrs - Continue home Atenolol 50mg PO daily - Start Norvasc 5 mg PO daily - Cardio consulted ([facility]) - F/u echo Gastritis and colitis, acute, resolved - EGD 07/08: Bx gastric polyp negative for H. pylori - Colonoscopy 07/09: colitis, spastic colon - C diff neg - Stool leukocytes neg - Stool O&P neg - HIV neg - Reglan 5 mg IV q6hrs - Simethicone 80 mg PO QID - Discontinued Cipro and Flagyl - Start Nystatin 5 mL QID for oral thrush - ID consulted (Dr. Weems) Sepsis, acute, resolved- 2/2 gastritis/colitis - On admission: temp 102.8, HR 110 - Most recent fever 100.4 on 07/11 @ 9:20 AM - Repeat clean catch UA negative - Tylenol 650mg PO q6hrs PRN - Discontinued Rocephin, cipro, Flagyl - Blood Cx negative >5 days, repeat neg >3 days - Stool Cx negative - CT A/P 07/07: no acute findings Vomiting, acute, resolved - Zofran 4mg IV Q6H PRN Osteoporosis, chronic, stable - Continue home Calcium Carbonate 1 tab PO BID - Hold Alendronate 150mg PO daily due to possible GI side effects Anxiety - Trintellix 10 mg PO qhs - Xanax 0.5 mg BID prn IVF: KCL 20 mEq/D5/NS @ 120 GI ppx: Protonix 40mg IV daily, Florastor 250 mg PO BID VTE ppx: SCDs, Lovenox 30mg SC daily Diet: NPO Code status: full code
[2018-07-14] MEDS: Nystatin 100,000 Units/ml Oral Susp 5 ml UD PO SCH ×4 (10:41→21:12)
--- NOTE | 2018-07-14 10:51 | CP.PCM.PN ---
Subjective - Date & Time of Evaluation Date of Evaluation: 07/14/18 Time of Evaluation: 10:00 - Subjective Subjective: Jose Murphy, PGY1 Cardiology Progress Note for Dr. Toscano Patient was seen and examined at bedside this morning. Patient denied lightheadedness, dizziness, chest pain, palpitations, shortness of breath, nausea, vomiting, diarrhea. Patient still endorses mild epigastric tenderness. Patient's BP was noted to be 167/104. Patient says that she has been on her Atenolol home medication for 10 years. She does not see a new grad rn; she only follows up with her PMD. No changes overnight. Patient just received echocardiogram prior to interview. A full 12 point ROS was conducted and unremarkable except as stated above. Objective - Vital Signs/Intake and Output Vital Signs (last 24 hours): Temp Pulse Resp BP Pulse Ox 98.9 F 88 20 167/104 H 96 07/14/18 07:00 07/14/18 07:00 07/14/18 07:00 07/14/18 07:00 07/14/18 07:00 Intake and Output: 07/14/18 07/14/18 06:59 18:59 Intake Total 2400 Output Total 1450 Balance 950 - Medications Medications: Current Medications Acetaminophen (Tylenol 325mg Tab) 650 mg PO Q6 PRN PRN Reason: Fever >100.4 F Last Admin: 07/11/18 09:20 Dose: 650 mg Alprazolam (Xanax) 0.5 mg PO BID PRN PRN Reason: Anxiety Last Admin: 07/12/18 21:59 Dose: 0.5 mg Amlodipine Besylate (Norvasc) 5 mg PO DAILY [facility] Last Admin: 07/14/18 09:33 Dose: 5 mg Atenolol (Tenormin) 50 mg PO DAILY [facility] Last Admin: 07/14/18 09:23 Dose: 50 mg Benzocaine/Menthol (Cepacol Sore Throat) 1 angel luis [place] Q4H PRN PRN Reason: Sore Throat Calcium/Vitamin D (Oscal-D 250 Mg-125 Units Tab) 1 tab PO BID [facility] Last Admin: 07/14/18 09:24 Dose: 1 tab Enoxaparin Sodium (Lovenox) 30 mg SC DAILY [facility] Last Admin: 07/14/18 09:25 Dose: 30 mg Home Med (Patient's Own Medication) 1 tab PO Q24H [facility] Last Admin: 07/13/18 13:10 Dose: 1 tab Hydromorphone HCl (Dilaudid) 0.5 mg IVP Q4H PRN PRN Reason: Pain, moderate (4-7) Last Admin: 07/14/18 09:28 Dose: 0.5 mg Lactated Ringer's (Lactated Ringer's) 1,000 mls @ 120 mls/hr IV .Q8H20M [facility] Last Admin: 07/14/18 06:41 Dose: 120 mls/hr Metoclopramide HCl (Reglan) 5 mg IVP Q6H [facility] Last Admin: 07/14/18 07:45 Dose: 5 mg Nystatin (Nystatin Oral Susp) 5 ml PO QID [facility] Last Admin: 07/14/18 10:41 Dose: Not Given Ondansetron HCl (Zofran Inj) 4 mg IVP Q6H PRN PRN Reason: Nausea/Vomiting Last Admin: 07/12/18 07:53 Dose: 4 mg Pantoprazole Sodium (Protonix Inj) 40 mg IVP DAILY [facility] Last Admin: 07/14/18 09:23 Dose: 40 mg Promethazine HCl (Phenergan Syrup) 6.25 mg PO TIDAC [facility] Last Admin: 07/14/18 08:30 Dose: Not Given Saccharomyces Boulardii (Florastor) 250 mg PO BID [facility] Last Admin: 07/14/18 09:24 Dose: 250 mg Simethicone (Mylicon Chew Tab) 80 mg PO QID [facility] Last Admin: 07/14/18 09:25 Dose: Not Given - Labs Labs: 07/14/18 08:15 07/14/18 08:15 PT 13.5 SECONDS (9.7-12.2) H 07/13/18 05:10 INR 1.2 07/13/18 05:10 APTT 30 SECONDS (21-34) 07/13/18 05:10 - Constitutional Appears: Well - Head Exam Head Exam: ATRAUMATIC, NORMAL INSPECTION, NORMOCEPHALIC - Eye Exam Eye Exam: EOMI, Normal appearance, PERRL Pupil Exam: NORMAL ACCOMODATION, PERRL - ENT Exam ENT Exam: Mucous Membranes Moist, Normal Exam Additional comments: NG tube placed. - Neck Exam Neck Exam: Full ROM - Respiratory Exam Respiratory Exam: Clear to Ausculation Bilateral, NORMAL BREATHING PATTERN. absent: Rales, Rhonchi, Wheezes, Respiratory Distress, Stridor - Cardiovascular Exam Cardiovascular Exam: RRR, +S1, +S2. absent: Murmur - GI/Abdominal Exam GI & Abdominal Exam: Soft, Tenderness, Normal Bowel Sounds. absent: Distended, Guarding, Rebound - Extremities Exam Extremities Exam: Full ROM, Normal Capillary Refill, Normal Inspection. absent : Joint Swelling, Pedal Edema - Back Exam Back Exam: NORMAL INSPECTION - Neurological Exam Neurological Exam: Alert, Awake, Oriented x3 - Skin Skin Exam: Dry, Intact, Normal Color, Warm Assessment and Plan - Assessment and Plan (Free Text) Assessment: Patient is a 62 y/o female with PMHX of HTN, depression, gastritis, arthritis, obesity, osteoporosis, ADRIANA (bipap at home) who presented to the ED c/ o epigastric pain with fever, nausea, non-bilious vomiting (x2), urinary frequency for 1-2 days. Endoscopy revealed medium sized hiatal hernia and a single 2 cm polyp at the greater curvature of stomach likely contributing to patient's GI complaints. Surgery consulted for removal of gastric polyp, in which they deemed patient was low risk for procedure. Patient is s/p partial gastrectomy/polypectomy. Jaclyn-operative evaluation conducted by cardiology team. Plan: HTN - BP is 167/104; continue to monitor BP - start on carvedilol 25 mg PO BID - d/c Atenolol 50 mg PO daily - Maintain MAP > 65 Epigastric pain 2/2 Gastric polyp s/p gastric wedge resection/polypectomy - Endoscopy: medium sized hiatal hernia. Single 2cm polyp at the greater curvature of stomach. Negative H. Pylori; Bx during EGD (likely benign). - s/p surgery (2 cm polyp removal); as deemed by surgery, low risk procedure. No complications from procedure. - NG tube: low intermittent suctioning - As per ACC/AHA Pre-operative cardiac risk guidelines, patient is at low- intermediate risk. However, patient does have risk factors (HTN, obesity, ADRIANA, advanced age), and requires echo and ekg for further evaluation. - ECHO (07/14): pending official read. - EKG (07/13): NSR. T wave inversion. - c/w antibiotic coverage - c/w dilaudid for pain ADRIANA - c/w BiPAP at night - Maintain SaO2 > 92% GI ppx: Protonix 40mg IV daily, Florastor 250 mg PO BID DVT ppx: SCDs and Lovenox 40mg SC daily Dispo: s/p gastric wedge resection/polypectomy. Continue to monitor on the floor. Case was discussed and reviewed with Finished Cloth Checker Dr. Toscano.
--- NOTE | 2018-07-14 11:26 | CP.PCM.PN ---
Subjective - Date & Time of Evaluation Date of Evaluation: 07/14/18 Time of Evaluation: 11:24 - Subjective Subjective: Surgery: Dr. Velazquez Pt seen and examined. Resting comfortably in bed. Has mild pain and incisional site. Has complaints of throat pain. Issues with urinary retention over night. Objective - Vital Signs/Intake and Output Vital Signs (last 24 hours): Temp Pulse Resp BP Pulse Ox 98.9 F 88 20 167/104 H 96 07/14/18 07:00 07/14/18 07:00 07/14/18 07:00 07/14/18 07:00 07/14/18 07:00 Intake and Output: 07/14/18 07/14/18 06:59 18:59 Intake Total 2400 Output Total 1450 Balance 950 - Medications Medications: Current Medications Acetaminophen (Tylenol 325mg Tab) 650 mg PO Q6 PRN PRN Reason: Fever >100.4 F Last Admin: 07/11/18 09:20 Dose: 650 mg Alprazolam (Xanax) 0.5 mg PO BID PRN PRN Reason: Anxiety Last Admin: 07/12/18 21:59 Dose: 0.5 mg Amlodipine Besylate (Norvasc) 5 mg PO DAILY [facility] Last Admin: 07/14/18 09:33 Dose: 5 mg Atenolol (Tenormin) 50 mg PO DAILY [facility] Last Admin: 07/14/18 09:23 Dose: 50 mg Benzocaine/Menthol (Cepacol Sore Throat) 1 angel luis MT Q4H PRN PRN Reason: Sore Throat Calcium/Vitamin D (Oscal-D 250 Mg-125 Units Tab) 1 tab PO BID [facility] Last Admin: 07/14/18 09:24 Dose: 1 tab Enoxaparin Sodium (Lovenox) 30 mg SC DAILY [facility] Last Admin: 07/14/18 09:25 Dose: 30 mg Home Med (Patient's Own Medication) 1 tab PO Q24H [facility] Last Admin: 07/13/18 13:10 Dose: 1 tab Hydromorphone HCl (Dilaudid) 0.5 mg IVP Q4H PRN PRN Reason: Pain, moderate (4-7) Last Admin: 07/14/18 09:28 Dose: 0.5 mg Potassium Chloride/Dextrose/Sod Cl (Potassium Chl 20 Meq In D5-1/2ns) 1,000 mls @ 120 mls/hr IV .Q8H20M [facility] Metoclopramide HCl (Reglan) 5 mg IVP Q6H [facility] Last Admin: 07/14/18 07:45 Dose: 5 mg Nystatin (Nystatin Oral Susp) 5 ml PO QID [facility] Last Admin: 07/14/18 10:41 Dose: Not Given Ondansetron HCl (Zofran Inj) 4 mg IVP Q6H PRN PRN Reason: Nausea/Vomiting Last Admin: 07/12/18 07:53 Dose: 4 mg Pantoprazole Sodium (Protonix Inj) 40 mg IVP DAILY [facility] Last Admin: 07/14/18 09:23 Dose: 40 mg Promethazine HCl (Phenergan Syrup) 6.25 mg PO TIDAC [facility] Last Admin: 07/14/18 08:30 Dose: Not Given Saccharomyces Boulardii (Florastor) 250 mg PO BID [facility] Last Admin: 07/14/18 09:24 Dose: 250 mg Simethicone (Mylicon Chew Tab) 80 mg PO QID [facility] Last Admin: 07/14/18 09:25 Dose: Not Given - Labs Labs: 07/14/18 08:15 07/14/18 08:15 PT 13.5 SECONDS (9.7-12.2) H 07/13/18 05:10 INR 1.2 07/13/18 05:10 APTT 30 SECONDS (21-34) 07/13/18 05:10 - Constitutional Appears: Non-toxic, No Acute Distress - Head Exam Head Exam: ATRAUMATIC, NORMOCEPHALIC - Eye Exam Eye Exam: EOMI - ENT Exam ENT Exam: Mucous Membranes Moist - Neck Exam Neck Exam: Full ROM - Respiratory Exam Respiratory Exam: NORMAL BREATHING PATTERN. absent: Accessory Muscle Use, Respiratory Distress - GI/Abdominal Exam GI & Abdominal Exam: Soft. absent: Distended, Firm, Guarding, Rigid, Tenderness , Rebound Additional comments: midline incision C/D/I - Extremities Exam Extremities Exam: absent: Calf Tenderness, Pedal Edema - Neurological Exam Neurological Exam: Alert, Awake, Oriented x3 Assessment and Plan - Assessment and Plan (Free Text) Assessment: 62F w. gastric polyp s/p gastric wedge resection POD#1 -Will D/C NGT -Keep NPO, c/w IVF -will place olsen for 24hrs for urinary retention -cepacol for throat pain -c/w GI/DVT ppx -d/w attending Matt PGY4
--- NOTE | 2018-07-14 12:04 | CARD ---
APPROVED REPORT Date of service: 07/13/2018 EKG Measurement Heart [id number] <Conclusion> Normal sinus rhythm T wave abnormality, consider anterolateral ischemia Abnormal ECG
[2018-07-14] MEDS: Potassium Ch 20mEq in D5-1/2NS 1,000 ML IV SCH ×2 (12:13→20:25)
--- NOTE | 2018-07-14 18:15 | PN ---
Copied To: Doris Yin MD Attending MD: Doris Yin MD DATE: 07/14/2018 LOCATION: 664, bed B. SUBJECTIVE: This is a 62-year-old female post upper endoscopy with partial left gastric resection due to gastric polyp, seen and examined in rounds, appeared to be awake, alert, oriented without any reported active bleeding with abdominal pain on and off as well as some throat pain post intubation, yesterday with some urine retention. The entire chart is reviewed including but not limited to the most recent lab and radiology study results, current and the previous medication list, current and the previous medical events. The patient denied any actual chest pain, significant shortness of breath, or palpitations. Today's lab showed normal CBC with blood glucose level 126, AST 38, ALT 54. PHYSICAL EXAMINATION: GENERAL: A 62-year-old female. VITAL SIGNS: Afebrile with blood pressure of 172/100, pulse of 84, respiratory rate 20 to 22. HEENT: Showed pale, dry oral mucous membrane. Mildly, nonicteric sclerae. LUNGS: Few scattered crepitation. Decreased air entry at bases. HEART: Positive S1 and S2. ABDOMEN: Soft. Bowel sounds are present. No mass or organomegaly. No rebound tenderness or guarding, covered with clean dressing. No bowel sounds. EXTREMITIES: Without edema, clubbing, or cyanosis. NEUROLOGIC: No reported new neurological deficits, sensory, or motor. IMPRESSION: 1. Gastric polyp, status post partial gastrectomy. 2. Peptic ulcer disease. 3. Internal hemorrhoids with left-sided colitis. 4. Poorly-controlled hypertension. SUGGESTIONS: 1. Continue current management. 2. Proton pump inhibitors IV. 3. Proper hyperalimentation. Doris Yin MD
[2018-07-14] MEDS ORDERED: DiphenhydrAMINE 50 mg/ml Inj IVP STA (21:20)
[2018-07-15] MEDS: Benzocaine/Menthol (Cepacol) Lozenge MT PRN ×2 (04:45→20:09)
[2018-07-15] MEDS: Potassium Ch 20mEq in D5-1/2NS 1,000 ML IV SCH ×3 (04:46→21:35)
--- NOTE | 2018-07-15 07:53 | CP.PCM.PN ---
Subjective - Date & Time of Evaluation Date of Evaluation: 07/15/18 Time of Evaluation: 09:30 - Subjective Subjective: PGY-1 Bouchra Haywood D.O. Medicine service note for Dr. Powers's service: Patient was seen and examined this morning. She still has the Pace in place- to be removed today. Patient is passing gas but has not yet had a BM. She has an appetite and will try clear liquids for lunch. Denies N/V. Endorses abdominal pain at incision site, which is relieved by pain meds. Patient re-evaluated in the afternoon. She tolerated clear liquids and will be advanced to full liquids for dinner. Objective - Vital Signs/Intake and Output Vital Signs (last 24 hours): Temp Pulse Resp BP Pulse Ox 99.4 F 85 20 156/95 H 95 07/14/18 23:20 07/14/18 23:20 07/14/18 23:20 07/14/18 23:20 07/14/18 23:20 Intake and Output: 07/15/18 07/15/18 06:59 18:59 Intake Total 960 Output Total 1300 Balance -1300 960 - Medications Medications: Current Medications Acetaminophen (Tylenol 325mg Tab) 650 mg PO Q6 PRN PRN Reason: Fever >100.4 F Last Admin: 07/11/18 09:20 Dose: 650 mg Alprazolam (Xanax) 0.5 mg PO BID PRN PRN Reason: Anxiety Last Admin: 07/12/18 21:59 Dose: 0.5 mg Amlodipine Besylate (Norvasc) 5 mg PO DAILY [facility] Last Admin: 07/14/18 09:33 Dose: 5 mg Benzocaine/Menthol (Cepacol Sore Throat) 1 angel luis MT Q4H PRN PRN Reason: Sore Throat Last Admin: 07/15/18 04:45 Dose: 1 angel luis Calcium/Vitamin D (Oscal-D 250 Mg-125 Units Tab) 1 tab PO BID [facility] Last Admin: 07/14/18 17:47 Dose: 1 tab Carvedilol (Coreg) 25 mg PO BID [facility] Last Admin: 07/14/18 17:52 Dose: 25 mg Enoxaparin Sodium (Lovenox) 30 mg SC DAILY [facility] Last Admin: 07/14/18 09:25 Dose: 30 mg Home Med (Patient's Own Medication) 1 tab PO Q24H [facility] Last Admin: 07/14/18 13:18 Dose: 1 tab Hydromorphone HCl (Dilaudid) 0.5 mg IVP Q4H PRN PRN Reason: Pain, moderate (4-7) Last Admin: 07/14/18 19:23 Dose: 0.5 mg Potassium Chloride/Dextrose/Sod Cl (Potassium Chl 20 Meq In D5-1/2ns) 1,000 mls @ 120 mls/hr IV .Q8H20M [facility] Last Admin: 07/15/18 04:46 Dose: 120 mls/hr Metoclopramide HCl (Reglan) 5 mg IVP Q6H [facility] Last Admin: 07/15/18 07:18 Dose: 5 mg Nystatin (Nystatin Oral Susp) 5 ml PO QID [facility] Last Admin: 07/14/18 21:12 Dose: 5 ml Ondansetron HCl (Zofran Inj) 4 mg IVP Q6H PRN PRN Reason: Nausea/Vomiting Last Admin: 07/15/18 04:38 Dose: 4 mg Pantoprazole Sodium (Protonix Inj) 40 mg IVP DAILY [facility] Last Admin: 07/14/18 09:23 Dose: 40 mg Promethazine HCl (Phenergan Syrup) 6.25 mg PO TIDAC PRN PRN Reason: Nausea/Vomiting Saccharomyces Boulardii (Florastor) 250 mg PO BID [facility] Last Admin: 07/14/18 17:47 Dose: 250 mg Simethicone (Mylicon Chew Tab) 80 mg PO QID [facility] Last Admin: 07/14/18 21:12 Dose: 80 mg - Labs Labs: 07/14/18 08:15 07/14/18 08:15 PT 13.5 SECONDS (9.7-12.2) H 07/13/18 05:10 INR 1.2 07/13/18 05:10 APTT 30 SECONDS (21-34) 07/13/18 05:10 - Constitutional Appears: Well, No Acute Distress - Head Exam Head Exam: ATRAUMATIC, NORMAL INSPECTION, NORMOCEPHALIC - Eye Exam Eye Exam: EOMI, Normal appearance - ENT Exam ENT Exam: Mucous Membranes Moist, Normal Exam - Neck Exam Neck Exam: Normal Inspection - Respiratory Exam Respiratory Exam: Clear to Ausculation Bilateral, NORMAL BREATHING PATTERN - Cardiovascular Exam Cardiovascular Exam: REGULAR RHYTHM, +S1, +S2 - GI/Abdominal Exam GI & Abdominal Exam: Soft, Tenderness, Hypoactive Bowel Sounds Additional comments: bandages above umbilicus s/p gastric wedge resection/polypectomy - Rectal Exam Rectal Exam: Deferred - Extremities Exam Extremities Exam: Normal Capillary Refill, Normal Inspection - Back Exam Back Exam: NORMAL INSPECTION - Neurological Exam Neurological Exam: Alert, Awake, Oriented x3 - Psychiatric Exam Psychiatric exam: Normal Affect, Normal Mood - Skin Skin Exam: Dry, Intact, Normal Color, Warm Assessment and Plan - Assessment and Plan (Free Text) Assessment: Patient is a 62 yo female with past medical history of hypertension, depression, gastritis, arthritis, osteoporosis, sleep apnea on Bipap who presented with epigastric/lower abdominal pain with associated symptoms of fever , nausea, non-bilious vomiting, diarrhea, and urinary frequency x1-2 days. EGD found gastric polyp. Colonoscopy revealed colitis and spastic colon. Patient s/ p gastric wedge resection/polypectomy (07/13/18). Plan: Gastric polyp s/p gastric wedge resection/polypectomy (2 cm, hyperplastic)- POD2 - Biopsied during EGD- negative, no H. pylori - Gen surg consulted (Dr. Velazquez)- gastric wedge resection/polypectomy done Friday 07/13 - NGT removed - Full liquids (pt passed flatus) - Tylenol 650 mg PO q6hrs PRN - Dilaudid 0.5 mg IV q4hrs PRN - PT consult- rec TCU, OOB TID with meals Urinary retention, acute- post anesthesia - Straight cath x2- 1000 mL, 350 mL - Pace cath x24hrs- 1500 mL, 2800 mL - Remove Pace later today HTN, chronic, persistent- suspect 2/2 pain, Dilaudid, anxiety - Vitals q4hrs - Start Norvasc 5 mg PO daily - Discontinue Atenolol and start Coreg 25 mg PO BID - Hydralazine 10 mg PO QID PRN SBP>160 - Cardio consulted ([place]) - F/u echo Oral thrush, acute - Start Nystatin 5 mL QID for oral thrush - Benzocaine/Menthol q4 PRN Gastritis and colitis, acute, resolved - EGD 07/08: Bx gastric polyp negative for H. pylori - Colonoscopy 07/09: colitis, spastic colon - C diff neg - Stool leukocytes neg - Stool O&P neg - HIV neg - Reglan 5 mg IV q6hrs - Simethicone 80 mg PO QID - Discontinued Cipro and Flagyl - ID consulted (Dr. Weems) Sepsis, acute, resolved- suspect 2/2 gastritis/colitis - On admission: temp 102.8, HR 110 - Most recent fever 100.4 on 07/14 @ 3 PM, resolved without intervention- continue to monitor, if persistent fevers, consider CXR and abx - Repeat clean catch UA negative on 07/15 - Blood Cx negative >5 days, repeat neg >3 days, repeat drawn 07/15 - Stool Cx negative - CT A/P 07/07: no acute findings - Tylenol 650mg PO q6hrs PRN - Discontinued Rocephin, cipro, Flagyl - ID consulted (Dr. Weems) Vomiting, acute, resolved - Zofran 4mg IV Q6H PRN - Promethazine 6.25 mg PO TIDAC PRN Osteoporosis, chronic, stable - Continue home Calcium Carbonate 1 tab PO BID - Hold Alendronate 150mg PO daily due to possible GI side effects Anxiety - Trintellix 10 mg PO qhs - Xanax 0.5 mg BID prn IVF: KCl 20 mEq/D5/NS @ 120- consider stopping tomorrow if patient tolerating oral intake, urinating, and having BMs GI ppx: Protonix 40mg IV daily, Florastor 250 mg PO BID VTE ppx: SCDs, Lovenox 30mg SC daily Diet: full liquids, advance as tolerated Code status: full code
[2018-07-15 08:15] LABS: BASO # 0.1 K/uL (0.0-0.2); BASO % 0.8 % (0.0-2.0); EOS # 0.1 K/uL (0.0-0.7); HEMOGLOBIN 12.9 g/dL (11.0-16.0); LYMPH # 2.2 K/uL (1.0-4.3); LYMPH % 23.7 % (20.0-40.0); MEAN CELL VOLUME 84.6 fL (81.0-99.0); MEAN CORPUSCULAR HEMOGLOBIN 29.3 pg (27.0-31.0); MEAN CORPUSCULAR HGB CONC 34.6 g/dL (33.0-37.0); MEAN PLATELET VOLUME 7.5 fL (7.2-11.7); MONO # 0.8 K/uL (0.0-0.8); MONO % 8.7 % (0.0-10.0); NEUT # 6.2 K/uL (1.8-7.0); NEUT % 65.8 % (50.0-75.0); NRBC % 0.1 % (0.0-2.0); RBC 4.4 Mil/uL (3.80-5.20); RED CELL DISTRIBUTION WIDTH 14.1 % (11.5-14.5); WHITE BLOOD COUNT 9.5 K/uL (4.8-10.8)
[2018-07-15 08:45] LABS: ALB/GLOB RATIO 1.1 (1.0-2.1); ALBUMIN 3.8 g/dL (3.5-5.0); ALT/SGPT 42 U/L (9-52); AST/SGOT 36 U/L (14-36); BLOOD UREA NITROGEN 8 mg/dL (7-17); GFR AFRICAN-AMERICAN > 60; GFR NON-AFRICAN AMERICAN > 60
--- NOTE | 2018-07-15 09:16 | CP.PCM.PN ---
Subjective - Date & Time of Evaluation Date of Evaluation: 07/15/18 Time of Evaluation: 08:00 - Subjective Subjective: Jose Murphy, PGY1 Cardiology Progress Note for Dr. Toscano Patient was seen and examined at bedside this morning. Nurse was available for Sami interpretation. No acute overnight changes. Patient's NG tube was removed yesterday. Patient denied headache, chest pain, shortness of breath, numbness and tingling of the lower extremities, pain and swelling of the extremities, vomiting, diarrhea, dysuria. Patient says that she still has epigastric tenderness and was explained that this is expected s/p partial gastric wedge resection/polypectomy (POD #2). Patient is passing gas. She also endorses lightheadedness and nausea. Patient explained that her BP medication was adjusted for better control. A full 12 point ROS was conducted and unremarkable except as stated above. Objective - Vital Signs/Intake and Output Vital Signs (last 24 hours): Temp Pulse Resp BP Pulse Ox 99.4 F 85 20 156/95 H 95 07/14/18 23:20 07/14/18 23:20 07/14/18 23:20 07/14/18 23:20 07/14/18 23:20 Intake and Output: 07/15/18 07/15/18 06:59 18:59 Intake Total 960 Output Total 1300 Balance -1300 960 - Medications Medications: Current Medications Acetaminophen (Tylenol 325mg Tab) 650 mg PO Q6 PRN PRN Reason: Fever >100.4 F Last Admin: 07/11/18 09:20 Dose: 650 mg Alprazolam (Xanax) 0.5 mg PO BID PRN PRN Reason: Anxiety Last Admin: 07/12/18 21:59 Dose: 0.5 mg Amlodipine Besylate (Norvasc) 5 mg PO DAILY [facility] Last Admin: 07/14/18 09:33 Dose: 5 mg Benzocaine/Menthol (Cepacol Sore Throat) 1 angel luis MT Q4H PRN PRN Reason: Sore Throat Last Admin: 07/15/18 04:45 Dose: 1 angel luis Calcium/Vitamin D (Oscal-D 250 Mg-125 Units Tab) 1 tab PO BID [facility] Last Admin: 07/14/18 17:47 Dose: 1 tab Carvedilol (Coreg) 25 mg PO BID [facility] Last Admin: 07/14/18 17:52 Dose: 25 mg Enoxaparin Sodium (Lovenox) 30 mg SC DAILY [facility] Last Admin: 07/14/18 09:25 Dose: 30 mg Home Med (Patient's Own Medication) 1 tab PO Q24H [facility] Last Admin: 07/14/18 13:18 Dose: 1 tab Hydromorphone HCl (Dilaudid) 0.5 mg IVP Q4H PRN PRN Reason: Pain, moderate (4-7) Last Admin: 07/14/18 19:23 Dose: 0.5 mg Potassium Chloride/Dextrose/Sod Cl (Potassium Chl 20 Meq In D5-1/2ns) 1,000 mls @ 120 mls/hr IV .Q8H20M [facility] Last Admin: 07/15/18 04:46 Dose: 120 mls/hr Metoclopramide HCl (Reglan) 5 mg IVP Q6H [facility] Last Admin: 07/15/18 07:18 Dose: 5 mg Nystatin (Nystatin Oral Susp) 5 ml PO QID [facility] Last Admin: 07/14/18 21:12 Dose: 5 ml Ondansetron HCl (Zofran Inj) 4 mg IVP Q6H PRN PRN Reason: Nausea/Vomiting Last Admin: 07/15/18 04:38 Dose: 4 mg Pantoprazole Sodium (Protonix Inj) 40 mg IVP DAILY [facility] Last Admin: 07/14/18 09:23 Dose: 40 mg Promethazine HCl (Phenergan Syrup) 6.25 mg PO TIDAC PRN PRN Reason: Nausea/Vomiting Saccharomyces Boulardii (Florastor) 250 mg PO BID [facility] Last Admin: 07/14/18 17:47 Dose: 250 mg Simethicone (Mylicon Chew Tab) 80 mg PO QID [facility] Last Admin: 07/14/18 21:12 Dose: 80 mg - Labs Labs: 07/15/18 08:02 07/15/18 08:02 PT 13.5 SECONDS (9.7-12.2) H 07/13/18 05:10 INR 1.2 07/13/18 05:10 APTT 30 SECONDS (21-34) 07/13/18 05:10 - Constitutional Appears: Well, No Acute Distress - Head Exam Head Exam: ATRAUMATIC, NORMAL INSPECTION, NORMOCEPHALIC - Eye Exam Eye Exam: EOMI, Normal appearance, PERRL Pupil Exam: NORMAL ACCOMODATION, PERRL - ENT Exam ENT Exam: Mucous Membranes Moist, Normal Exam Additional comments: Nasal cannula in place. - Neck Exam Neck Exam: Full ROM, Normal Inspection. absent: Lymphadenopathy - Respiratory Exam Respiratory Exam: Clear to Ausculation Bilateral, NORMAL BREATHING PATTERN. absent: Accessory Muscle Use, Chest Wall Tenderness, Rales, Rhonchi, Wheezes, Respiratory Distress - Cardiovascular Exam Cardiovascular Exam: REGULAR RHYTHM, +S1, +S2. absent: Murmur - GI/Abdominal Exam GI & Abdominal Exam: Soft, Tenderness (Epigastric tenderness with light palpation (s/p gastric polypectomy) ), Normal Bowel Sounds. absent: Distended, Firm, Guarding, Rigid, Mass Additional comments: Dressing is in place at epigastric region. - Extremities Exam Extremities Exam: Full ROM, Normal Capillary Refill, Normal Inspection. absent : Joint Swelling, Pedal Edema, Tenderness - Back Exam Back Exam: NORMAL INSPECTION - Neurological Exam Neurological Exam: Alert, Awake, Oriented x3 Neuro motor strength exam: Left Upper Extremity: 5, Right Upper Extremity: 5, Left Lower Extremity: 5, Right Lower Extremity: 5 - Skin Skin Exam: Dry, Intact, Normal Color, Warm Assessment and Plan - Assessment and Plan (Free Text) Assessment: Patient is a 62 y/o female with PMHX of HTN, depression, gastritis, arthritis, obesity, osteoporosis, ADRIANA (bipap at home) who presented to the ED c/ o epigastric pain with fever, nausea, non-bilious vomiting (x2), urinary frequency for 1-2 days. Endoscopy revealed medium sized hiatal hernia and a single 2 cm polyp at the greater curvature of stomach likely contributing to patient's GI complaints. Surgery consulted for removal of gastric polyp, in which they deemed patient was low risk for procedure. Patient is s/p partial gastrectomy/polypectomy. Jaclyn-operative evaluation conducted by cardiology team. Patient was hypertensive on the floor, BP medications adjusted. Plan: HTN - BP is 156/95 (improving) - Please continue to monitor BP q4 - c/w carvedilol 25 mg PO BID for appropriate management of BP - d/c Atenolol 50 mg PO daily - Maintain MAP > 65 Epigastric pain 2/2 Gastric polyp s/p gastric wedge resection/polypectomy (POD # 2) - Endoscopy: medium sized hiatal hernia. Single 2cm polyp at the greater curvature of stomach. Negative H. Pylori; Bx during EGD (likely benign). - s/p surgery (2 cm polyp removal); as deemed by surgery, low risk procedure. No complications from procedure. - NG tube was removed (07/14) - Pace insertion (07/14) - As per ACC/AHA Pre-operative cardiac risk guidelines, patient is at low- intermediate risk. However, patient does have risk factors (HTN, obesity, ADRIANA, advanced age), and requires echo and ekg for further evaluation. - ECHO (07/14): EF 70%. Pending official read. - EKG (07/13): NSR. T wave inversion. - c/w zofran for nausea - c/w appropriate pain management - encourage ambulation; c/w PT ADRIANA - c/w BiPAP at night - Maintain SaO2 > 92% GI ppx: Protonix 40mg IV daily DVT ppx: SCDs and Lovenox 40mg SC daily Dispo: s/p gastric wedge resection/polypectomy (POD #2). Continue to monitor on the floor. Case was discussed and reviewed with Paint Mixer Hand Dr. Toscano.
[2018-07-15] MEDS: Enoxaparin 30 mg Syringe SC SCH (09:54)
[2018-07-15] MEDS: Nystatin 100,000 Units/ml Oral Susp 5 ml UD PO SCH ×3 (09:54→18:53)
[2018-07-15] MEDS: Saccharomyces Boulardi 250 mg Cap PO SCH ×2 (09:54→17:18)
[2018-07-15] MEDS: Simethicone 80 mg Chewtab PO SCH ×4 (09:54→21:36)
[2018-07-15] MEDS: Calcium-Vit D 250 mg-125 Units Tab UD PO SCH ×2 (09:54→17:18)
--- NOTE | 2018-07-15 11:53 | CARD ---
APPROVED REPORT Date of service: 07/14/2018 EXAM: Two-dimensional and M-mode echocardiogram with Doppler and color Doppler. Other Information Quality : GoodRhythm : INDICATION LV Function:SystolicDiastolic RISK FACTORS Hypertension 2D DIMENSIONS IVSd1.0 (0.7-1.1cm)LVDd4.3 (3.9-5.9cm) PWd1.1 (0.7-1.1cm)LVDs2.3 (2.5-4.0cm) FS (%) 45.1 %LVEF (%)70.0 (>50%) M-Mode DIMENSIONS Left Atrium (MM)3.61 (2.5-4.0cm)IVSd1.00 (0.7-1.1cm) Aortic Root3.03 (2.2-3.7cm)LVDd5.00 (4.0-5.6cm) Aortic Cusp Exc.2.10 (1.5-2.0cm)PWd1.06 (0.7-1.1cm) FS (%) 37 %LVDs3.14 (2.0-3.8cm) LVEF (%)67 (>50%) Mitral Valve MV E Ypzbjrjt35.4cm/sMV A Pjnuhjfh42.3cm/sE/A ratio0.6 TDI E/Lateral E'0.0E/Medial E'0.0 Tricuspid Valve TR Peak [id number]/sTR Peak Gr.[id number] LEFT VENTRICLE The left ventricle is normal size. There is normal left ventricular wall thickness. The left ventricular function is normal. The left ventricular ejection fraction is within the normal range. No regional wall motion abnormalities noted. Transmitral Doppler flow pattern is Grade I-abnormal relaxation pattern. The left atrial pressure is mildly elevated. No left ventricle thrombus noted on this study. There is no ventricular septal defect visualized. There is no left ventricular aneurysm. There is no mass noted in the left ventricle. RIGHT VENTRICLE The right ventricle is normal size. There is normal right ventricular wall thickness. The right ventricular systolic function is normal. ATRIA The left atrium size is normal. The right atrium size is normal. The interatrial septum is intact with no evidence for an atrial septal defect. AORTIC VALVE The aortic valve is normal in structure and function. There is mild aortic regurgitation. There is no aortic valvular stenosis. There is no aortic valvular vegetation. MITRAL VALVE The mitral valve is normal in structure and function. There is no evidence of mitral valve prolapse. There is no mitral valve stenosis. There is no mitral valve regurgitation noted. TRICUSPID VALVE The tricuspid valve is normal in structure and function. There is no tricuspid valve regurgitation noted. There is no tricuspid valve prolapse or vegetation. There is no tricuspid valve stenosis. PULMONIC VALVE The pulmonary valve is normal in structure and function. There is no pulmonic valvular regurgitation. There is no pulmonic valvular stenosis. GREAT VESSELS The aortic root is normal in size. The ascending aorta is normal in size. The pulmonary artery is normal. The IVC is normal in size and collapses >50% with inspiration. PERICARDIAL EFFUSION The pericardium appears normal. There is no pleural effusion. <Conclusion> The left ventricular function is normal. The left ventricular ejection fraction is within the normal range. No regional wall motion abnormalities noted. Transmitral Doppler flow pattern is Grade I-abnormal relaxation pattern. The left atrial pressure is mildly elevated. There is mild aortic regurgitation.
[2018-07-15 12:50] LABS: URINE BACTERIA RARE (<OCC); URINE BILIRUBIN NEGATIVE (NEGATIVE); URINE CLARITY Clear (Clear); URINE COLOR Straw (YELLOW); URINE GLUCOSE (UA) NORMAL (Normal); URINE LEUKOCYTE ESTERASE TRACE Leu/uL (Negative); URINE PROTEIN NEGATIVE (NEGATIVE); URINE UROBILINOGEN NORMAL mg/dL (0.2-1.0)
[2018-07-15 12:51] LABS: URINE BLOOD 1+ (NEGATIVE)
[2018-07-15] MEDS ORDERED: HYDROmorphone 0.5 mg/0.5 ml ISec IVP PRN (13:52)
--- NOTE | 2018-07-15 15:41 | CP.PCM.PN ---
Subjective - Date & Time of Evaluation Date of Evaluation: 07/15/18 Time of Evaluation: 10:45 - Subjective Subjective: General surgery progress note for Dr. Velazquez patient seen and examined this morning at bedside. Patient states that she is feeling much better is passing gas but no BM. She otherwise denies f/c/n/v. Objective - Vital Signs/Intake and Output Vital Signs (last 24 hours): Temp Pulse Resp BP Pulse Ox 98.9 F 83 20 154/94 H 94 L 07/15/18 15:27 07/15/18 15:27 07/15/18 15:27 07/15/18 15:27 07/15/18 15:27 Intake and Output: 07/15/18 07/15/18 06:59 18:59 Intake Total 960 Output Total 1300 1000 Balance -1300 -40 - Medications Medications: Current Medications Acetaminophen (Tylenol 325mg Tab) 650 mg PO Q6 PRN PRN Reason: Fever >100.4 F Last Admin: 07/11/18 09:20 Dose: 650 mg Alprazolam (Xanax) 0.5 mg PO BID PRN PRN Reason: Anxiety Last Admin: 07/12/18 21:59 Dose: 0.5 mg Amlodipine Besylate (Norvasc) 5 mg PO DAILY [facility] Last Admin: 07/15/18 09:54 Dose: 5 mg Benzocaine/Menthol (Cepacol Sore Throat) 1 angel luis MT Q4H PRN PRN Reason: Sore Throat Last Admin: 07/15/18 04:45 Dose: 1 angel luis Calcium/Vitamin D (Oscal-D 250 Mg-125 Units Tab) 1 tab PO BID [facility] Last Admin: 07/15/18 09:54 Dose: 1 tab Carvedilol (Coreg) 25 mg PO BID [facility] Last Admin: 07/15/18 09:54 Dose: 25 mg Enoxaparin Sodium (Lovenox) 30 mg SC DAILY [facility] Last Admin: 07/15/18 09:54 Dose: 30 mg Home Med (Patient's Own Medication) 1 tab PO Q24H [facility] Last Admin: 07/15/18 14:19 Dose: 1 tab Hydralazine HCl (Apresoline) 10 mg PO QID PRN PRN Reason: HTN, SBP >160 Hydromorphone HCl (Dilaudid) 0.5 mg IVP Q6H PRN PRN Reason: Pain, moderate (4-7) Potassium Chloride/Dextrose/Sod Cl (Potassium Chl 20 Meq In D5-1/2ns) 1,000 mls @ 120 mls/hr IV .Q8H20M [facility] Last Admin: 07/15/18 14:19 Dose: Not Given Metoclopramide HCl (Reglan) 5 mg IVP Q6H [facility] Last Admin: 07/15/18 14:20 Dose: Not Given Nystatin (Nystatin Oral Susp) 5 ml PO QID [facility] Last Admin: 07/15/18 14:19 Dose: 5 ml Ondansetron HCl (Zofran Inj) 4 mg IVP Q6H PRN PRN Reason: Nausea/Vomiting Last Admin: 07/15/18 04:38 Dose: 4 mg Pantoprazole Sodium (Protonix Inj) 40 mg IVP DAILY [facility] Last Admin: 07/15/18 09:54 Dose: 40 mg Promethazine HCl (Phenergan Syrup) 6.25 mg PO TIDAC PRN PRN Reason: Nausea/Vomiting Saccharomyces Boulardii (Florastor) 250 mg PO BID [facility] Last Admin: 07/15/18 09:54 Dose: 250 mg Simethicone (Mylicon Chew Tab) 80 mg PO QID [facility] Last Admin: 07/15/18 14:19 Dose: 80 mg - Labs Labs: 07/15/18 08:02 07/15/18 08:02 PT 13.5 SECONDS (9.7-12.2) H 07/13/18 05:10 INR 1.2 07/13/18 05:10 APTT 30 SECONDS (21-34) 07/13/18 05:10 - Constitutional Appears: Well, Non-toxic, No Acute Distress - Head Exam Head Exam: ATRAUMATIC, NORMOCEPHALIC - ENT Exam ENT Exam: Mucous Membranes Moist - Respiratory Exam Respiratory Exam: NORMAL BREATHING PATTERN - Cardiovascular Exam Cardiovascular Exam: +S1, +S2 - GI/Abdominal Exam GI & Abdominal Exam: Soft. absent: Distended, Firm, Guarding, Rigid, Rebound Additional comments: appropriate incisional tenderness - Neurological Exam Neurological Exam: Alert, Awake, Oriented x3 - Psychiatric Exam Psychiatric exam: Normal Affect, Normal Mood - Skin Skin Exam: Dry, Intact, Normal Color, Warm Additional comments: dressing in place incisions cdi Assessment and Plan - Assessment and Plan (Free Text) Assessment: 62 yr old F s/p partial gastrectomy for gastric polyp, POD 2 with resolved urinary retention postoperatively Plan: -d/c olsen, will f/u uop - Advance diet as tolerated will f/u toleration of CLD for lunch - patient passing flatus but no BM -c/w GI/DVT ppx -d/w attending Sofy Browne, PGY 1
--- NOTE | 2018-07-15 17:06 | PN ---
Copied To: Doris Yin MD Attending MD: Doris Yin MD DATE: 07/15/2018 LOCATION: 664, bed B. SUBJECTIVE: This is a 62-year-old female post upper and lower endoscopy as well as status post partial gastrectomy due to a large gastric polypoid lesion, which was reported initially as per the pathology staff to be negative for malignant cells. The entire chart is reviewed including but not limited to the most recent lab and radiology study results, current and the previous medication list, current and the previous medical events with reported period of elevated blood pressure before. The patient still has intermittent period of postsurgical abdominal pain. No passing gas or bowel movement. The entire chart is reviewed including but not limited to most recent lab and radiology study results, current and the previous medication list, current and the previous medical events, and today's lab showed normal CBC with low BUN. Blood glucose level 144 with phosphorus 2.3, but normal liver function test. PHYSICAL EXAMINATION: GENERAL: A 62-year-old female. VITAL SIGNS: Afebrile with pulse of 80, respiratory rate 20 to 22, blood pressure of 158/100. HEENT: Showed dry oral mucous membrane. Nonicteric sclerae. LUNGS: Few scattered crepitation. Decreased air entry at bases. HEART: Positive S1 and S2. ABDOMEN: Soft with mild generalized tenderness. Bowel sounds are absent so far, covered with clean dressing. EXTREMITIES: Without significant clubbing, cyanosis, or edema. [employer]: No reported new neurological deficits, sensory, or motor. IMPRESSION: 1. Status post partial gastric resection due to gastric polypoid lesion. 2. Re-exacerbation of peptic ulcer disease. 3. Poorly-controlled hypertension. 4. Colitis with internal hemorrhoids by recent colonoscopy. SUGGESTIONS: 1. Agree with your plan. 2. Central hyperalimentation. 3. Cardiology reevaluation due to the patient's persistent elevation of hypertension. 4. Further recommendation to follow. Doris Yin MD
[2018-07-15] MEDS: Promethazine 6.25 MG/5 ML CUP PO PRN (20:08)
--- NOTE | 2018-07-15 21:09 | CP.PCM.PN ---
Subjective - Date & Time of Evaluation Date of Evaluation: 07/15/18 Time of Evaluation: 18:00 - Subjective Subjective: dictated Objective - Vital Signs/Intake and Output Vital Signs (last 24 hours): Temp Pulse Resp BP Pulse Ox 98.9 F 90 20 150/85 94 L 07/15/18 15:27 07/15/18 20:10 07/15/18 15:27 07/15/18 20:10 07/15/18 15:27 Intake and Output: 07/15/18 07/16/18 18:59 06:59 Intake Total 1200 Output Total 2150 Balance -950 - Medications Medications: Current Medications Acetaminophen (Tylenol 325mg Tab) 650 mg PO Q6 PRN PRN Reason: Fever >100.4 F Last Admin: 07/11/18 09:20 Dose: 650 mg Alprazolam (Xanax) 0.5 mg PO BID PRN PRN Reason: Anxiety Last Admin: 07/12/18 21:59 Dose: 0.5 mg Amlodipine Besylate (Norvasc) 5 mg PO DAILY [facility] Last Admin: 07/15/18 09:54 Dose: 5 mg Benzocaine/Menthol (Cepacol Sore Throat) 1 angel luis MT Q4H PRN PRN Reason: Sore Throat Last Admin: 07/15/18 20:09 Dose: 1 angel luis Calcium/Vitamin D (Oscal-D 250 Mg-125 Units Tab) 1 tab PO BID [facility] Last Admin: 07/15/18 17:18 Dose: 1 tab Carvedilol (Coreg) 25 mg PO BID [facility] Last Admin: 07/15/18 17:18 Dose: 25 mg Enoxaparin Sodium (Lovenox) 30 mg SC DAILY [facility] Last Admin: 07/15/18 09:54 Dose: 30 mg Home Med (Patient's Own Medication) 1 tab PO Q24H [facility] Last Admin: 07/15/18 14:19 Dose: 1 tab Hydralazine HCl (Apresoline) 10 mg PO QID PRN PRN Reason: HTN, SBP >160 Hydromorphone HCl (Dilaudid) 0.5 mg IVP Q6H PRN PRN Reason: Pain, moderate (4-7) Potassium Chloride/Dextrose/Sod Cl (Potassium Chl 20 Meq In D5-1/2ns) 1,000 mls @ 120 mls/hr IV .Q8H20M [facility] Last Admin: 07/15/18 14:19 Dose: Not Given Metoclopramide HCl (Reglan) 5 mg IVP Q6H [facility] Last Admin: 07/15/18 18:53 Dose: Not Given Ondansetron HCl (Zofran Inj) 4 mg IVP Q6H PRN PRN Reason: Nausea/Vomiting Last Admin: 07/15/18 04:38 Dose: 4 mg Pantoprazole Sodium (Protonix Inj) 40 mg IVP DAILY [facility] Last Admin: 07/15/18 09:54 Dose: 40 mg Promethazine HCl (Phenergan Syrup) 6.25 mg PO TIDAC PRN PRN Reason: Nausea/Vomiting Last Admin: 07/15/18 20:08 Dose: 6.25 mg Saccharomyces Boulardii (Florastor) 250 mg PO BID [facility] Last Admin: 07/15/18 17:18 Dose: 250 mg Simethicone (Mylicon Chew Tab) 80 mg PO QID [facility] Last Admin: 07/15/18 17:18 Dose: 80 mg - Labs Labs: 07/15/18 08:02 07/15/18 08:02 PT 13.5 SECONDS (9.7-12.2) H 07/13/18 05:10 INR 1.2 07/13/18 05:10 APTT 30 SECONDS (21-34) 07/13/18 05:10
--- NOTE | 2018-07-15 23:56 | PN ---
Copied To: Andie Weems MD Attending MD: Andie Weems MD DATE: 07/15/2018 SUBJECTIVE: The patient was seen today, and they were asking me for renewing the nystatin. She had a temperature of 100.4 yesterday. She did have some cough, and she is postop, she has complains of pain in the surgical site. Otherwise, she has been on liquid diet she says, and she denies any other complaints except pain at the surgical site. She did have a gastric polyp removed. She denies any nausea or vomiting. She does have some cough. OBJECTIVE: VITAL SIGNS: T-max is 100.4 yesterday but today she has been afebrile. T-max is 98.9, pulse 83, blood pressure right now was high 154/94, respirations are 20. GENERAL: She is awake, alert. HEENT: Head is atraumatic, normocephalic. Tongue has no thrush now. NECK: Supple. JVP is flat. LUNGS: Clear. No crackles or rales present. Has no wheezing. No rhonchi. HEART: S1, S2 regular. ABDOMEN: Soft. There is a surgical dressing present which is clean. EXTREMITIES: Have no edema. Labs are noted. Labs show white count today was 9.5, hemoglobin 12.9, hematocrit 37.2, platelet count is 314, BUN is 8, creatinine 0.6, glucose is 144. Blood pressure was increased and they have added cardiac meds back, and at this time, I would discontinue the nystatin. Her cultures were all negative from 07/11 including blood cultures and urine culture, and she is afebrile, and her medications, she is off all antibiotics now, and she is on Florastor which can be discontinued in 3 days. Awaiting for the pathology. Andie Weems MD
[2018-07-16] MEDS: Potassium Ch 20mEq in D5-1/2NS 1,000 ML IV SCH (05:50)
--- NOTE | 2018-07-16 06:26 | CP.PCM.PN ---
<Bouchra Haywood - Last Filed: 07/16/18 16:04> Subjective - Date & Time of Evaluation Date of Evaluation: 07/16/18 Time of Evaluation: 09:20 - Subjective Subjective: PGY-1 Bouchra Haywood D.O. Medicine service note for Dr. Antonio Batista's service : Patient seen and examined this morning. She states that she is feeling better. She still has abdominal pain, but it is well controlled. She is urinating and having BMs. She is tolerating full liquids and will be advanced to a regular diet today. Encouraged patient to work with PT to get out of bed and walk. Discussed potential discharge to home tomorrow. Objective - Vital Signs/Intake and Output Vital Signs (last 24 hours): Temp Pulse Resp BP Pulse Ox 99.2 F 88 20 132/84 95 07/16/18 04:05 07/16/18 04:05 07/16/18 04:05 07/16/18 04:05 07/16/18 04:05 Intake and Output: 07/15/18 07/16/18 18:59 06:59 Intake Total 1200 Output Total 2150 Balance -950 - Medications Medications: Current Medications Acetaminophen (Tylenol 325mg Tab) 650 mg PO Q6 PRN PRN Reason: Fever >100.4 F Last Admin: 07/11/18 09:20 Dose: 650 mg Alprazolam (Xanax) 0.5 mg PO BID PRN PRN Reason: Anxiety Last Admin: 07/15/18 21:36 Dose: 0.5 mg Amlodipine Besylate (Norvasc) 5 mg PO DAILY [facility] Last Admin: 07/15/18 09:54 Dose: 5 mg Benzocaine/Menthol (Cepacol Sore Throat) 1 angel luis MT Q4H PRN PRN Reason: Sore Throat Last Admin: 07/15/18 20:09 Dose: 1 angel luis Calcium/Vitamin D (Oscal-D 250 Mg-125 Units Tab) 1 tab PO BID [facility] Last Admin: 07/15/18 17:18 Dose: 1 tab Carvedilol (Coreg) 25 mg PO BID [facility] Last Admin: 07/15/18 17:18 Dose: 25 mg Enoxaparin Sodium (Lovenox) 30 mg SC DAILY [facility] Last Admin: 07/15/18 09:54 Dose: 30 mg Home Med (Patient's Own Medication) 1 tab PO Q24H [facility] Last Admin: 07/15/18 14:19 Dose: 1 tab Hydralazine HCl (Apresoline) 10 mg PO QID PRN PRN Reason: HTN, SBP >160 Hydromorphone HCl (Dilaudid) 0.5 mg IVP Q6H PRN PRN Reason: Pain, moderate (4-7) Potassium Chloride/Dextrose/Sod Cl (Potassium Chl 20 Meq In D5-1/2ns) 1,000 mls @ 120 mls/hr IV .Q8H20M [facility] Last Admin: 07/16/18 05:50 Dose: 120 mls/hr Metoclopramide HCl (Reglan) 5 mg IVP Q6H [facility] Last Admin: 07/16/18 05:48 Dose: 5 mg Ondansetron HCl (Zofran Inj) 4 mg IVP Q6H PRN PRN Reason: Nausea/Vomiting Last Admin: 07/15/18 04:38 Dose: 4 mg Pantoprazole Sodium (Protonix Inj) 40 mg IVP DAILY [facility] Last Admin: 07/15/18 09:54 Dose: 40 mg Promethazine HCl (Phenergan Syrup) 6.25 mg PO TIDAC PRN PRN Reason: Nausea/Vomiting Last Admin: 07/15/18 20:08 Dose: 6.25 mg Saccharomyces Boulardii (Florastor) 250 mg PO BID [facility] Last Admin: 07/15/18 17:18 Dose: 250 mg Simethicone (Mylicon Chew Tab) 80 mg PO QID [facility] Last Admin: 07/15/18 21:36 Dose: 80 mg - Labs Labs: 07/15/18 08:02 07/15/18 08:02 PT 13.5 SECONDS (9.7-12.2) H 07/13/18 05:10 INR 1.2 07/13/18 05:10 APTT 30 SECONDS (21-34) 07/13/18 05:10 - Constitutional Appears: Well, Non-toxic, No Acute Distress - Head Exam Head Exam: ATRAUMATIC, NORMAL INSPECTION, NORMOCEPHALIC - Eye Exam Eye Exam: EOMI, Normal appearance - ENT Exam ENT Exam: Mucous Membranes Moist, Normal Exam - Neck Exam Neck Exam: Normal Inspection - Respiratory Exam Respiratory Exam: Clear to Ausculation Bilateral, NORMAL BREATHING PATTERN - Cardiovascular Exam Cardiovascular Exam: REGULAR RHYTHM Additional comments: bandages above umbilicus s/p gastric wedge resection/polypectomy - GI/Abdominal Exam GI & Abdominal Exam: Soft, Normal Bowel Sounds. absent: Tenderness - Rectal Exam Rectal Exam: Deferred - Extremities Exam Extremities Exam: Normal Inspection - Back Exam Back Exam: NORMAL INSPECTION - Neurological Exam Neurological Exam: Alert, Awake - Psychiatric Exam Psychiatric exam: Normal Affect, Normal Mood - Skin Skin Exam: Dry, Intact, Normal Color, Warm Assessment and Plan - Assessment and Plan (Free Text) Assessment: Patient is a 62 yo female with past medical history of hypertension, depression, gastritis, arthritis, osteoporosis, sleep apnea on Bipap who presented with epigastric/lower abdominal pain with associated symptoms of fever , nausea, non-bilious vomiting, diarrhea, and urinary frequency x1-2 days. EGD found gastric polyp. Colonoscopy revealed colitis and spastic colon. Patient s/ p gastric wedge resection/polypectomy (07/13/18). Plan: Gastric polyp s/p gastric wedge resection/polypectomy (2 cm, hyperplastic)- POD3 - Biopsied during EGD- negative, no H. pylori - Frozen section- hyperplasia - Gen surg consulted (Dr. Velazquez)- gastric wedge resection/polypectomy done Friday 07/13 - NGT removed on POD1 - Tylenol 650 mg PO q6hrs PRN - Dilaudid 0.5 mg IV q6hrs PRN - PT consult- rec TCU, OOB TID with meals Urinary retention, acute, resolved- post anesthesia - Straight cath x2- 1000 mL, 350 mL - Pace cath x24hrs- 1500 mL, 2800 mL - Removed Pace yesterday 07/15 HTN, chronic, improving- suspect 2/2 pain, Dilaudid, anxiety, IVF - Vitals q4hrs - Start Norvasc 5 mg PO daily - Discontinue Atenolol and start Coreg 25 mg PO BID - Hydralazine 10 mg PO QID PRN SBP >160 - Cardio consulted ([place])- changed atenolol to Coreg - F/u echo Gastritis and colitis, acute, resolved - EGD 07/08: Bx gastric polyp negative for H. pylori - Colonoscopy 07/09: colitis, spastic colon - C diff neg - Stool leukocytes neg - Stool O&P neg - HIV neg - Reglan 5 mg IV q6hrs - Simethicone 80 mg PO QID - Discontinued Cipro and Flagyl - ID consulted (Dr. Weems)- discontinue Florastor on 07/18 Sepsis, acute, resolved- suspect 2/2 gastritis/colitis - On admission: temp 102.8, HR 110 - Most recent fever 100.4 on 07/14 @ 3 PM, resolved without intervention - Repeat clean catch UA negative on 07/15 - Blood Cx negative >5 days, repeat neg >3 days, repeat neg >24 hrs - Stool Cx negative - CT A/P 07/07: no acute findings - Tylenol 650mg PO q6hrs PRN - Discontinued Rocephin, cipro, Flagyl - ID consulted (Dr. Weems) Oral thrush, acute, resolved - Discontinue Nystatin - Benzocaine/Menthol q4hrs PRN Vomiting, acute, resolved - Zofran 4mg IV Q6H PRN - Promethazine 6.25 mg PO TIDAC PRN Osteoporosis, chronic, stable - Continue home Calcium Carbonate 1 tab PO BID - Hold Alendronate 150mg PO daily due to possible GI side effects Anxiety - Trintellix 10 mg PO qhs - Xanax 0.5 mg BID prn IVF: not indicated GI ppx: Protonix 40mg IV daily, Florastor 250 mg PO BID VTE ppx: SCDs, Lovenox 30mg SC daily Diet: heart healthy Code status: full code <Antonio Batista H - Last Filed: 07/16/18 17:02> Objective - Vital Signs/Intake and Output Vital Signs (last 24 hours): Temp Pulse Resp BP Pulse Ox 98.6 F 85 20 108/74 96 07/16/18 15:00 07/16/18 15:00 07/16/18 15:00 07/16/18 15:00 07/16/18 15:00 Intake and Output: 07/16/18 07/16/18 06:59 18:59 Intake Total 960 Output Total 675 3 Balance 285 -3 - Medications Medications: Current Medications Acetaminophen (Tylenol 325mg Tab) 650 mg PO Q6 PRN PRN Reason: Fever >100.4 F Last Admin: 07/11/18 09:20 Dose: 650 mg Alprazolam (Xanax) 0.5 mg PO BID PRN PRN Reason: Anxiety Last Admin: 07/15/18 21:36 Dose: 0.5 mg Amlodipine Besylate (Norvasc) 5 mg PO DAILY [facility] Last Admin: 07/16/18 10:15 Dose: 5 mg Benzocaine/Menthol (Cepacol Sore Throat) 1 angel luis MT Q4H PRN PRN Reason: Sore Throat Last Admin: 07/15/18 20:09 Dose: 1 angel luis Calcium/Vitamin D (Oscal-D 250 Mg-125 Units Tab) 1 tab PO BID [facility] Last Admin: 07/16/18 10:15 Dose: 1 tab Carvedilol (Coreg) 25 mg PO BID [facility] Last Admin: 07/16/18 10:15 Dose: 25 mg Enoxaparin Sodium (Lovenox) 30 mg SC DAILY [facility] Last Admin: 07/16/18 10:15 Dose: 30 mg Home Med (Patient's Own Medication) 1 tab PO Q24H [facility] Last Admin: 07/16/18 13:56 Dose: 1 tab Hydralazine HCl (Apresoline) 10 mg PO QID PRN PRN Reason: HTN, SBP >160 Hydromorphone HCl (Dilaudid) 0.5 mg IVP Q6H PRN PRN Reason: Pain, moderate (4-7) Last Admin: 07/16/18 11:39 Dose: 0.5 mg Metoclopramide HCl (Reglan) 5 mg IVP Q6H PRN PRN Reason: Nausea/Vomiting Ondansetron HCl (Zofran Inj) 4 mg IVP Q6H PRN PRN Reason: Nausea/Vomiting Last Admin: 07/15/18 04:38 Dose: 4 mg Pantoprazole Sodium (Protonix Inj) 40 mg IVP DAILY [facility] Last Admin: 07/16/18 10:15 Dose: 40 mg Promethazine HCl (Phenergan Syrup) 6.25 mg PO TIDAC PRN PRN Reason: Nausea/Vomiting Last Admin: 07/16/18 11:46 Dose: 6.25 mg Saccharomyces Boulardii (Florastor) 250 mg PO BID [facility] Last Admin: 07/16/18 10:15 Dose: 250 mg Simethicone (Mylicon Chew Tab) 80 mg PO QID [facility] Last Admin: 07/16/18 13:55 Dose: 80 mg - Labs Labs: 07/16/18 07:19 07/16/18 07:19 PT 13.5 SECONDS (9.7-12.2) H 07/13/18 05:10 INR 1.2 07/13/18 05:10 APTT 30 SECONDS (21-34) 07/13/18 05:10 Attending/Attestation - Attestation I have personally seen and examined this patient.: Yes I have fully participated in the care of the patient.: Yes I have reviewed all pertinent clinical information, including history, physical exam and plan: Yes Notes (Text): Medical attending: Patient was seen and examined by me. Agree with the above note by the resident. She was not in any acute distress when I came and saw her with the site medical director's this morning The patient's biopsy of the gastric polyup that was removed was negative. She tolerated previous diet and her diet is being advanced today. Also blood pressure has been somewhat high so since her diet is being advanced to heart healthy then we will stop the IVF and continue to monitor. Possibly will be able to be discharged tommorow so long as tolerated diet. Antonio Batista
[2018-07-16 07:33] LABS: BASO # 0.1 K/uL (0.0-0.2); BASO % 0.7 % (0.0-2.0); EOS # 0.1 K/uL (0.0-0.7); EOS % 1.2 % (0.0-4.0); HEMOGLOBIN 12.3 g/dL (11.0-16.0); LYMPH # 2.6 K/uL (1.0-4.3); LYMPH % 28.6 % (20.0-40.0); MEAN CORPUSCULAR HEMOGLOBIN 29.2 pg (27.0-31.0); MEAN CORPUSCULAR HGB CONC 34.4 g/dL (33.0-37.0); MEAN PLATELET VOLUME 7.6 fL (7.2-11.7); MONO # 0.7 K/uL (0.0-0.8); MONO % 7.5 % (0.0-10.0); NEUT # 5.6 K/uL (1.8-7.0); NRBC % 0.1 % (0.0-2.0); RBC 4.2 Mil/uL (3.80-5.20); RED CELL DISTRIBUTION WIDTH 14.3 % (11.5-14.5)
[2018-07-16 07:42] LABS: ALB/GLOB RATIO 1.2 (1.0-2.1); ALBUMIN 3.6 g/dL (3.5-5.0); ALT/SGPT 41 U/L (9-52); AST/SGOT 21 U/L (14-36); BLOOD UREA NITROGEN 8 mg/dL (7-17); CALCIUM 9.1 mg/dl (8.6-10.4); GFR AFRICAN-AMERICAN > 60; GFR NON-AFRICAN AMERICAN > 60
--- NOTE | 2018-07-16 08:21 | CP.PCM.PN ---
Subjective - Date & Time of Evaluation Date of Evaluation: 07/16/18 Time of Evaluation: 06:55 - Subjective Subjective: General surgery progress note for Dr. Velazquez Patient seen and examined this morning at bedside. No acute events overnight per nursing. patient endorse + BM and flatus. patient otherwise denies n/v/f/ c. patient is tolerating diet well. Objective - Vital Signs/Intake and Output Vital Signs (last 24 hours): Temp Pulse Resp BP Pulse Ox 99.2 F 88 20 132/84 95 07/16/18 04:05 07/16/18 04:05 07/16/18 04:05 07/16/18 04:05 07/16/18 04:05 Intake and Output: 07/16/18 07/16/18 06:59 18:59 Intake Total 960 Output Total 675 Balance 285 - Medications Medications: Current Medications Acetaminophen (Tylenol 325mg Tab) 650 mg PO Q6 PRN PRN Reason: Fever >100.4 F Last Admin: 07/11/18 09:20 Dose: 650 mg Alprazolam (Xanax) 0.5 mg PO BID PRN PRN Reason: Anxiety Last Admin: 07/15/18 21:36 Dose: 0.5 mg Amlodipine Besylate (Norvasc) 5 mg PO DAILY [facility] Last Admin: 07/15/18 09:54 Dose: 5 mg Benzocaine/Menthol (Cepacol Sore Throat) 1 angel luis MT Q4H PRN PRN Reason: Sore Throat Last Admin: 07/15/18 20:09 Dose: 1 angel luis Calcium/Vitamin D (Oscal-D 250 Mg-125 Units Tab) 1 tab PO BID [facility] Last Admin: 07/15/18 17:18 Dose: 1 tab Carvedilol (Coreg) 25 mg PO BID [facility] Last Admin: 07/15/18 17:18 Dose: 25 mg Enoxaparin Sodium (Lovenox) 30 mg SC DAILY [facility] Last Admin: 07/15/18 09:54 Dose: 30 mg Home Med (Patient's Own Medication) 1 tab PO Q24H [facility] Last Admin: 07/15/18 14:19 Dose: 1 tab Hydralazine HCl (Apresoline) 10 mg PO QID PRN PRN Reason: HTN, SBP >160 Hydromorphone HCl (Dilaudid) 0.5 mg IVP Q6H PRN PRN Reason: Pain, moderate (4-7) Potassium Chloride/Dextrose/Sod Cl (Potassium Chl 20 Meq In D5-1/2ns) 1,000 mls @ 120 mls/hr IV .Q8H20M [facility] Last Admin: 07/16/18 05:50 Dose: 120 mls/hr Metoclopramide HCl (Reglan) 5 mg IVP Q6H [facility] Last Admin: 07/16/18 05:48 Dose: 5 mg Ondansetron HCl (Zofran Inj) 4 mg IVP Q6H PRN PRN Reason: Nausea/Vomiting Last Admin: 07/15/18 04:38 Dose: 4 mg Pantoprazole Sodium (Protonix Inj) 40 mg IVP DAILY [facility] Last Admin: 07/15/18 09:54 Dose: 40 mg Promethazine HCl (Phenergan Syrup) 6.25 mg PO TIDAC PRN PRN Reason: Nausea/Vomiting Last Admin: 07/15/18 20:08 Dose: 6.25 mg Saccharomyces Boulardii (Florastor) 250 mg PO BID [facility] Last Admin: 07/15/18 17:18 Dose: 250 mg Simethicone (Mylicon Chew Tab) 80 mg PO QID [facility] Last Admin: 07/15/18 21:36 Dose: 80 mg - Labs Labs: 07/16/18 07:19 07/16/18 07:19 PT 13.5 SECONDS (9.7-12.2) H 07/13/18 05:10 INR 1.2 07/13/18 05:10 APTT 30 SECONDS (21-34) 07/13/18 05:10 - Constitutional Appears: Well, Non-toxic, No Acute Distress - Eye Exam Eye Exam: Normal appearance - ENT Exam ENT Exam: Mucous Membranes Moist - Respiratory Exam Respiratory Exam: NORMAL BREATHING PATTERN - Cardiovascular Exam Cardiovascular Exam: +S1, +S2 - GI/Abdominal Exam GI & Abdominal Exam: Soft, Tenderness. absent: Distended, Firm, Guarding, Rigid , Rebound Additional comments: mild incision pain - Extremities Exam Extremities Exam: absent: Pedal Edema, Tenderness - Neurological Exam Neurological Exam: Alert, Awake, Oriented x3 - Psychiatric Exam Psychiatric exam: Normal Affect, Normal Mood - Skin Skin Exam: Dry, Intact, Normal Color, Warm Assessment and Plan - Assessment and Plan (Free Text) Assessment: 62 yr old female s/p large gastric polyp removal POD 3 Plan: - advance to regular diet today - patient having BM and flatus - encourage ambulation - continue ppi and lovenox - d/w Dr. Velazquez all further recs per him Sofy Browne, PGY 1
--- NOTE | 2018-07-16 09:38 | CP.PCM.PN ---
Subjective - Date & Time of Evaluation Date of Evaluation: 07/16/18 Time of Evaluation: 09:00 - Subjective Subjective: Jose Murphy, PGY1 Cardiology Progress Note for Dr. Toscano Patient was seen and examined at bedside this morning. Off-site language interpretation was used during interview. No overnight changes. BP was 132/84. Patient had a bowel movement and was seen ambulating from the bathroom to bed. Pace was removed yesterday, patient is making good urine output. Patient denied headache, chest pain, shortness of breath, numbness and tingling of extremities, vomiting, diarrhea, dysuria. Patients still has mild tenderness at incision site. Patient was explained the results of her recent echocardiogram. A full 12 point ROS was conducted and unremarkable except as stated above. Objective - Vital Signs/Intake and Output Vital Signs (last 24 hours): Temp Pulse Resp BP Pulse Ox 99.5 F 97 H 20 150/92 H 96 07/16/18 09:15 07/16/18 09:15 07/16/18 09:15 07/16/18 09:15 07/16/18 09:15 Intake and Output: 07/16/18 07/16/18 06:59 18:59 Intake Total 960 Output Total 675 Balance 285 - Medications Medications: Current Medications Acetaminophen (Tylenol 325mg Tab) 650 mg PO Q6 PRN PRN Reason: Fever >100.4 F Last Admin: 07/11/18 09:20 Dose: 650 mg Alprazolam (Xanax) 0.5 mg PO BID PRN PRN Reason: Anxiety Last Admin: 07/15/18 21:36 Dose: 0.5 mg Amlodipine Besylate (Norvasc) 5 mg PO DAILY [facility] Last Admin: 07/15/18 09:54 Dose: 5 mg Benzocaine/Menthol (Cepacol Sore Throat) 1 angel luis MT Q4H PRN PRN Reason: Sore Throat Last Admin: 07/15/18 20:09 Dose: 1 angel luis Calcium/Vitamin D (Oscal-D 250 Mg-125 Units Tab) 1 tab PO BID [facility] Last Admin: 07/15/18 17:18 Dose: 1 tab Carvedilol (Coreg) 25 mg PO BID [facility] Last Admin: 07/15/18 17:18 Dose: 25 mg Enoxaparin Sodium (Lovenox) 30 mg SC DAILY [facility] Last Admin: 07/15/18 09:54 Dose: 30 mg Home Med (Patient's Own Medication) 1 tab PO Q24H [facility] Last Admin: 07/15/18 14:19 Dose: 1 tab Hydralazine HCl (Apresoline) 10 mg PO QID PRN PRN Reason: HTN, SBP >160 Hydromorphone HCl (Dilaudid) 0.5 mg IVP Q6H PRN PRN Reason: Pain, moderate (4-7) Potassium Chloride/Dextrose/Sod Cl (Potassium Chl 20 Meq In D5-1/2ns) 1,000 mls @ 120 mls/hr IV .Q8H20M [facility] Last Admin: 07/16/18 05:50 Dose: 120 mls/hr Metoclopramide HCl (Reglan) 5 mg IVP Q6H [facility] Last Admin: 07/16/18 05:48 Dose: 5 mg Ondansetron HCl (Zofran Inj) 4 mg IVP Q6H PRN PRN Reason: Nausea/Vomiting Last Admin: 07/15/18 04:38 Dose: 4 mg Pantoprazole Sodium (Protonix Inj) 40 mg IVP DAILY [facility] Last Admin: 07/15/18 09:54 Dose: 40 mg Promethazine HCl (Phenergan Syrup) 6.25 mg PO TIDAC PRN PRN Reason: Nausea/Vomiting Last Admin: 07/15/18 20:08 Dose: 6.25 mg Saccharomyces Boulardii (Florastor) 250 mg PO BID [facility] Last Admin: 07/15/18 17:18 Dose: 250 mg Simethicone (Mylicon Chew Tab) 80 mg PO QID [facility] Last Admin: 07/15/18 21:36 Dose: 80 mg - Labs Labs: 07/16/18 07:19 07/16/18 07:19 PT 13.5 SECONDS (9.7-12.2) H 07/13/18 05:10 INR 1.2 07/13/18 05:10 APTT 30 SECONDS (21-34) 07/13/18 05:10 - Constitutional Appears: Well, No Acute Distress - Head Exam Head Exam: ATRAUMATIC, NORMAL INSPECTION, NORMOCEPHALIC - Eye Exam Eye Exam: EOMI, Normal appearance, PERRL Pupil Exam: NORMAL ACCOMODATION, PERRL - ENT Exam ENT Exam: Mucous Membranes Moist, Normal Exam - Neck Exam Neck Exam: Full ROM, Normal Inspection. absent: Lymphadenopathy - Respiratory Exam Respiratory Exam: Clear to Ausculation Bilateral, NORMAL BREATHING PATTERN. absent: Chest Wall Tenderness, Rales, Rhonchi, Wheezes, Respiratory Distress - Cardiovascular Exam Cardiovascular Exam: REGULAR RHYTHM, +S1, +S2. absent: Murmur - GI/Abdominal Exam GI & Abdominal Exam: Soft, Tenderness (Tenderness at the epigastric region (s/p gastric polypectomy)), Normal Bowel Sounds Additional comments: Dressing applied at the epigastric region. - Extremities Exam Extremities Exam: Full ROM, Normal Capillary Refill, Normal Inspection. absent : Joint Swelling, Pedal Edema - Back Exam Back Exam: NORMAL INSPECTION - Neurological Exam Neurological Exam: Alert, Awake, Normal Gait, Oriented x3 Neuro motor strength exam: Left Upper Extremity: 5, Right Upper Extremity: 5, Left Lower Extremity: 5, Right Lower Extremity: 5 - Skin Skin Exam: Dry, Intact, Normal Color, Warm Assessment and Plan - Assessment and Plan (Free Text) Assessment: Patient is a 62 y/o female with PMHX of HTN, depression, gastritis, arthritis, obesity, osteoporosis, ADRIANA (bipap at home) who presented to the ED c/ o epigastric pain with fever, nausea, non-bilious vomiting (x2), urinary frequency for 1-2 days. Endoscopy revealed medium sized hiatal hernia and a single 2 cm polyp at the greater curvature of stomach likely contributing to patient's GI complaints. Surgery consulted for removal of gastric polyp, in which they deemed patient was low risk for procedure. Patient is s/p partial gastrectomy/polypectomy. Jaclyn-operative evaluation conducted by cardiology team. Patient was hypertensive on the floor, BP medications adjusted. Patient's BP has been improving. Plan: HTN - BP is 132/84 - improved - continue to monitor BP - c/w carvedilol 25 mg PO BID - d/c Atenolol 50 mg PO daily - Maintain MAP > 65 Epigastric pain 2/2 Gastric polyp s/p gastric wedge resection/polypectomy (POD # 3) - Endoscopy: medium sized hiatal hernia. Single 2cm polyp at the greater curvature of stomach. Negative H. Pylori; Bx during EGD (likely benign). - s/p surgery (2 cm polyp removal); as deemed by surgery, low risk procedure. No complications from procedure. - Pace removed (07/15) - ECHO (07/14): EF 70%. Mild AR. Grossly normal study. - EKG (07/13): NSR. T wave inversion. - c/w zofran for nausea - c/w appropriate pain management - encourage ambulation; c/w PT ADRIANA - c/w BiPAP at night - Maintain SaO2 > 92% GI ppx: Protonix 40mg IV daily DVT ppx: SCDs and Lovenox 40mg SC daily Dispo: s/p gastric wedge resection/polypectomy (POD #3). Continue to monitor on the floor. Case was discussed and reviewed with Tractor [employer] Dr. Toscano.
[2018-07-16] MEDS: Simethicone 80 mg Chewtab PO SCH ×4 (10:15→22:15)
[2018-07-16] MEDS: Enoxaparin 30 mg Syringe SC SCH (10:15)
[2018-07-16] MEDS: Calcium-Vit D 250 mg-125 Units Tab UD PO SCH ×2 (10:15→17:56)
[2018-07-16] MEDS: Saccharomyces Boulardi 250 mg Cap PO SCH ×2 (10:15→17:56)
[2018-07-16] MEDS: Promethazine 6.25 MG/5 ML CUP PO PRN (11:46)
--- NOTE | 2018-07-16 14:37 | PN ---
Copied To: Doris Yin MD Attending MD: Doris Yin MD DATE: 07/16/2018 LOCATION: 664, bed B. SUBJECTIVE: This is a 62-year-old female post upper endoscopy with partial gastrectomy due to large gastric polypoid lesion, seen and examined in rounds without any significant clinical changes or reported active bleeding. No reported diarrhea since surgery or bowel movements, not passing gas yet. The entire chart is reviewed including but not limited to the most recent lab and radiology study results, current and the previous medication list, current and the previous medical events and today's lab showed normal CBC, low creatinine of 0.6. Blood glucose level 143. PHYSICAL EXAMINATION: GENERAL: A 62-year-old female. VITAL SIGNS: Temperature of 99.5, heart rate 94, respiratory rate 20 to 22, blood pressure of 144/90. HEENT: Showed pale, dry oral mucous membrane mildly, with nonicteric sclerae. LUNGS: Few scattered mild crepitation. Breathing sounds are present bilaterally. HEART: Positive S1 and S2 with increased rate. ABDOMEN: Abdomen covered with clean dressing. Bowel sounds are negative with mild abdominal distention. No mass or organomegaly. No rebound tenderness or guarding. EXTREMITIES: Without significant clubbing, cyanosis, or edema. NEUROLOGIC: No reported new neurological deficits, sensory, or motor. The patient started in for liquid diet, after which she had passed some gas. IMPRESSION: 1. Peptic ulcer disease with gastric polypoid lesion reported to be benign without any evidence of gastric adenocarcinoma. 2. Status post partial gastrectomy. 3. Known history of hypertension, left-sided colitis, anxiety with osteoporosis, by history. SUGGESTIONS: 1. Agree with your plan. 2. Continue proton pump inhibitors. 3. Carafate liquid p.o. 4. Further recommendation to follow and the patient may need repeat upper endoscopy within the next 3 to 6 months if symptoms recur. Doris Yin MD
[2018-07-16] MEDS ORDERED: Morphine 4 MG/ML VIAL IV PRN (16:54)
[2018-07-16] MEDS ORDERED: Oxycodone/Acetaminophen 5/325 mg Tab PO PRN (16:54)
--- NOTE | 2018-07-17 07:33 | CP.PCM.DIS ---
Provider - Provider Date of Admission: 07/09/18 11:36 Attending physician: Antonio Batista DO Primary care physician: Dr. Whittaker Consults: GI (Dr. Loya), Gen surg (Caroline), cardio (Dr. Toscano) Time Spent in preparation of Discharge (in minutes): 45 Diagnosis - Discharge Diagnosis (1) Benign gastric polyp Status: Resolved Priority: High Comment: s/p gastric wedge resection (2) HTN (hypertension) Status: Chronic Priority: Medium (3) Anxiety Status: Chronic Priority: Medium (4) Depression Status: Acute Priority: Low (5) Thrush, oral Status: Resolved Priority: Medium (6) Osteoporosis Status: Chronic Priority: Low Hospital Course - Lab Results Lab Results: Micro Results 07/11/18 14:43 Blood-Venous Blood Culture - Final NO GROWTH AFTER 5 DAYS 07/11/18 14:43 Blood-Venous Gram Stain - Final TEST NOT PERFORMED 07/11/18 14:30 Blood-Venous Blood Culture - Final NO GROWTH AFTER 5 DAYS 07/11/18 14:30 Blood-Venous Gram Stain - Final TEST NOT PERFORMED 07/15/18 14:00 Blood-Venous Blood Culture - Preliminary NO GROWTH AFTER 24 HOURS 07/15/18 11:16 Blood-Venous Blood Culture - Preliminary NO GROWTH AFTER 24 HOURS 07/07/18 15:30 Blood Blood Culture - Final NO GROWTH AFTER 5 DAYS 07/07/18 15:30 Blood Gram Stain - Final TEST NOT PERFORMED 07/07/18 16:00 Blood Blood Culture - Final NO GROWTH AFTER 5 DAYS 07/07/18 16:00 Blood Gram Stain - Final TEST NOT PERFORMED 07/11/18 14:43 Urine,Clean Catch Urine Culture - Final No Growth (<1,000 CFU/ML) 07/08/18 05:20 Stool Stool Culture - Final NO SALMONELLA, SHIGELLA OR CAMPYLOBACTER ISOLATED. 07/08/18 02:23 Urine,Clean Catch Urine Culture - Final No Growth (<1,000 CFU/ML) 07/07/18 16:04 Urine Urine Culture - Final 10-50,000 CFU/ML. MULTIPLE SPECIES. PROBABLE CONTAMINATION. 07/08/18 08:24 Stool Ova and Parasite Concentrate Exam - Final Most Recent Lab Values WBC 9.0 K/uL (4.8-10.8) 07/16/18 07:19 RBC 4.20 Mil/uL (3.80-5.20) 07/16/18 07:19 Hgb 12.3 g/dL (11.0-16.0) 07/16/18 07:19 Hct 35.7 % (34.0-47.0) 07/16/18 07:19 MCV 85.0 fL (81.0-99.0) 07/16/18 07:19 MCH 29.2 pg (27.0-31.0) 07/16/18 07:19 MCHC 34.4 g/dL (33.0-37.0) 07/16/18 07:19 RDW 14.3 % (11.5-14.5) 07/16/18 07:19 Plt Count 304 K/uL (130-400) 07/16/18 07:19 MPV 7.6 fL (7.2-11.7) 07/16/18 07:19 Neut % (Auto) 62.0 % (50.0-75.0) 07/16/18 07:19 Lymph % (Auto) 28.6 % (20.0-40.0) 07/16/18 07:19 Ma[place]ick % (Auto) 7.5 % (0.0-10.0) 07/16/18 07:19 Eos % (Auto) 1.2 % (0.0-4.0) 07/16/18 07:19 Baso % (Auto) 0.7 % (0.0-2.0) 07/16/18 07:19 Neut # (Auto) 5.6 K/uL (1.8-7.0) 07/16/18 07:19 Lymph # (Auto) 2.6 K/uL (1.0-4.3) 07/16/18 07:19 [place]ick # (Auto) 0.7 K/uL (0.0-0.8) 07/16/18 07:19 Eos # (Auto) 0.1 K/uL (0.0-0.7) 07/16/18 07:19 Baso # (Auto) 0.1 K/uL (0.0-0.2) 07/16/18 07:19 PT 13.5 SECONDS (9.7-12.2) H 07/13/18 05:10 INR 1.2 07/13/18 05:10 APTT 30 SECONDS (21-34) 07/13/18 05:10 pO2 44 mm/Hg (30-55) 07/11/18 13:09 VBG pH 7.39 (7.32-7.43) 07/11/18 13:09 VBG pCO2 38 mmHg (40-60) L 07/11/18 13:09 VBG HCO3 23.1 mmol/L 07/11/18 13:09 VBG Total CO2 24.2 mmol/L (22-28) 07/11/18 13:09 VBG O2 Sat (Calc) 83.4 % (40-65) H 07/11/18 13:09 VBG Base Excess -1.7 mmol/L (0.0-2.0) L 07/11/18 13:09 VBG Potassium 3.2 mmol/L (3.6-5.2) L 07/11/18 13:09 Sodium 142.0 mmol/l (132-148) 07/11/18 13:09 Chloride 109.0 mmol/L (98-107) H 07/11/18 13:09 Glucose 124 mg/dl (65-105) H 07/11/18 13:09 Lactate 1.9 mmol/L (0.7-2.1) 07/11/18 13:09 Sodium 139 mmol/L (132-148) 07/16/18 07:19 Potassium 4.0 mmol/L (3.6-5.2) 07/16/18 07:19 Chloride 104 mmol/L (98-107) 07/16/18 07:19 Carbon Dioxide 25 mmol/L (22-30) 07/16/18 07:19 Anion Gap 14 (10-20) 07/16/18 07:19 BUN 8 mg/dL (7-17) 07/16/18 07:19 Creatinine 0.6 mg/dL (0.7-1.2) L 07/16/18 07:19 Est GFR ( Amer) > 60 07/16/18 07:19 Est GFR (Non-Af Amer) > 60 07/16/18 07:19 POC Glucose (mg/dL) 137 mg/dL (65-110) H 07/15/18 06:18 Random Glucose 143 mg/dL (65-105) H 07/16/18 07:19 Lactic Acid 1.0 mmol/L (0.7-2.1) 07/08/18 11:24 Calcium 9.1 mg/dl (8.6-10.4) 07/16/18 07:19 Phosphorus 3.3 mg/dL (2.5-4.5) 07/16/18 07:19 Magnesium 2.0 mg/dL (1.6-2.3) 07/16/18 07:19 Total Bilirubin 0.6 mg/dL (0.2-1.3) 07/16/18 07:19 AST 21 U/L (14-36) 07/16/18 07:19 ALT 41 U/L (9-52) 07/16/18 07:19 Alkaline Phosphatase 59 U/L (38-126) 07/16/18 07:19 Total Protein 6.6 g/dL (6.3-8.3) 07/16/18 07:19 Albumin 3.6 g/dL (3.5-5.0) 07/16/18 07:19 Globulin 3.0 gm/dL (2.2-3.9) 07/16/18 07:19 Albumin/Globulin Ratio 1.2 (1.0-2.1) 07/16/18 07:19 Lipase 81 U/L (23-300) 07/07/18 16:03 Venous Blood Potassium 3.2 mmol/L (3.6-5.2) L 07/11/18 13:09 Urine Color Straw (YELLOW) 07/15/18 12:23 Urine Clarity Clear (Clear) 07/15/18 12:23 Urine pH 8.0 (5.0-8.0) 07/15/18 12:23 Ur Specific [place] 1.005 (1.003-1.030) 07/15/18 12:23 Urine Protein Negative mg/dL (NEGATIVE) 07/15/18 12:23 Urine Glucose (UA) Normal mg/dL (Normal) 07/15/18 12:23 Urine Ketones Negative mg/dL (NEGATIVE) 07/15/18 12:23 Urine Blood 1+ (NEGATIVE) H 07/15/18 12:23 Urine Nitrate Negative (NEGATIVE) 07/15/18 12:23 Urine Bilirubin Negative (NEGATIVE) 07/15/18 12:23 Urine Urobilinogen Normal mg/dL (0.2-1.0) 07/15/18 12:23 Ur Leukocyte Esterase Trace Santiago/uL (Negative) 07/15/18 12:23 Urine WBC (Auto) 3 /hpf (0-5) 07/15/18 12:23 Urine RBC (Auto) 2 /hpf (0-3) 07/15/18 12:23 Ur Squamous Epith Cells 1 /hpf (0-5) 07/11/18 14:43 Urine Bacteria Rare (<OCC) 07/15/18 12:23 Stool Leukocytes, Qual Negative (NEGATIVE) 07/08/18 08:24 C. difficile Ag & Toxin Negative (NEGATIVE) 07/08/18 05:20 HIV 1&2 Antibody Screen Negative (NEGATIVE) 07/12/18 08:28 Blood Type A NEGATIVE 07/13/18 05:10 Blood Type Confirm A NEGATIVE 07/13/18 05:10 Antibody Screen Negative 07/13/18 05:10 - Hospital Course Hospital Course: Patient is a 62 year old female with past medical history of hypertension, depression, gastritis, arthritis, osteoporosis, sleep apnea ( on Bipap at home), who presents to the ED with complaint of epigastric pain> lower abdominal pain with associated symptoms of subjective fever, nausea, non- bilious vomiting(x2) and urinary frequency x1-2 days. Patient reports that she was diagnosed with UTI 3 months ago and was seen by a Urologist, who prescribed a course of antibiotics for 10 days. Patient was suppose to follow up with the urologist but she never did. Patient admits to subjective fever, chills, nausea , vomiting, abdominal pain (epigastric> lower region), urinary frequency but denies hematuria, hematochezia, recent sickness, sick contact. Upon admission, patient was septic with temperature of 102.8 and HR 110. She was started on cipro and flagyl. EGD and colonoscopy were done. These revealed a large gastric polyp, colitis, and spastic colon. Stool studies were negative for bacterial causes, including C diff. Patient underwent gastric resection for removal of polyp on 07/13. Biopsy and frozen section were benign. Patient had elevated BP during the course of her admission. She was started on Norvasc and switched from Atenolol to Coreg. Patient developed oral thrush during her stay, which was treated with Nystatin and resolved before discharge. Upon discharge, patient's pain was well-controlled. Her BP had improved. She was afebrile >3 days. She was ambulating. She denied N/V/D/C. She denied urinary symptoms. She was tolerating a regular diet. Discharge Exam - Head Exam Head Exam: ATRAUMATIC, NORMAL INSPECTION, NORMOCEPHALIC - Eye Exam Eye Exam: EOMI, Normal appearance, PERRL - ENT Exam ENT Exam: Mucous Membranes Moist, Normal Exam - Neck Exam Neck exam: Normal Inspection - Respiratory Exam Respiratory Exam: Clear to PA & Lateral, NORMAL BREATHING PATTERN, UNREMARKABLE - Cardiovascular Exam Cardiovascular Exam: REGULAR RHYTHM, +S1, +S2 - GI/Abdominal Exam GI & Abdominal Exam: Normal Bowel Sounds Additional comments: delilah intact on vertical surgical scar- no signs of infection - Rectal Exam Rectal Exam: Deferred - Extremities Exam Extremities exam: normal capillary refill, normal inspection - Back Exam Back exam: NORMAL INSPECTION - Neurological Exam Neurological exam: Alert, CN II-XII Intact, Oriented x3 - Psychiatric Exam Psychiatric exam: Normal Affect, Normal Mood - Skin Skin Exam: Dry, Intact, Normal Color, Warm Discharge Plan - Discharge Medications Prescriptions: amLODIPine [Norvasc] 5 mg PO DAILY #30 tab Carvedilol [Coreg] 25 mg PO BID #60 tab oxyCODONE/Acetaminophen [Percocet 5/325 mg Tab] 1 tab PO Q6 PRN #12 tab PRN Reason: Pain, Severe (8-10) - Follow Up Plan Condition: IMPROVED Disposition: HOME/ ROUTINE Patient education suggested?: Yes Instructions: Heart Healthy Diet, Urinary Tract Infection, Adult (DC), Colonoscopy (DC), Nausea and Vomiting, Adult (DC), Upper GI Endoscopy (DC), Amlodipine, Carvedilol, Oxycodone and Acetaminophen, Gastrectomy (DC) Additional Instructions: Patient is cleared for discharge as per Dr. Antonio Batista. She will follow-up with her primary care provider, Dr. Whittaker, within one week of discharge. She will also follow-up with surgeon, Dr. Velazquez, for staple removal in approximately one week. She will be referred [facility], Dr. Loya, for follow-up EGD in approximately 8-10 weeks. Patient will be discharged with the following prescriptions: Norvasc 5 mg- take one by mouth daily Coreg 25 mg- take one by mouth two times a day Percocet 5/325 mg- take one by mouth every 6 hours as needed for pain Patient is to continue the following home medications: Tylenol 650 mg- take one by mouth every 6 hours as needed for pain Ibuprofen 600 mg- take one by mouth twice a day as needed for pain Protonix 40 mg- take one by mouth daily Pepcid 20 mg- take one by mouth daily Trintellix 10 mg- take one by mouth daily Xanax 0.5 mg- take one by mouth two times a day as needed for anxiety Calcium/vitamin D If symptoms worsen or recur, patient is instructed to return to the ED. Patient understands and agrees. El paciente est autorizado para el sahra segn el Dr. Antonio Batista. [place] josesito un seguimiento con mckinnon proveedor de atencin primaria, el Dr. Whittaker, mychal semana despus del sahra. [place] tambin josesito un seguimiento con el cirujano, el Dr. Velazquez, para la eliminacin de la grasa en aproximadamente mychal semana. [place] ser derivada a un gastroenterlogo, el Dr. Loya, para el seguimiento de EGD en aproximadamente 8-10 semanas. El paciente ser dado de sahra con las siguientes prescripciones: Norvasc 5 mg- tome lien por la boca todos los mendes Coreg 25 mg- tome lien por la boca dos veces al da Percocet 5/325 mg: tome lien por va oral cada 6 horas segn sea necesario para el dolor El paciente debe continuar con los siguientes medicamentos para el hogar: Tylenol 650 mg: tome lien por va oral cada 6 horas segn sea necesario para el dolor Ibuprofen 600 mg- tome lien por la boca dos veces al da segn sea necesario para el dolor Protonix 40 mg- tome lien por la boca todos los mendes Pepcid 20 mg- tome line por la boca todos los mendes Trintellix 10 mg- tome lien por la boca todos los mendes Xanax 0.5 mg- tome lien por la boca dos veces al da segn sea necesario para la ansiedad Calcio / vitamina D: tome lien por la boca todos los mendes Si los sntomas empeoran o reaparecen, se le indica al paciente que regrese al [place]. El paciente entiende y est de acuerdo. Referrals: Doris Loya [Staff Provider] - Allan Velazquez Jr., MD [Staff Provider] - Brad Whittaker MD [Staff Provider] -
[2018-07-17 07:40] LABS: BASO # 0.1 K/uL (0.0-0.2); BASO % 0.9 % (0.0-2.0); EOS # 0.2 K/uL (0.0-0.7); EOS % 1.6 % (0.0-4.0); HEMOGLOBIN 13.1 g/dL (11.0-16.0); LYMPH # 2.7 K/uL (1.0-4.3); LYMPH % 27.3 % (20.0-40.0); MEAN CELL VOLUME 84.5 fL (81.0-99.0); MEAN CORPUSCULAR HGB CONC 34.4 g/dL (33.0-37.0); MEAN PLATELET VOLUME 7.5 fL (7.2-11.7); MONO # 0.6 K/uL (0.0-0.8); MONO % 6.2 % (0.0-10.0); NEUT # 6.4 K/uL (1.8-7.0); RBC 4.52 Mil/uL (3.80-5.20); RED CELL DISTRIBUTION WIDTH 14.6 % (11.5-14.5)
[2018-07-17 08:06] VITALS: PULSE 90; RESP 18; TEMP 97.5; O2SAT 97
[2018-07-17 08:16] LABS: ALB/GLOB RATIO 1.1 (1.0-2.1); ALBUMIN 3.7 g/dL (3.5-5.0); ALT/SGPT 38 U/L (9-52); AST/SGOT 25 U/L (14-36); BLOOD UREA NITROGEN 10 mg/dL (7-17); GFR AFRICAN-AMERICAN > 60; GFR NON-AFRICAN AMERICAN > 60
[2018-07-17] MEDS: Simethicone 80 mg Chewtab PO SCH (10:35)
[2018-07-17] MEDS: Calcium-Vit D 250 mg-125 Units Tab UD PO SCH (10:35)
[2018-07-17] MEDS: Enoxaparin 30 mg Syringe SC SCH (10:35)
[2018-07-17] MEDS: Saccharomyces Boulardi 250 mg Cap PO SCH (10:35)
[2018-07-17 10:37] VITALS: BP 116/69
--- NOTE | 2018-07-17 11:32 | CP.PCM.PN ---
Subjective - Date & Time of Evaluation Date of Evaluation: 07/17/18 Time of Evaluation: 11:31 - Subjective Subjective: Surgery: Dr. Velazquez Pt seen and examined. Resting comfortably in bed. No complaints. Tolerated diet. +Flatus/BM. Objective - Vital Signs/Intake and Output Vital Signs (last 24 hours): Temp Pulse Resp BP Pulse Ox 97.5 F L 90 18 116/69 97 07/17/18 07:55 07/17/18 07:55 07/17/18 07:55 07/17/18 10:35 07/17/18 07:55 Intake and Output: 07/17/18 07/17/18 06:59 18:59 Output Total 1250 Balance -1250 - Medications Medications: Current Medications Acetaminophen (Tylenol 325mg Tab) 650 mg PO Q6 PRN PRN Reason: Fever >100.4 F Last Admin: 07/11/18 09:20 Dose: 650 mg Alprazolam (Xanax) 0.5 mg PO BID PRN PRN Reason: Anxiety Last Admin: 07/16/18 22:15 Dose: 0.5 mg Amlodipine Besylate (Norvasc) 5 mg PO DAILY [facility] Last Admin: 07/17/18 10:35 Dose: 5 mg Benzocaine/Menthol (Cepacol Sore Throat) 1 angel luis [place] Q4H PRN PRN Reason: Sore Throat Last Admin: 07/15/18 20:09 Dose: 1 angel luis Calcium/Vitamin D (Oscal-D 250 Mg-125 Units Tab) 1 tab PO BID [facility] Last Admin: 07/17/18 10:35 Dose: 1 tab Carvedilol (Coreg) 25 mg PO BID [facility] Last Admin: 07/17/18 10:35 Dose: 25 mg Docusate Sodium (Colace) 100 mg PO DAILY [facility] Last Admin: 07/17/18 10:35 Dose: 100 mg Enoxaparin Sodium (Lovenox) 30 mg SC DAILY [facility] Last Admin: 07/17/18 10:35 Dose: 30 mg Home Med (Patient's Own Medication) 1 tab PO Q24H [facility] Last Admin: 07/16/18 13:56 Dose: 1 tab Hydralazine HCl (Apresoline) 10 mg PO QID PRN PRN Reason: HTN, SBP >160 Metoclopramide HCl (Reglan) 5 mg IVP Q6H PRN PRN Reason: Nausea/Vomiting Morphine Sulfate (Morphine) 4 mg IV Q6 PRN PRN Reason: Pain, severe (8-10) Ondansetron HCl (Zofran Inj) 4 mg IVP Q6H PRN PRN Reason: Nausea/Vomiting Last Admin: 07/15/18 04:38 Dose: 4 mg Oxycodone/Acetaminophen (Percocet 5/325 Mg Tab) 1 tab PO Q4H PRN PRN Reason: Pain, moderate (4-7) Stop: 07/19/18 16:55 Pantoprazole Sodium (Protonix Inj) 40 mg IVP DAILY [facility] Last Admin: 07/17/18 10:35 Dose: 40 mg Promethazine HCl (Phenergan Syrup) 6.25 mg PO TIDAC PRN PRN Reason: Nausea/Vomiting Last Admin: 07/16/18 11:46 Dose: 6.25 mg Saccharomyces Boulardii (Florastor) 250 mg PO BID [facility] Last Admin: 07/17/18 10:35 Dose: 250 mg Simethicone (Mylicon Chew Tab) 80 mg PO QID [facility] Last Admin: 07/17/18 10:35 Dose: 80 mg - Labs Labs: 07/17/18 07:24 07/17/18 07:24 PT 13.5 SECONDS (9.7-12.2) H 07/13/18 05:10 INR 1.2 07/13/18 05:10 APTT 30 SECONDS (21-34) 07/13/18 05:10 - Constitutional Appears: Non-toxic, No Acute Distress - Head Exam Head Exam: ATRAUMATIC, NORMOCEPHALIC - Eye Exam Eye Exam: EOMI - ENT Exam ENT Exam: Mucous Membranes Moist - Neck Exam Neck Exam: Full ROM, Normal Inspection - Respiratory Exam Respiratory Exam: NORMAL BREATHING PATTERN. absent: Accessory Muscle Use, Respiratory Distress - GI/Abdominal Exam GI & Abdominal Exam: Soft. absent: Distended, Firm, Guarding, Rigid, Tenderness , Rebound Additional comments: midline incision C/D/I - Extremities Exam Extremities Exam: absent: Calf Tenderness, Pedal Edema - Neurological Exam Neurological Exam: Alert, Awake, Oriented x3 - Psychiatric Exam Psychiatric exam: Normal Affect, Normal Mood Assessment and Plan - Assessment and Plan (Free Text) Assessment: 62F w. gastric polyp, s/p gastric wedge resection POD#4 -Tolerating regular diet -clear for D/C from surgical standpoint -f/u w. Dr. Velazquez in 1-2 weeks -d/w attending Matt PGY4
--- NOTE | 2018-07-17 14:59 | PN ---
Copied To: Doris Yin MD Attending MD: Doris Yin MD DATE: 07/17/2018 LOCATION: 664, bed B. SUBJECTIVE: This is a 62-year-old female seen and examined in rounds today without significant clinical changes or reported active bleeding, appeared to be awake, alert, oriented, out of bed, somewhat tolerating oral intake. The entire chart is reviewed including but not limited to the most recent lab and radiology study results, current and the previous medication list, current and the previous medical events. Most recent lab results today showed normal CBC with blood glucose level 133 and phosphorus 4.6. PHYSICAL EXAMINATION: GENERAL: A 62-year-old female. VITAL SIGNS: Afebrile with pulse of 92, respiratory rate 18 to 20, blood pressure 132/82. HEENT: Showed mildly pale, dry oral mucous membrane. Nonicteric sclerae. LUNGS: Few scattered crepitation. Decreased air entry at bases. HEART: Positive S1 and S2. ABDOMEN: Soft. Bowel sounds are present. No mass or organomegaly. No rebound tenderness or guarding, but generalized tenderness. EXTREMITIES: Without edema, clubbing or cyanosis. IMPRESSION: 1. Gastric polypoid mass lesion, removed by endoscopy. 2. Electrolyte imbalance with hyperphosphatemia. 3. Re-exacerbation of peptic ulcer disease. 4. Known history of colitis, hypertension with osteoporosis and anxiety syndrome. SUGGESTIONS: 1. Continue current management. 2. The patient will be followed up as outpatient post discharge. 3. Further recommendation to follow. Doris Yin MD
== END 2018-07-17 12:05 | disposition home or self-care (01) | DRG 854 ==
LOC: C.ER 15:20 → C.9E 18:34 → C.6T 22:18 → OBSVTOIN 07-09 11:36
PROVIDERS: ADMIT Hospitalist; ATTEND Hospitalist
PROC: 0DB68ZX Excision of Stomach, Via Natural or Artificial Opening Endoscopic, Diagnostic (ICD-10-PCS; 2018-07-08)
PROC: 0DBM7ZX Excision of Descending Colon, Via Natural or Artificial Opening, Diagnostic (ICD-10-PCS; 2018-07-09)
PROC: 0DB60ZZ Excision of Stomach, Open Approach (ICD-10-PCS; principal; 2018-07-13 07:45)
DX: A41.9 Sepsis, unspecified organism (principal); K51.50 Left sided colitis without complications; K57.92 Diverticulitis of intestine, part unspecified, without perforation or abscess without bleeding; B37.0 Candidal stomatitis; N39.0 Urinary tract infection, site not specified; K31.7 Polyp of stomach and duodenum; K44.9 Diaphragmatic hernia without obstruction or gangrene; K29.70 Gastritis, unspecified, without bleeding; K64.8 Other hemorrhoids; K58.9 Irritable bowel syndrome, unspecified; N18.9 Chronic kidney disease, unspecified; R09.02 Hypoxemia; Z68.30 Body mass index [BMI] 30.0-30.9, adult; K21.9 Gastro-esophageal reflux disease without esophagitis; I12.9 Hypertensive chronic kidney disease with stage 1 through stage 4 chronic kidney disease, or unspecified chronic kidney disease; H40.9 Unspecified glaucoma; G47.33 Obstructive sleep apnea (adult) (pediatric); F41.9 Anxiety disorder, unspecified; M81.0 Age-related osteoporosis without current pathological fracture; E83.39 Other disorders of phosphorus metabolism

== ENCOUNTER 2018-11-17 05:59 | Day surgery (SDC) | payer MEDICARE, OTHER ==
[2018-11-17] MEDS ORDERED: Propofol 10 mg/ml Inj (20 ML) ONE (07:53)
[2018-11-17] MEDS ORDERED: Midazolam 2 MG/2 ML VIAL ONE (07:53)
--- NOTE | 2018-11-17 07:54 | CP.SDSHP ---
Same Day Surgery H & P - History Proposed Procedure: EGD Pre-Op Diagnosis: SEE NOTES - Previous Medical/Surgical History Cardiac: Hypertension Neuro: Other Misc: Other Pain: 4.Moderate Pain Previous Surgical History: G. POLYP SX. - Allergies Allergies: Allergies No Known Allergies Allergy (Verified 07/07/18 15:32) - Physical Exam General Appearance: N Vital Signs: Vital Signs 11/17/18 06:39 Temperature 97 F L Pulse Rate 70 Respiratory 19 Rate Blood Pressure 148/91 H O2 Sat by Pulse 98 Oximetry Mental Status: Alert & Oriented x3 Heart: Other Lungs: WNL GI: Other - {Optional Preform as Required} Breast: WNL Abdomen: Other Rectal: Other Integument: WNL : WNL Ortho: WNL ENT: Other - Impression Pt. Evaluated Today:Candidate for Anesthesia & Procedure: Yes - Date & Time Time: 07:54 Short Stay Discharge - Short Stay Discharge Admitting Diagnosis/Reason for Visit: DYSPEPSIA / P/H COLONIC POLYPS Disposition: HOME/ ROUTINE
[2018-11-17] MEDS ORDERED: Belladonna-Phenobarbital PO STA (07:56)
[2018-11-17 08:19] VITALS: TEMP 97.5; O2SAT 100
[2018-11-17 11:25] VITALS: BP 120/68; PULSE 63; RESP 15
== END 2018-11-17 09:10 | disposition home or self-care (01) ==
LOC: C.ENDO 05:59
PROVIDERS: ATTEND Specialist
DX: K30 Functional dyspepsia (principal); Z86.010 Personal history of colon polyps; R10.9 Unspecified abdominal pain; K31.7 Polyp of stomach and duodenum; K29.70 Gastritis, unspecified, without bleeding
CPT/HCPCS: 43235; 88305; 88342; J2001; J2250; J2704

== ENCOUNTER 2019-01-14 08:45 | Emergency (ER) | payer MEDICARE, OTHER ==
[2019-01-14 08:45] VITALS: BMI 29.2
[2019-01-14 08:59] VITALS: RESP 20; TEMP 97.9
--- NOTE | 2019-01-14 09:58 | C.PDOC ---
History Of Present Illness 63 y/o female presents to the ER complaining of right foot pain which has been present for the past 3 days. Patient states that she has pain with walking. Patient denies having trauma, falls, weakness and numbness. Chief Complaint (Nursing): Lower Extremity Problem/Injury History Per: Patient History/Exam Limitations: no limitations Onset/Duration Of Symptoms: Days Current Symptoms Are (Timing): Still Present Severity: Moderate Past Medical History Reviewed: Historical Data, Nursing Documentation, Vital Signs Vital Signs: Last Vital Signs Temp 97.9 F 01/14/19 08:47 Pulse 99 H 01/14/19 08:47 Resp 20 01/14/19 08:47 BP 122/78 01/14/19 08:47 Pulse Ox 100 01/14/19 08:47 - Medical History PMH: Anxiety, Depression, Gastritis, HTN, Hypercholesterolemia, Osteoporosis, Chronic Kidney Disease, Sleep Apnea (SCHEDULED FOR SLEEP STUDY) Surgical History: Endoscopy - [facility] Procedures ENDOSC POLYPECTOMY OF LG INTEST (08/25/14) EXCISION OF DESCENDING COLON, VIA OPENING, DIAGN (07/09/18) EXCISION OF STOMACH, ENDO, DIAGN (07/09/18) EXCISION OF STOMACH, OPEN APPROACH (07/09/18) Family History: States: No Known Family Hx - Social History Hx Tobacco Use: No Hx Alcohol Use: No Hx Substance Use: No - Immunization History Hx Tetanus Toxoid Vaccination: No Hx Influenza Vaccination: No Hx Pneumococcal Vaccination: No Review Of Systems Except As Marked, All Systems Reviewed And Found Negative. Musculoskeletal: Positive for: Foot Pain (right foot pain) Neurological: Negative for: Weakness, Numbness Physical Exam - Physical Exam Appears: Non-toxic, No Acute Distress Skin: Normal Color, Warm, Dry Head: Atraumatic, Normacephalic Eye(s): bilateral: Normal Inspection Nose: Normal Oral Mucosa: Moist Neck: Supple Chest: Symmetrical Extremity: Normal ROM Extremity: Right: Bony Point Tenderness (point tenderness to calcaneus of right foot) Neurological/Psych: Oriented x3, Normal Speech Gait: Steady ED Course And Treatment O2 Sat by Pulse Oximetry: 100 (RA) Pulse Ox Interpretation: Normal - Other Rad X-Ray-Right Foot X-Ray: Viewed By Me, Read By Radiologist Interpretation: Date of service: 01/14/2019. PROCEDURE: Right Foot Radiographs. HISTORY: Pain. No history of recent/ related trauma provided. COMPARISON: None. FINDINGS: BONES: Normal. No fracture. JOINTS: Normal. SOFT TISSUES: Normal. OTHER FINDINGS: None. IMPRESSION: Unremarkable right foot radiographs. Medical Decision Making Medical Decision Making: Plan: --X-Ray-Right Foot --Motrin PO Disposition - Disposition Referrals: [facility] [Outside] Podiatry Clinic [Outside] Disposition: HOME/ ROUTINE Disposition Time: 09:55 Condition: GOOD Additional Instructions: MARK RANDLE, thank you for letting us take care of you today. Your provider was Job Bustos DO and you were treated for FOOT PAIN. The emergency medical care you received today was directed at your acute symptoms. If you were prescribed any medication, please fill it and take as directed. It may take several days for your symptoms to resolve. Return to the Emergency Department if your symptoms worsen, do not improve, or if you have any other problems. Please contact your doctor or call one of the physicians/clinics you have been referred to that are listed on the Patient Visit Information form that is included in your discharge packet. Bring any paperwork you were given at discharge with you along with any medications you are taking to your follow up visit. Our treatment cannot replace ongoing medical care by a primary care provider outside of the emergency department. Thank you for allowing the [facility] team to be part of your care today. Follow up with the podiatry clinic in 3-4 days for re-evaluation and further management. MARK RANDLE, dex por dejarnos cuidar de usted hoy. Thao proveedor fue Job Bustos DO y recibi tratamiento para el [place] [facility]. La atencin mdica de emergencia que recibi hoy se dirigi a fareed sntomas agudos. Si le recetaron algn medicamento, llnelo y tmelo segn las indicaciones. Los sntomas pueden tardar varios mendes en resolverse. Regrese al Departamento de Emergencias si fareed sntomas empeoran, no mejoran o si tiene otro s problemas. Comunquese con thao mdico o llame a lien de los mdicos / clnicas a los que castro sido referido que figuran en el formulario de Informacin de visita al paciente que se incluye en thao paquete de sahra. Lleve todos los documentos que le entregaron al momento del sahra junto con todos los medicamentos que est tomando para thao visita de seguimiento. Nuestro tratamiento no puede reemplazar la atencin mdica continua por un proveedor de atencin primaria fuera del departamento de emergencias. Dex por permitir que el equipo de [facility] [employer] sea parte de thao atencin hoy. Ra un seguimiento con la clnica de podologa en 3 a 4 mendes para mychal reevaluacin y manejo adicional. Prescriptions: Ibuprofen [Motrin] 600 mg PO Q6 PRN #20 tab PRN Reason: Pain, Moderate (4-7) Instructions: Foot Sprain (DC) Forms: [employer] (Urdu) Print Language: EQUATORIAL GUINEAN - Clinical Impression Clinical Impression: Foot pain - Scribe Statement The provider has reviewed the documentation as recorded by the Scribe Summradha Tacho Provider Attestation: All medical record entries made by the Scribe were at my direction and personally dictated by me. I have reviewed the chart and agree that the record accurately reflects my personal performance of the history, physical exam, medical decision making, and the department course for this patient. I have also personally directed, reviewed, and agree with the discharge instructions and disposition.
[2019-01-14 10:50] VITALS: BP 121/80; PULSE 57
[2019-01-14 13:01] VITALS: O2SAT 100
--- NOTE | 2019-01-14 13:23 | RAD ---
Date of service: 01/14/2019 PROCEDURE: Right Foot Radiographs. HISTORY: Pain. No history of recent/ related trauma provided COMPARISON: None. FINDINGS: BONES: Normal. No fracture. JOINTS: Normal. SOFT TISSUES: Normal. OTHER FINDINGS: None. IMPRESSION: Unremarkable right foot radiographs.
== END 2019-01-14 12:02 | disposition home or self-care (01) ==
LOC: C.ER 08:45
DX: M79.671 Pain in right foot (principal); E78.00 Pure hypercholesterolemia, unspecified; I10 Essential (primary) hypertension

== ENCOUNTER 2019-02-07 04:16 | Emergency (ER) | payer MEDICARE, OTHER ==
[2019-02-07 04:16] VITALS: BMI 29.2
--- NOTE | 2019-02-07 05:40 | C.PDOC ---
History Of Present Illness 63 year old female presents to the ED c/o fever, chills and cough. Patient reports she was recently seen by her PMD on Friday, patient was prescribed Augmentin and cough medication. Patient reports no improvement. Patient denies CP, SOB, palpitations, nausea, vomit, diarrhea, rash, sick contacts. Time Seen by Provider: 02/07/19 05:40 Chief Complaint (Nursing): Flu-like Symptoms History Per: Patient History/Exam Limitations: no limitations Onset/Duration Of Symptoms: Days Current Symptoms Are (Timing): Still Present Location Of Pain: Throat, Sinus/es Sick Contacts (Context): None Associated Symptoms: Fever, Chills, Cough Ear Symptoms: Bilateral: None Recent travel outside of the [place]: No Additional History Per: Patient Past Medical History Reviewed: Historical Data, Nursing Documentation, Vital Signs Vital Signs: Last Vital Signs Temp 98.8 F 02/07/19 04:29 Pulse 104 H 02/07/19 04:29 Resp 22 02/07/19 04:29 BP 114/72 02/07/19 04:29 Pulse Ox 98 02/07/19 04:29 - Medical History PMH: Anxiety, Depression, Gastritis, HTN, Hypercholesterolemia, Osteoporosis, Chronic Kidney Disease, Sleep Apnea (SCHEDULED FOR SLEEP STUDY) Surgical History: Endoscopy - [facility] Procedures ENDOSC POLYPECTOMY OF LG INTEST (08/25/14) EXCISION OF DESCENDING COLON, VIA OPENING, DIAGN (07/09/18) EXCISION OF STOMACH, ENDO, DIAGN (07/09/18) EXCISION OF STOMACH, OPEN APPROACH (07/09/18) Family History: States: Unknown Family Hx - Social History Hx Tobacco Use: No Hx Alcohol Use: No Hx Substance Use: No - Immunization History Hx Tetanus Toxoid Vaccination: No Hx Influenza Vaccination: No Hx Pneumococcal Vaccination: No Review Of Systems Constitutional: Positive for: Fever, Chills ENT: Negative for: Nose Discharge, Nose Congestion Respiratory: Positive for: Cough. Negative for: Shortness of Breath, Sputum, Wheezing Gastrointestinal: Negative for: Nausea, Abdominal Pain Skin: Negative for: Rash Neurological: Negative for: Weakness, Numbness Physical Exam - Physical Exam Appears: Non-toxic, No Acute Distress Skin: Warm, Dry Head: Normacephalic Eye(s): bilateral: Normal Inspection Ear(s): Bilateral: Normal Oral Mucosa: Moist Throat: No Erythema, No Exudate, No Drooling Neck: Supple Chest: Symmetrical Cardiovascular: Rhythm Regular Respiratory: No Rales, No Rhonchi, No Wheezing Gastrointestinal/Abdominal: Soft, No Tenderness, No Guarding, No Rebound Extremity: Bilateral: Atraumatic, Normal Color And Temperature, Normal ROM Neurological/Psych: Oriented x3, Normal Speech Gait: Steady ED Course And Treatment - Laboratory Results Result Diagrams: 02/07/19 06:11 02/07/19 06:11 O2 Sat by Pulse Oximetry: 98 (On RA) Pulse Ox Interpretation: Normal - Radiology CXR: Interpreted by Me, Viewed By Me CXR Interpretation: No: Infiltrates, Fracture, Pnemothorax Progress Note: Plan: - VBG. - Labs. - Duoneb. - IV fluids. - Toradol 30 mg IVP. - Influenza A B Reevaluation Time: 06:51 Reassessment Condition: Improved Medical Decision Making Medical Decision Making: Upon provider reevaluation patient is feeling better, is medically stable, and requires no further treatment in the ED at this time. Patient will be discharged home with Rx for albuterol, tesselon . Counseling was provided and all questions were answered regarding diagnosis and need for follow up with dr whittaker. There is agreement to discharge plan. Return if symptoms persist or worsen. Disposition Counseled Patient/Family Regarding: Studies Performed, Diagnosis, Need For Followup - Disposition Referrals: Brad Whittaker MD [Staff Provider] - Disposition: HOME/ ROUTINE Disposition Time: 05:40 Condition: FAIR Additional Instructions: Please return if symptoms recur Prescriptions: Albuterol HFA [Ventolin HFA 90 mcg/actuation (8 g)] 2 puff IH [id number] #1 puff Benzonatate [Tessalon Perle] 100 mg PO TID PRN #15 capsule PRN Reason: Cough Instructions: Acute Bronchitis, Adult (DC) Forms: [facility] (Czech) Print Language: SLOVAK - Clinical Impression Clinical Impression: Bronchitis - Scribe Statement The provider has reviewed the documentation as recorded by the Scribe Jayson Garcia All medical record entries made by the Scribe were at my direction and pe rsonally dictated by me. I have reviewed the chart and agree that the record accurately reflects my personal performance of the history, physical exam, medical decision making, and the department course for this patient. I have also personally directed, reviewed, and agree with the discharge instructions and disposition.
[2019-02-07] MEDS ORDERED: Sodium Chloride 0.9% 1,000 ML IV SCH (05:45)
[2019-02-07] MEDS ORDERED: Albuterol-Ipratrop 3 mg / 0.5 (3 ml) UD ONE (06:06)
[2019-02-07] MEDS: Albuterol-Ipratrop 3 mg / 0.5 (3 ml) UD IH SCH ×2 (06:07→06:08)
[2019-02-07 06:10] LABS: VENOUS BLOOD GAS BASE EXCESS -0.2 mmol/L (0.0-2.0); VENOUS BLOOD GAS PCO2 44 mmHg (40-60); VENOUS BLOOD GAS PO2 42 mm/Hg (30-55); VENOUS BLOOD PH 7.37 (7.32-7.43)
[2019-02-07] MEDS ORDERED: Sodium Chloride 0.9% 1,000 ML ONE (06:18)
[2019-02-07 06:19] LABS: BASO % 0.6 % (0.0-2.0); EOS % 0.2 % (0.0-4.0); LYMPH # 1.9 K/uL (1.0-4.3); LYMPH % 23.2 % (20.0-40.0); MEAN CELL VOLUME 88.6 fL (81.0-99.0); MEAN CORPUSCULAR HEMOGLOBIN 28.4 pg (27.0-31.0); MEAN PLATELET VOLUME 7.1 fL (7.2-11.7); MONO # 0.8 K/uL (0.0-0.8); MONO % 10.1 % (0.0-10.0); NEUT # 5.3 K/uL (1.8-7.0); NEUT % 65.9 % (50.0-75.0); NRBC % 0.1 % (0.0-2.0); RBC 4.58 Mil/uL (3.80-5.20); RED CELL DISTRIBUTION WIDTH 14.8 % (11.5-14.5)
[2019-02-07 06:24] VITALS: TEMP 99
[2019-02-07 06:26] LABS: ALB/GLOB RATIO 1.3 (1.0-2.1); ALBUMIN 4.1 g/dL (3.5-5.0); ALT/SGPT 19 U/L (9-52); AST/SGOT 16 U/L (14-36); BLOOD UREA NITROGEN 12 mg/dL (7-17); CALCIUM 8.8 mg/dl (8.6-10.4); GFR NON-AFRICAN AMERICAN > 60
[2019-02-07 06:52] VITALS: BP 113/78; PULSE 84; RESP 14
[2019-02-07 06:54] VITALS: O2SAT 98
--- NOTE | 2019-02-07 10:33 | RAD ---
Date of service: 02/07/2019 PROCEDURE: CHEST RADIOGRAPH, 1 VIEW HISTORY: SOB COMPARISON: Comparison is made with 07/11/2018. FINDINGS: LUNGS: Suboptimal study with poor inspiratory effort. Bibasilar opacities likely atelectasis. Mild elevation of the right hemidiaphragm is noted. PLEURA: No pneumothorax or pleural fluid seen. CARDIOVASCULAR: No aortic atherosclerotic calcification present. Normal. OSSEOUS STRUCTURES: No significant abnormalities. VISUALIZED UPPER ABDOMEN: Normal. OTHER FINDINGS: None. IMPRESSION: Small opacities at the lung bases likely atelectasis.
== END 2019-02-07 07:01 | disposition home or self-care (01) ==
LOC: C.ER 04:16
DX: J40 Bronchitis, not specified as acute or chronic (principal)
CPT/HCPCS: 71045; 80053; 82803; 85025; 87804; 94640; 96374; 99283; J1885; J7030

== ENCOUNTER 2019-02-26 07:50 | Outpatient (CLI) | payer MEDICARE | END 2019-02-26 07:51 | disposition home or self-care (01) | LOC: C.LAB 07:50 ==

== ENCOUNTER 2019-04-15 07:13 | Emergency (ER) | payer MEDICARE, OTHER ==
[2019-04-15 07:13] VITALS: BMI 29.2
[2019-04-15 07:35] VITALS: RESP 17
--- NOTE | 2019-04-15 07:40 | C.PDOC ---
History Of Present Illness 63 year old female with a past medical history of hypertension, depression, gastritis, arthritis, osteoporosis, sleep apnea (on Bipap at home), presents to the emergency department with complaints of persistent anxiety for the last 2-3 months. Patient states that she saw her psychiatrist for the same thing and was prescribed Restoril, which she took her first dose of last night. Patient also reports being on Xanax for many years, taking 1mg at night and 0.25mg in the morning. Patient reports that she has trouble sleeping due to feeling more anxious at night, but denies other suicidal ideation and other symptoms. History Per: Patient History/Exam Limitations: no limitations Onset/Duration Of Symptoms: Other (2-3 months) Current Symptoms Are (Timing): Still Present Reports Recently: Treated By A Physician (psychiatrist) Past Medical History Reviewed: Historical Data, Nursing Documentation, Vital Signs Vital Signs: Last Vital Signs Temp 98.4 F 04/15/19 07:32 Pulse 82 04/15/19 07:32 Resp 17 04/15/19 07:32 BP 152/93 H 04/15/19 07:32 Pulse Ox 95 04/15/19 07:32 Primary Care Provider: Brad Whittaker - Medical History PMH: Anxiety, Depression, Gastritis, HTN, Hypercholesterolemia, Osteoporosis, Chronic Kidney Disease, Sleep Apnea Surgical History: Endoscopy - [facility] Procedures ENDOSC POLYPECTOMY OF LG INTEST (08/25/14) EXCISION OF DESCENDING COLON, VIA OPENING, DIAGN (07/09/18) EXCISION OF STOMACH, ENDO, DIAGN (07/09/18) EXCISION OF STOMACH, OPEN APPROACH (07/09/18) Family History: States: No Known Family Hx - Social History Hx Tobacco Use: No Hx Alcohol Use: No Hx Substance Use: No - Immunization History Hx Tetanus Toxoid Vaccination: No Hx Influenza Vaccination: Yes Hx Pneumococcal Vaccination: Yes Review Of Systems Except As Marked, All Systems Reviewed And Found Negative. Constitutional: Negative for: Fever, Chills Respiratory: Negative for: Cough, Shortness of Breath Gastrointestinal: Negative for: Nausea, Vomiting Neurological: Negative for: Altered Mental Status Psych: Positive for: Anxiety. Negative for: Suicidal ideation Physical Exam - Physical Exam Appears: Non-toxic, No Acute Distress Skin: Normal Color, Warm, Dry Head: Atraumatic, Normacephalic Eye(s): bilateral: Normal Inspection, PERRL, EOMI Nose: Normal Oral Mucosa: Moist Neck: Normal, Supple Chest: Symmetrical, No Tenderness Cardiovascular: Rhythm Regular Respiratory: Normal Breath Sounds Extremity: Normal ROM Neurological/Psych: Oriented x3, Normal Speech, Normal Cognition, Other (calm, cooperative, NO suicidal ideation) ED Course And Treatment O2 Sat by Pulse Oximetry: 95 (RA) Pulse Ox Interpretation: Normal Progress - Data Reviewed Data Reviewed: Old records Medical Decision Making Medical Decision Making: Patient advised to take 1.25mg of Xanax at night and continue to take her routine morning daily dose of 0.25mg. Patient advised to f/u with psychiatrist as scheduled for 04-20-19. Of note, patient has been requesting admission for HTN and anxiety. Disposition Counseled Patient/Family Regarding: Diagnosis, Need For Followup - Disposition Referrals: YOUR,PSYCHIATRIST [Other] Disposition: HOME/ ROUTINE Disposition Time: 08:18 Condition: GOOD Instructions: Anxiety, Adult (DC) Print Language: KOREAN - Clinical Impression Clinical Impression: Chronic anxiety - Scribe Statement The provider has reviewed the documentation as recorded by the Scribe (Lang Kitchen) Provider Attestation: All medical record entries made by the Scribe were at my direction and personally dictated by me. I have reviewed the chart and agree that the record accurately reflects my personal performance of the history, physical exam, medical decision making, and the department course for this patient. I have also personally directed, reviewed, and agree with the discharge instructions and disposition.
[2019-04-15 08:30] VITALS: BP 155/102; PULSE 83; TEMP 98.5
[2019-04-15 08:32] VITALS: O2SAT 95
== END 2019-04-15 08:30 | disposition home or self-care (01) ==
LOC: C.ER 07:13
DX: F41.9 Anxiety disorder, unspecified (principal)